=== PATIENT | male | born 1975 | race Caucasian/White ===

== ENCOUNTER 2016-12-17 09:38 | Observation (INO) ==
--- NOTE | 2016-12-17 09:54 | Emergency Department Note ---
Disposition Clinical Impression: Abnormal EKG, Diabetes mellitus, Obesity, History of hypertension, History of hyperlipidemia, Chest pain Disposition: Admitted As Inpatient Referrals: Kimo Qiu MD [Primary Care Provider] - General Adult HPI - General Stated complaint: chest pain to L arm Time Seen by Provider: 12/17/16 09:45 - History of Present Illness HPI Narrative: 41-year-old male reports emergency department complaining of left-sided chest pain going to the left arm. He was at work today. 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 There is no history of trauma. The pain is not associated with movement. There is no history of cough or coughing up blood. No leg swelling or pain. No trauma rash or fever. The patient describes a pressure-like sensation. He has no known history of coronary disease DVT PE or cancer. No primary lung disease like COPD or asthma. There is no history of back pain. He has no personal history of aneurysm. The pain started earlier this morning. He states he had a remote cardiac evaluation and was told he had a heart attack in the past. The patient has no coronary stents. He is not anticoagulated this time. There is no history of acute anxiety. The patient denies any abdominal pain vomiting or diarrhea. There is no history of acute back pain. - Related Data Home Medications Medication Instructions Recorded Confirmed Canagliflozin [Invokana] 100 mg PO DAILY 11/20/15 04/17/16 Citalopram 20 mg PO DAILY 11/20/15 04/17/16 Esomeprazole Magnesium [Nexium 20 mg PO DAILY 11/20/15 04/17/16 24Hr] Gabapentin [Neurontin] 600 mg PO DAILY 11/20/15 04/17/16 Glimepiride [Amaryl] 4 mg PO DAILY 11/20/15 04/17/16 HYDROcodone/Acet 10/325 mg [[place] 325 mg PO DAILY 11/20/15 04/17/16 10-325 mg] Lisinopril [Zestril] 40 mg PO DAILY 11/20/15 04/17/16 Metoprolol Succinate 200 mg PO DAILY 11/20/15 04/17/16 Pravastatin Sodium [Pravachol] 80 mg PO DAILY 11/20/15 04/17/16 hydrALAZINE [HydrALAZINE] 25 mg PO DAILY 11/20/15 04/17/16 metFORMIN [Glucophage] 500 mg PO DAILY 11/20/15 04/17/16 Previous Rx's Medication Instructions Recorded Albuterol Sulfate [Albuterol 2 puff IH Q6HR #1 hfa.aer.ad 11/20/15 Inhaler] Amoxicillin 875 mg PO BID #20 tablet 01/23/16 Benzonatate [Tessalon] 200 mg PO TID PRN #20 capsule 01/23/16 Dicyclomine [Bentyl] 10 mg PO TID PRN #10 capsule 01/23/16 Fluticasone Propionate Nasal 2 spray NS DAILY 7 Days 01/23/16 [Flonase] Loperamide [Imodium] 2 mg PO ONCE PRN #6 capsule 01/23/16 Ondansetron HCl [Zofran] 4 mg PO TID PRN #10 tablet 01/23/16 Perphenazine [Trilafon] 2 mg PO DAILY #14 tablet 02/10/16 Azithromycin [Zithromax] 250 mg PO DAILY #6 tablet 04/17/16 Cyclobenzaprine [Flexeril] 10 mg PO TID #30 tablet 08/14/16 Naproxen [Naprosyn] 500 mg PO BID #30 tablet 08/14/16 Allergies Allergy/AdvReac Type Severity Reaction Status Date / Time No Known Allergies Allergy Verified 08/14/16 14:11 All systems ED: reviewed and negative except as stated. Past Medical History - Past Medical History Medical history: Reports: diabetes, hypertension Psychiatric history: Reports: other - Social History Smoking Status: Never smoker Smokeless Tobacco Status: No Alcohol use: Reports: none Drug use: Reports: none Physical Exam - General Limitations: no limitations - Head Head exam: atraumatic, normocephalic, normal inspection - Eye Eye exam: Present: normal appearance, PERRL, EOMI. Absent: scleral icterus, conjunctival injection, miosis, mydriasis, periorbital swelling - ENT ENT exam: normal exam, normal oropharynx, mucous membranes moist - Neck Neck exam: Present: normal inspection, full ROM, trachea midline. Absent: meningismus - Chest Chest inspection: Present: symmetric chest wall rise. Absent: tenderness - Respiratory Respiratory exam: Present: normal lung sounds bilaterally. Absent: respiratory distress, wheezes, stridor, accessory muscle use, prolonged expiratory phase - Cardiovascular Cardiovascular exam: Present: regular rate, normal rhythm, normal heart sounds - Abdominal Exam Abdominal exam: Present: soft, Non-Tender, normal bowel sounds. Absent: tenderness, distention, guarding, rebound, rigidity, Hanks's sign, pulsatile mass - Extremities Exam Extremities exam: Present: normal inspection, full ROM, normal capillary refill. Absent: tenderness, pedal edema, joint swelling, calf tenderness - Expanded Lower Extremity Exam Lower leg exam: Absent: Homans' sign Neurovascular/Tendon exam: Present: normal capillary refill. Absent: motor deficit, sensory deficit, tendon deficit, extremity cold to touch, pallor - Back Exam Back exam: Present: full ROM. Absent: tenderness, CVA tenderness (R), CVA tenderness (L), vertebral tenderness - Neurological Exam Neurological exam: Present: alert, oriented X3, CN II-XII intact. Absent: motor sensory deficit - Psychiatric Psychiatric exam: Present: normal affect, normal mood - Skin Skin exam: Present: warm, dry, intact, normal color. Absent: rash, cyanosis, diaphoresis, erythema, pallor, mottled Course Vital Signs Temperature 98.1 F 12/17/16 09:51 Pulse Rate 76 12/17/16 09:51 Respiratory Rate 18 12/17/16 09:51 Blood Pressure 171/101 12/17/16 09:51 O2 Sat by Pulse Oximetry 96 12/17/16 09:51 Temperature 98.1 F 12/17/16 09:51 Pulse Rate 79 12/17/16 11:14 Respiratory Rate 14 12/17/16 10:35 Blood Pressure 194/112 12/17/16 11:14 O2 Sat by Pulse Oximetry 97 12/17/16 11:14 Oxygen Delivery Oxygen Delivery Nasal Cannula Medical Decision Making - [facility] Narrative Medical decision making narrative: The patient is planning of left chest pain with left arm pain, his EKG is abnormal, the patient has a history of diabetes hypertension hyperlipidemia and he is obese. His blood pressure has also been significantly elevated in the ED. The patient was given morphine sulfate as well as Phenergan aspirin and Nitropaste. Based on his risk factors for acute coronary syndrome, chest pain, essentially uncontrolled blood pressure, and an abnormal EKG, thought to be appropriate to admit the patient to the hospital. I reviewed the case with the hospitalist on-call who has accepted the patient to their care. - Lab Data Lab results reviewed: Yes I reviewed the patient's lab results. Result diagrams: 12/17/16 10:18 12/17/16 10:18 Lab Results 12/17/16 12/17/16 12/17/16 Range/Units 10:18 10:18 10:18 WBC 12.3 H (4.3-11.1) K/mcL RBC 5.50 (4.19-5.50) M/mcL Hgb 15.9 (12.9-16.9) g/dL Hct 48.3 (37.5-50.1) % MCV 87.8 (83.0-100.0) fL MCH 28.9 (28.0-33.3) pg MCHC 32.9 (31.6-35.5) g/dL RDW 13.2 (11.5-14.5) % Plt Count 296 (140-400) K/mcL MPV 10.4 (9.4-12.4) fL Immature Gran % 0.4 (0-4) % Seg Neutrophils % 65.9 % Lymphocytes % 20.8 % Monocytes % 8.6 % Eosinophils % 3.4 % Basophils % 0.9 % Neutrophils # 8.1 (1.6-8.9) K/mcL Lymphocytes # 2.6 (0.6-4.6) K/mcL Monocytes # 1.1 (0.0-1.3) K/mcL Eosinophils # 0.4 (0.0-0.6) K/mcL Basophils # 0.1 (0.0-0.2) K/mcL Immature Plt Fraction 4.4 (1.1-6.1) % PT 10.6 (9.4-12.1) Seconds INR 1.0 APTT 29.5 (26.0-36.0) Seconds Sodium (136-145) mEq/L Potassium (3.5-4.5) mEq/L Chloride (98-109) mEq/L Carbon Dioxide (19-29) mEq/L BUN (8-26) mg/dL Creatinine (0.72-1.25) mg/dL Est GFR ( Amer) (> 60) Est GFR (Non-Af Amer) (> 60) BUN/Creatinine Ratio (6-26) Glucose (70-99) mg/dL Calculated Osmolality (280-300) Calcium (8.6-10.8) mg/dL Total Bilirubin (0.2-1.2) mg/dL Direct Bilirubin (0.0-0.5) mg/dL Indirect Bilirubin (0.0-1.2) mg/dL AST (5-34) Units/L ALT (0-55) Units/L Alkaline Phosphatase (38-126) Units/L Troponin I (0-0.03) ng/mL C-Reactive Protein (Less than 5) mg/L B-Natriuretic Peptide 22 (0-100) pg/mL Serum Total Protein (6.0-8.3) g/dL Albumin (3.5-5.0) g/dL Globulin (2.4-3.5) g/dL Albumin/Globulin Ratio (1.1-2.2) Lipase (8-78) Units/L 12/17/16 12/17/16 Range/Units 10:18 10:18 WBC (4.3-11.1) K/mcL RBC (4.19-5.50) M/mcL Hgb (12.9-16.9) g/dL Hct (37.5-50.1) % MCV (83.0-100.0) fL MCH (28.0-33.3) pg MCHC (31.6-35.5) g/dL RDW (11.5-14.5) % Plt Count (140-400) K/mcL MPV (9.4-12.4) fL Immature Gran % (0-4) % Seg Neutrophils % % Lymphocytes % % Monocytes % % Eosinophils % % Basophils % % Neutrophils # (1.6-8.9) K/mcL Lymphocytes # (0.6-4.6) K/mcL Monocytes # (0.0-1.3) K/mcL Eosinophils # (0.0-0.6) K/mcL Basophils # (0.0-0.2) K/mcL Immature Plt Fraction (1.1-6.1) % PT (9.4-12.1) Seconds INR APTT (26.0-36.0) Seconds Sodium 140 (136-145) mEq/L Potassium 3.5 (3.5-4.5) mEq/L Chloride 102 (98-109) mEq/L Carbon Dioxide 28 (19-29) mEq/L BUN 17 (8-26) mg/dL Creatinine 0.75 (0.72-1.25) mg/dL Est GFR ( Amer) > 60 (> 60) Est GFR (Non-Af Amer) > 60 (> 60) BUN/Creatinine Ratio 23 (6-26) Glucose 142 H (70-99) mg/dL Calculated Osmolality 294 (280-300) Calcium 9.1 (8.6-10.8) mg/dL Total Bilirubin 0.3 (0.2-1.2) mg/dL Direct Bilirubin 0.2 (0.0-0.5) mg/dL Indirect Bilirubin 0.1 (0.0-1.2) mg/dL AST 12 (5-34) Units/L ALT 20 (0-55) Units/L Alkaline Phosphatase 112 (38-126) Units/L Troponin I 0.02 (0-0.03) ng/mL C-Reactive Protein 20 H (Less than 5) mg/L B-Natriuretic Peptide (0-100) pg/mL Serum Total Protein 7.3 (6.0-8.3) g/dL Albumin 3.6 (3.5-5.0) g/dL Globulin 3.7 H (2.4-3.5) g/dL Albumin/Globulin Ratio 1.0 L (1.1-2.2) Lipase 28 (8-78) Units/L - Radiology Data Radiology results reviewed: Yes I reviewed the patient's radiology results.
[2016-12-17] MEDS ORDERED: Aspirin 325 MG TABLET PO ONE (10:07)
[2016-12-17] MEDS ORDERED: *HR* Morphine 2 MG/ML SYRINGE IVP ONE ×2 (10:08→11:16)
[2016-12-17] MEDS ORDERED: *HR* Promethazine 25 MG/ML VIAL IVP ONE (10:09)
[2016-12-17 10:28] LABS: Basophils # 0.1 K/mcL (0.0-0.2); Basophils % 0.9 %; Eosinophils # 0.4 K/mcL (0.0-0.6); Eosinophils % 3.4 %; Hematocrit 48.3 % (37.5-50.1); Hemoglobin 15.9 g/dL (12.9-16.9); Immature Granulocytes % 0.4 % (0-4); Immature Platelets 4.4 % (1.1-6.1); Lymphocytes # 2.6 K/mcL (0.6-4.6); Lymphocytes % 20.8 %; Mean Corpuscular HGB Conc 32.9 g/dL (31.6-35.5); Mean Corpuscular Hemoglobin 28.9 pg (28.0-33.3); Mean Corpuscular Volume 87.8 fL (83.0-100.0); Mean Platelet Volume 10.4 fL (9.4-12.4); Monocytes # 1.1 K/mcL (0.0-1.3); Monocytes % 8.6 %; Neutrophils # 8.1 K/mcL (1.6-8.9); Platelet Count 296 K/mcL (140-400); Red Cell Distribution Width 13.2 % (11.5-14.5); Segmented Neutrophils % 65.9 %
[2016-12-17 10:31] LABS: Prothrombin Time 10.6 Seconds (9.4-12.1)
[2016-12-17 10:33] LABS: Activated Partial Thrombo Time 29.5 Seconds (26.0-36.0)
[2016-12-17 10:41] LABS: Alanine Aminotransferase 20 Units/L (0-55); Albumin 3.6 g/dL (3.5-5.0); Alkaline Phosphatase 112 Units/L (38-126); Aspartate Amino Transferase 12 Units/L (5-34); BUN/Creatinine Ratio 23 (6-26); Bilirubin,Direct 0.2 mg/dL (0.0-0.5); Bilirubin,Indirect 0.1 mg/dL (0.0-1.2); Bilirubin,Total 0.3 mg/dL (0.2-1.2); Blood Urea Nitrogen 17 mg/dL (8-26); C-Reactive Protein 20 mg/L (Less than 5); Calcium 9.1 mg/dL (8.6-10.8); Carbon Dioxide 28 mEq/L (19-29); Chloride 102 mEq/L (98-109); Globulin 3.7 g/dL (2.4-3.5); Glucose 142 mg/dL (70-99); Lipase 28 Units/L (8-78); Osmolality,Calculated 294 (280-300); Potassium 3.5 mEq/L (3.5-4.5); Sodium 140 mEq/L (136-145); Total Protein 7.3 g/dL (6.0-8.3); eGFR For African Americans > 60 (> 60); eGFR For Non-African Americans > 60 (> 60)
[2016-12-17] MEDS ORDERED: Nitroglycerin 1 INCH/GM PACKET TP ONE (11:16)
[2016-12-17] MEDS ORDERED: Naloxone 0.4 MG/ML INJ IVP PRN (14:10)
[2016-12-17] MEDS ORDERED: *HR* Dextrose 50 % in Water (Syg) 50 ML SYRINGE IVP PRN (14:14)
[2016-12-17] MEDS ORDERED: Dextrose Gel 15 GM PO PRN ×2 (14:14)
[2016-12-17] MEDS ORDERED: D5% in Water 1,000 ML IVC PRN (14:14)
[2016-12-17] MEDS: Acetaminophen 325 MG TABLET PO PRN (14:39)
--- NOTE | 2016-12-17 15:01 | Internal Med History&Physical ---
<Trang Cooper - Last Filed: 12/17/16 15:21> Date of Encounter: 12/17/16 Time of Encounter: 14:58 Assessment and Plan (1) Chest pain Current visit: Yes Status: Acute 1 she began to experience an onset of chest pressure 10 RADIATING to left arm which began today. Pain was relieved with nitroglycerin. Patient also experiencing hypertension during episode systolic 180s to 200. Diastolic over 100. Risk factors include diabetes hypertension hyperlipidemia morbid obesity. First cardiac troponin was negative we will continue to cycle cardiac 2 we will obtain cardiac echo 3 continue with nitroglycerin past year for chest pain 4 continue with metoprolol and statin and aspirin we will add Imdur 5 oxygen as needed to maintain SPO2 greater than 92% 6 continuous cardiac monitoring 7 we will consult cardiology once echo cardiac enzymes resulted Qualifiers: Chest pain type: unspecified Qualified Code(s): R07.9 - Chest pain, unspecified (2) Hypertensive urgency Current visit: Yes Status: Acute 1 patient's blood pressure elevated upon presentation 180 systolic up to 200 diastolic has been 100. Patient was given nitroglycerin which did bring down his blood pressure. We will continue with lisinopril we will increase hydralazine to 3 times a day continue with metoprolol-goal is to maintain systolic less than 160 (3) Diabetes mellitus Current visit: Yes Status: Acute 1 we will hold oral anti-diabetics and place on sliding scale Accu-Cheks before meals and at bedtime 2 diabetic diet Qualifiers: Diabetes mellitus type: type 2 Diabetes mellitus complication status: without complication Diabetes mellitus correction insulin use: without correction use Qualified Code(s): E11.9 - Type 2 diabetes mellitus without complications (4) Obstructive sleep apnea Current visit: Yes Status: Acute 1 continue with CPAP (5) DVT prophylaxis Current visit: Yes Status: Acute [facility] Internal Medicine - H&P: HPI Chief complaint: CP Admitted From: Emergency Dept History of present illness: Mr. Calhoun is a 41 year old male has history of hypertension hyperlipidemia diabetes obstructive sleep apnea morbid obesity. 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 The pressure radiated to his left arm he did feel nauseated and diaphoretic and experienced some palpitations. There were no aggravating factors he states the pain was relieved once he received nitroglycerin in the emergency department. The patient states he did have a past history of [place] in 2013 he did have a cardiac catheterization which revealed mild coronary disease. He states he is taking his medication as prescribed he was recently started on the new medication for his diabetes Bydureon, otherwise he has been his normal state of health. He presented to the ER with the above complaints. According to ER records first cardiac troponin was 0.0 to rest of his lab work was unremarkable. Chest x-ray with no acute process. EKG did not reveal left ventricular hypertrophy otherwise no ST-T wave abnormalities. Patient was given aspirin and nitroglycerin which did relieve his chest pain. His blood pressure on presentation was elevated and during ER stay blood pressure was up to 200/120 at 1.8 he was given nitroglycerin which did break down his blood pressure systolic 180 He has been admitted for further workup evaluation. Presently patient denies any chest pain or shortness of breath, blood pressure systolic 180s sinus rhythm on the monitor. I think this case with Dr. Cross who agrees with plan Past Med Surg Social Fam HX - Past Medical History Medical history: diabetes, hypertension Psychiatric history: other - Social History Smoking Status: Never smoker Smokeless Tobacco Status: No Alcohol use: none Drug use: none - Family History Father Living Status: Still Living Hx Family Cardiac Disorders: Yes ([place] ) Mother Living Status: Still Living Hx Family Endocrine Disorder: Yes (DM) Internal Medicine - H&P: Meds Albuterol Sulfate [Albuterol Inhaler] 2 puff IH Q6HR #1 hfa.aer.ad 11/20/15 [Rx] Canagliflozin [Invokana] 100 mg PO DAILY 11/20/15 [History] Citalopram Hydrobromide [Celexa] 40 mg PO DAILY 11/20/15 [History] Glimepiride [Amaryl] 4 mg PO DAILY 11/20/15 [History] HYDROcodone/Acet 10/325 mg [[place] 10-325 mg] 325 mg PO DAILY 11/20/15 [History] Lisinopril [Zestril] 40 mg PO DAILY 11/20/15 [History] Metoprolol Succinate 200 mg PO DAILY 11/20/15 [History] Pravastatin Sodium [Pravachol] 80 mg PO DAILY 11/20/15 [History] hydrALAZINE [HydrALAZINE] 25 mg PO DAILY 11/20/15 [History] Amlodipine Besylate 10 mg PO DAILY 12/17/16 [History] Exenatide Microspheres [Bydureon Pen] 2 mg SQ QWEEK 12/17/16 [History] Metformin HCl [Metformin HCl ER] 1,000 mg PO BID 12/17/16 [History] Quetiapine Fumarate [SEROquel] 25 mg PO HS 12/17/16 [History] Allergies No Known Allergies Allergy (Verified 12/17/16 12:30) All Systems PM: A 10-system review of systems was performed and is negative for pertinent findings except as documented above in the HPI. - Constitutional Constitutional: no chills, no fever(s), no night sweats - EENT Eyes: no change in vision, no discharge, no pain, no photophobia Ears: no ear discharge, no ear pain, no tinnitus - Cardiovascular Cardiovascular ROS IM: no chest pain, no diaphoresis, no dyspnea, no lightheadedness, no palpitations, no syncope - Respiratory Respiratory: no cough, no dyspnea, no wheezing, no excessive phlegm production - Gastrointestinal Gastrointestinal: no abdominal pain, no diarrhea, no hematemesis, no hematochezia, no melena, no nausea, no vomiting - Musculoskeletal Musculoskeletal ROS IM: no numbness, no tingling - Integumentary Integumentary IM: no rash, no unusual bruising - Neurological Neurological ROS: no confusion, no convulsions, no focal weakness, no numbness, no tingling, no tremor(s) - Hematologic/Lymphatic Hematologic/Lymphatic: no easy bruising - Constitutional Vitals: Temp Pulse Resp BP Pulse Ox 99.6 F 77 16 186/95 92 12/17/16 13:27 12/17/16 13:27 12/17/16 13:27 12/17/16 13:27 12/17/16 13:27 General appearance: Present: A&O X 3, morbidly obese, answers questions appropriately - Head Head exam: Present: atraumatic, normocephalic - Eye Eye exam: Present: PERRL, conjuntiva pink, sclera anicteric Pupils: Present: PERRL - Neck Neck exam general surgery: Present: supple, trachea midline. Absent: lymphadenopathy - Respiratory Respiratory exam: Present: CTAB. Absent: accessory muscle use, rales, rhonchi, wheezes - Cardiovascular Cardiovascular exam: Present: RRR, +S1, +S2. Absent: diastolic murmur, gallop, rubs, systolic murmur - GI/Abdominal GI/Abdominal exam: Present: normal bowel sounds, soft, no peritoneal signs. Absent: distended, tenderness - Extremities Exam Extremities exam: Present: warm, radial pulses palpable and symetrical. Absent : calf tenderness, cyanotic, pedal edema - Neurological Exam Neurological exam: Present: CN II-XII intact, oriented X3, no focal deficits. Absent: pronater drift, facial droop, speech deficit - Skin Skin exam: Present: dry, intact Internal Med - H&P Results - Labs CBC & Chem 7: 12/17/16 10:18 12/17/16 10:18 - EKG Data EKG shows normal: sinus rhythm - EKG Data Prior EKG available for review: no - Diagnostic Studies Other Images Additional comments: Chest X-Ray 12/17/16 10:06 IMPRESSION: No acute process. D/ / 12/17/2016 11:41:32 Douglas Argueta MD / norbert Interpreting Provider: Douglas Argueta MD <TanishaMarie E - Last Filed: 12/17/16 18:44> Date of Encounter: 12/17/16 Internal Medicine - H&P: HPI History of present illness: Mr. Calhoun is a 41 year old male All Systems PM: A 10-system review of systems was performed and is negative for pertinent findings except as documented above in the HPI. - Constitutional Vitals: Temp Pulse Resp BP Pulse Ox 97.7 F 72 20 163/76 90 12/17/16 15:28 12/17/16 15:28 12/17/16 16:48 12/17/16 15:28 12/17/16 16:48 Internal Med - H&P Results - Labs CBC & Chem 7: 12/17/16 10:18 12/17/16 10:18 Labs: Cardiac Enzymes 12/17/16 Range/Units 16:20 Troponin I 0.01 (0-0.03) ng/mL - Attending Attestation I examined this patient and reviewed laboratory, imaging and all diagnostic data. My medical decision-making was reviewed with Trang Cooper - ECOLOGICAL MODELER. I agree with the documented findings, disposition and treatment plan as described above. History and exam by me shows: atypical chest pain with associated hypertension BP 204/124. Received nitropaste and aspirin. Started on aspirin, statin. Started on imdur, hydralazine, amlodipine. control BP. follow up serial troponins. stress test in AM
[2016-12-17] MEDS ORDERED: hydrALAZINE 25 MG TABLET PO SCH (16:00)
--- NOTE | 2016-12-17 16:19 | Electrocardiograph Report ---
[facility] Test Date: 2016-12-17 Pat Name: Noe Calhoun Department: 102 Room: 3B49 Gender: M Supervisor Operations: Vl : 1975 Requested By: Richard Valenzuela Order Number: [id number] Reading MD: Jose Delarosa DO Measurements Intervals [place] Rate: 73 P: -3 [place]: 187 QRS: 1 QRSD: 94 T: 42 QT: 388 QTc: 414 Interpretive Statements SINUS RHYTHM LEFT VENTRICULAR HYPERTROPHY AND ST-T CHANGE [VOLTAGE CRITERIA PLUS ST/T ABNORMALITY] Electronically Signed On 12-17-2016 16:17:35 EDT by Jose Delarosa DO
[2016-12-17] MEDS ORDERED: *HR* Morphine 2 MG/ML SYRINGE IVP PRN (16:20)
[2016-12-17] MEDS: Ondansetron 4 MG/2 ML VIAL IVP PRN (16:36)
[2016-12-17] MEDS: Insulin LISPRO 300 UNITS/3 ML VIAL SQ SCH ×2 (17:43→23:26)
[2016-12-17] MEDS ORDERED: Metoclopramide 10 MG/2 ML VIAL IVP PRN (19:25)
[2016-12-17] MEDS: *HR* Promethazine 25 MG/ML VIAL IVP PRN (19:55)
[2016-12-17] MEDS: *HR* HYDROcodone/Acet 5/325 mg TABLET PO PRN (19:55)
[2016-12-17] MEDS ORDERED: Perflutren Lipid Microsphere 1.3 ML in 0.9 % Sodium Chloride 8.7 ML IVP ONE (22:02)
[2016-12-17] MEDS ORDERED: Perflutren Lipid Microsphere 2 ML VIAL ONE (22:05)
[2016-12-18] MEDS: hydrALAZINE 25 MG TABLET PO SCH ×3 (02:15→17:01)
[2016-12-18 06:19] LABS: Basophils # 0.1 K/mcL (0.0-0.2); Basophils % 0.6 %; Eosinophils # 0.2 K/mcL (0.0-0.6); Eosinophils % 1.6 %; Hematocrit 47.5 % (37.5-50.1); Hemoglobin 15.2 g/dL (12.9-16.9); Immature Granulocytes % 0.4 % (0-4); Lymphocytes # 2.5 K/mcL (0.6-4.6); Lymphocytes % 20.6 %; Mean Corpuscular Hemoglobin 28.5 pg (28.0-33.3); Mean Corpuscular Volume 89.1 fL (83.0-100.0); Mean Platelet Volume 10.3 fL (9.4-12.4); Monocytes # 0.9 K/mcL (0.0-1.3); Monocytes % 7.5 %; Neutrophils # 8.5 K/mcL (1.6-8.9); Platelet Count 280 K/mcL (140-400); Red Blood Count 5.33 M/mcL (4.19-5.50); Red Cell Distribution Width 13.6 % (11.5-14.5); Segmented Neutrophils % 69.3 %
[2016-12-18 06:37] LABS: BUN/Creatinine Ratio 23 (6-26); Blood Urea Nitrogen 17 mg/dL (8-26); Calcium 9.1 mg/dL (8.6-10.8); Carbon Dioxide 32 mEq/L (19-29); Chloride 103 mEq/L (98-109); Cholesterol 141 mg/dL (< 200); Glucose 112 mg/dL (70-99); HDL Cholesterol 28 mg/dL (40-59); LDL Cholesterol,Calculated 83 mg/dL (0-99); Osmolality,Calculated 296 (280-300); Potassium 4.1 mEq/L (3.5-4.5); Sodium 142 mEq/L (136-145); Triglycerides 152 mg/dL (< 150); eGFR For African Americans > 60 (> 60); eGFR For Non-African Americans > 60 (> 60)
[2016-12-18] MEDS: *HR* Enoxaparin 40 MG/0.4 ML SYRINGE SQ SCH (06:55)
[2016-12-18] MEDS ORDERED: hydrALAZINE 25 MG TABLET PO SCH (09:00)
[2016-12-18] MEDS ORDERED: Regadenoson 0.4 MG/5 ML SYRINGE IVP ONE (09:20)
[2016-12-18 11:53] LABS: Amphetamine Screen,Urine Negative ng/mL (Cutoff=1000); Barbiturate Screen,Urine Negative ng/mL (Cutoff=200); Benzodiazepines Screen,Urine Negative ng/mL (Cutoff=200); Cannabinoid Screen,Urine Negative ng/mL (Cutoff = 50); Cocaine Screen,Urine Negative ng/mL (Cutoff= 300); Opiate Screen,Urine Positive ng/mL (Cutoff=300); Phencyclidine Screen,Urine Negative ng/mL (Cutoff=25)
[2016-12-18] MEDS: Metoprolol XL (24 HR) Succ 50 MG TAB.ER.24H PO SCH (12:08)
[2016-12-18] MEDS: Aspirin 81 MG TAB.CHEW PO SCH (12:09)
[2016-12-18] MEDS: Isosorbide MONOnitrate (24 HR) 60 MG TAB.ER.24H PO SCH (12:09)
[2016-12-18] MEDS: amLODIPine 5 MG TABLET PO SCH (12:09)
[2016-12-18] MEDS: Lisinopril 20 MG TABLET PO SCH (12:09)
[2016-12-18] MEDS: Insulin LISPRO 300 UNITS/3 ML VIAL SQ SCH ×3 (12:09→20:27)
[2016-12-18] MEDS: *HR* HYDROcodone/Acet 5/325 mg TABLET PO PRN ×2 (15:50→20:26)
--- NOTE | 2016-12-18 16:32 | Internal Med Progress Note ---
Date of Encounter: 12/18/16 Time of Encounter: 09:00 - Assessment and plan (1) Chest pain Current Visit: Yes Status: Acute Assessment and plan: atypical chest pain. likely from uncontrolled BP. negative troponins. EKG is unremarkable. echocardiogram LVEF 65%, mdoerate LVH. Stress test ordered. He is asymptomatic now. no telemetry events. Qualifiers: Chest pain type: unspecified Qualified Code(s): R07.9 - Chest pain, unspecified (2) Hypertensive urgency Current Visit: Yes Status: Acute Assessment and plan: BP up to 204/124 the day of admission. BP is better controlled. continue hydralazine, amlodipine, lisinopril and imdur. close monitor. (3) Diabetes mellitus Current Visit: Yes Status: Chronic Assessment and plan: glucose is adequate. close monitoring. iss. diabetic diet. Qualifiers: Diabetes mellitus type: type 2 Diabetes mellitus complication status: without complication Diabetes mellitus terminal gauger insulin use: without intermediate use Qualified Code(s): E11.9 - Type 2 diabetes mellitus without complications (4) Obstructive sleep apnea Current Visit: Yes Status: Acute (5) Morbid obesity with BMI of 45.0-49.9, adult Current Visit: Yes Status: Acute Assessment and plan: bmi 46 - Subjective Interval history: no chest pain. no shortness of breath. no complains. - Constitutional Vitals: Temp Pulse Resp BP Pulse Ox 97.6 F 77 16 158/88 91 12/18/16 14:49 12/18/16 14:49 12/18/16 14:49 12/18/16 14:49 12/18/16 14:49 General appearance: Present: cooperative, A&O X 3, morbidly obese, no acute distress, answers questions appropriately - Eye Eye exam: Present: PERRL, sclera anicteric - Neck Neck exam general surgery: Present: supple, trachea midline. Absent: lymphadenopathy - Respiratory Respiratory exam: Present: CTAB - Cardiovascular Cardiovascular exam: Present: RRR - GI/Abdominal GI/Abdominal exam: Present: normal bowel sounds, soft. Absent: distended, tenderness - Extremities Exam Extremities exam: Absent: pedal edema - Back Exam Back exam: Absent: CVA tenderness (L), CVA tenderness (R) - Neurological Exam Neurological exam: Present: alert, oriented X3, no focal deficits, strengths equal and symetr throughout. Absent: pronater drift, facial droop, speech deficit Internal Medicine: Result - Labs CBC & Chem 7: 12/18/16 05:55 12/18/16 05:55 Labs: Short CBC 12/18/16 Range/Units 05:55 WBC 12.3 H (4.3-11.1) K/mcL Hgb 15.2 (12.9-16.9) g/dL Hct 47.5 (37.5-50.1) % Plt Count 280 (140-400) K/mcL Neutrophils # 8.5 (1.6-8.9) K/mcL BMP 12/18/16 05:55 Sodium 142 Potassium 4.1 Chloride 103 Carbon Dioxide 32 H BUN 17 Creatinine 0.74 Glucose 112 H Calcium 9.1 Cardiac Enzymes 12/17/16 12/17/16 Range/Units 16:20 22:36 Troponin I 0.01 0.01 (0-0.03) ng/mL - ABG Interpretation ABG results: PT/INR, D-dimer PT 10.6 Seconds (9.4-12.1) 12/17/16 10:18 Consult Discharge Plan - Plan Referrals: Kimo Qiu MD [Primary Care Provider] - 12/25/16 2:00 pm
[2016-12-18] MEDS: *HR* Promethazine 25 MG/ML VIAL IVP PRN (17:02)
[2016-12-19] MEDS: hydrALAZINE 25 MG TABLET PO SCH (00:09)
[2016-12-19 05:24] LABS: BUN/Creatinine Ratio 18 (6-26); Blood Urea Nitrogen 12 mg/dL (8-26); Calcium 9.1 mg/dL (8.6-10.8); Carbon Dioxide 29 mEq/L (19-29); Chloride 105 mEq/L (98-109); Glucose 100 mg/dL (70-99); Magnesium 1.9 mg/dL (1.6-2.6); Osmolality,Calculated 294 (280-300); Potassium 3.4 mEq/L (3.5-4.5); Sodium 142 mEq/L (136-145); eGFR For African Americans > 60 (> 60); eGFR For Non-African Americans > 60 (> 60)
[2016-12-19] MEDS: *HR* Enoxaparin 40 MG/0.4 ML SYRINGE SQ SCH (06:27)
[2016-12-19] MEDS ORDERED: hydrALAZINE 25 MG TABLET PO SCH (09:00)
[2016-12-19] MEDS: Metoprolol XL (24 HR) Succ 50 MG TAB.ER.24H PO SCH (09:05)
[2016-12-19] MEDS: Aspirin 81 MG TAB.CHEW PO SCH (09:05)
[2016-12-19] MEDS: amLODIPine 5 MG TABLET PO SCH (09:05)
[2016-12-19] MEDS: Lisinopril 20 MG TABLET PO SCH (09:05)
[2016-12-19] MEDS: Isosorbide MONOnitrate (24 HR) 60 MG TAB.ER.24H PO SCH (09:06)
[2016-12-19] MEDS: Insulin LISPRO 300 UNITS/3 ML VIAL SQ SCH ×2 (09:06→12:21)
--- NOTE | 2016-12-19 10:50 | Nuclear Medicine Stress Report ---
Regadenoson Nuclear 2 day Name: Noe Calhoun Date of Study: 12/18/2016 Date: 1975 Ht: 70.0 in Medical Record#: [id number] Age: 41 Wt: 324.0 lb Gender: Male Order #: [id number] Location: [facility] Room: [facility] Supervising Provider: Michael Sykes CNP Reading Physician: Maria Victoria Saunders DO Ordering Physician: Marie Garay MD Primary Care Physician: Kimo Qiu MD Stress Technologist: Shilpa Glass, [employer],[facility] Baby Attendant: Pantera Hanna Indications: Chest Pain Impression: Perfusion imaging was negative for ischemia or infarct. Pharmacologic ECG was non diagnostic for ischemia. Hypertensive throughout study. Gated EF = 60%. LV is mildly dilated. Patient complained of 2/10 chest pain during recovery. Recommend clinical correlation. History: Hypertension Diabetes Hypercholesteremia Stress Test Summary: Stress Test Type: Pharmacologic Regadenoson 0.4mg/5ml given IV Baseline Information: Initial Heart Rate: 89 Blood Pressure: 186/90 Stress Information: Test Terminated Due to (primary): As per protocol Maximum Blood Pressure: 182/86 Maximum Heart Rate: 108 Percent Maximum Heart Rate Achieved: 61 Double Product: [id number] Symptoms: Chest pain Nuclear Summary: SPECT myocardial perfusion imaging using Tc99m Sestamibi given intravenously was performed at rest and following cardiac stress testing. The resting images were obtained following initial dose of 33.1 mCi. Following stress an additional dose of 32.6 mCi was given at peak exercise or 30 seconds post regadenoson infusion. Medication Given: Time Medication Dose Units Route Findings: Stress Note * Resting ECG demonstrated normal sinus rhythm with nonspecific ST T wave abnormalities. * Pharmacologic stress ECG is non diagnostic for ischemia due to baseline non-specific ST and T changes. * No arrhythmias were noted during stress. * Patient described 2 out of 10 chest pain during recovery. Hemodynamic responses * Normal hemodynamic responses to pharmacologic stress. Patient hypertensive throughout. Study Quality * Technically challenging 2-day study secondary to body habitus. Left Ventricle * The left ventricle is dilated. TID * No evidence of transient ischemic dilatation. Lung Uptake * There is no evidence of increase lung uptake. NORMALS * Normal wall motion. PERFUSION * There is a small size, mild intensity resting perfusion defect in the apical lateral wall that improves with stress. Findings are consistent with artifact. * Other segments demonstrate homogenous rest and stress perfusion. Gated EF % * Gated EF = 60%. Updated by Maria Victoria Saunders on 12/19/2016 10:45:46 AM electronically signed on 12/19/2016 10:46:45 AM with status of Final
[2016-12-19] MEDS: *HR* HYDROcodone/Acet 5/325 mg TABLET PO PRN (12:56)
[2016-12-19] MEDS: Ondansetron 4 MG/2 ML VIAL IVP PRN (14:21)
[2016-12-19] MEDS: Acetaminophen 325 MG TABLET PO PRN (14:26)
[2016-12-19 14:41] VITALS: BP 162/81
--- NOTE | 2016-12-19 14:44 | Discharge Summary ---
Date of Encounter: 12/19/16 Time of Encounter: 14:40 - Discharge Diagnosis (1) Chest pain Priority: Primary Status: Acute Qualifiers: Chest pain type: unspecified Qualified Code(s): R07.9 - Chest pain, unspecified (2) Hypertensive urgency Priority: Primary Status: Acute (3) Diabetes mellitus Priority: Secondary Status: Chronic Qualifiers: Diabetes mellitus type: type 2 Diabetes mellitus complication status: without complication Diabetes mellitus senior care insulin use: without bed bug exterminator use Qualified Code(s): E11.9 - Type 2 diabetes mellitus without complications (4) Obstructive sleep apnea Priority: Secondary Status: Chronic (5) Morbid obesity with BMI of 45.0-49.9, adult Priority: Secondary Status: Chronic - Discharge Medications Prescriptions: Aspirin 81 mg PO DAILY #30 tab.chew Hydralazine HCl 100 mg PO TID #90 tablet Isosorbide MONOnitrate (24 HR) [Imdur] 60 mg PO DAILY #30 tab.er.24h Home Medications: Albuterol Sulfate [Albuterol Inhaler] 2 puff IH Q6HR #1 hfa.aer.ad 11/20/15 [Rx] Canagliflozin [Invokana] 100 mg PO DAILY 11/20/15 [History] Citalopram Hydrobromide [Celexa] 40 mg PO DAILY 11/20/15 [History] Glimepiride [Amaryl] 4 mg PO DAILY 11/20/15 [History] HYDROcodone/Acet 10/325 mg [[place] 10-325 mg] 325 mg PO DAILY 11/20/15 [History] Lisinopril [Zestril] 40 mg PO DAILY 11/20/15 [History] Metoprolol Succinate 200 mg PO DAILY 11/20/15 [History] Pravastatin Sodium [Pravachol] 80 mg PO DAILY 11/20/15 [History] Amlodipine Besylate 10 mg PO DAILY 12/17/16 [History] Exenatide Microspheres [Bydureon Pen] 2 mg SQ QWEEK 12/17/16 [History] Metformin HCl [Metformin HCl ER] 1,000 mg PO BID 12/17/16 [History] Quetiapine Fumarate [Seroquel] 25 mg PO HS 12/17/16 [History] Aspirin 81 mg PO DAILY #30 tab.chew 12/19/16 [Rx] Hydralazine HCl 100 mg PO TID #90 tablet 12/19/16 [Rx] Isosorbide MONOnitrate (24 HR) [Imdur] 60 mg PO DAILY #30 tab.er.24h 12/19/16 [ Rx] Allergies/Adverse Reactions: Allergies No Known Allergies Allergy (Verified 12/17/16 12:30) Procedures/tests Complete & Pending: Procedures Performed prior 72 hours Category Date Time Status NM monserrat perf SPECT multi [NM] Routine Exams 12/18/16 07:46 Taken EV echocardiogram w enhance Routine Y 12/17/16 14:57 Completed SP pharm nuclear stress Routine Y 12/18/16 07:46 Completed Date of admission: 12/17/16 12:25 Primary care physician: Kimo Qiu MD - Patient Status Disposition: Home, Self-Care Condition: Good Functional capacity at discharge: independent ambulation Overall status at discharge: patient is progressing back to baseline - Discharge Instructions Follow Up With: Kimo Qiu MD [Primary Care Provider] - 12/25/16 2:00 pm Forms: ED Satisfaction Letter Additional Instructions: Please take all your blood pressure medications as prescribed. check your blood pressure twice daily, write down the numbers and bring records to doctor's appointment. follow a low salt diet. follow up with your doctor for high blood pressure and weight loss program - Diet and Activity Activity: resume usual activities as tolerated Diet: low fat, low cholesterol, low salt diet Interval History: no chest pain. no shortness of breath. no complains. he is eating and ambulating well. Hospital course: Mr. Calhoun is a 41 year old male with past medical history of DM, HTN, severe obesity and SEE who presents with atypical chest pain. BP up to 204/124 the day of admission. His chest pain is likely due to uncontrolled BP. negative troponins. EKG is unremarkable. echocardiogram LVEF 65%, mdoerate LVH. Stress test negative. He continued his home dose of amlodipine 10 gm, lisinopril 40 mg daily and metoprolol 200 mg daily and was started on imdur 60 mg daily and hydralazine was increased to 100 mg tid. He remained hemodynamically stable and asymptomatic. no telemetry events. PLAN: patient instructed to decrease his salt intake and to take all BP meds as prescribed. He should check his Bp daily and f/u with pcp. - Time Spent with Patient Total time spent providing and/or coordinating discharge services: - Constitutional Vitals: Temp Pulse Resp BP Pulse Ox 97.9 F 76 18 189/103 96 12/19/16 11:25 12/19/16 11:25 12/19/16 11:25 12/19/16 11:25 12/19/16 11:25 General appearance: Present: cooperative, A&O X 3, morbidly obese, pleasant, no acute distress, answers questions appropriately - Neck Neck exam general surgery: Present: supple, trachea midline. Absent: lymphadenopathy - Respiratory Respiratory exam: Present: CTAB - Cardiovascular Cardiovascular exam: Present: RRR - GI/Abdominal GI/Abdominal exam: Present: normal bowel sounds, soft. Absent: distended, tenderness - Extremities Exam Extremities exam: Absent: pedal edema - Back Exam Back exam: Absent: CVA tenderness (L), CVA tenderness (R) - Neurological Exam Neurological exam: Present: alert, oriented X3, no focal deficits, strengths equal and symetr throughout. Absent: facial droop, speech deficit - Skin Skin exam: Absent: rash
== END 2016-12-19 15:45 | disposition home or self-care (01) ==
LOC: EMEROO 09:38 → 3BNU 09:38 → SUATTDRO 12:25 → 3BNU 13:21
PROVIDERS: ADMIT Internal Medicine; ATTEND Internal Medicine

== ENCOUNTER 2017-11-30 00:26 | Observation (INO) ==
[2017-11-30 00:55] LABS: Basophils # 0.2 K/mcL (0.0-0.2); Basophils % 1.2 %; Eosinophils # 0.5 K/mcL (0.0-0.6); Eosinophils % 3.8 %; Hematocrit 46.5 % (37.5-50.1); Hemoglobin 16.1 g/dL (12.9-16.9); Immature Granulocytes % 0.3 % (0-4); Lymphocytes # 3.4 K/mcL (0.6-4.6); Mean Corpuscular HGB Conc 34.6 g/dL (31.6-35.5); Mean Corpuscular Hemoglobin 29.9 pg (28.0-33.3); Mean Corpuscular Volume 86.3 fL (83.0-100.0); Mean Platelet Volume 10.2 fL (9.4-12.4); Monocytes # 0.9 K/mcL (0.0-1.3); Monocytes % 7.2 %; Neutrophils # 7.3 K/mcL (1.6-8.9); Platelet Count 317 K/mcL (140-400); Red Blood Count 5.39 M/mcL (4.19-5.50); Red Cell Distribution Width 13.5 % (11.5-14.5); Segmented Neutrophils % 59.5 %
[2017-11-30 01:02] LABS: INR 0.9
[2017-11-30 01:04] LABS: Activated Partial Thrombo Time 32.4 Seconds (26.0-36.0)
[2017-11-30 01:17] LABS: Troponin I < 0.03 ng/mL (< 0.04)
[2017-11-30 01:27] LABS: BUN/Creatinine Ratio 19 (6-26); Blood Urea Nitrogen 11 mg/dL (6-20); Calcium 9.3 mg/dL (8.6-10.3); Carbon Dioxide 28 mEq/L (23-29); Chloride 102 mEq/L (98-107); Glucose 165 mg/dL (70-105); Osmolality,Calculated 293 (280-300); Potassium 3.5 mEq/L (3.5-5.1); Sodium 140 mEq/L (136-145); eGFR For African Americans > 60 (> 60); eGFR For Non-African Americans > 60 (> 60)
[2017-11-30] MEDS ORDERED: Aspirin 81 MG TAB.CHEW PO STA (02:16)
--- NOTE | 2017-11-30 02:21 | Emergency Department Note ---
Disposition Clinical Impression: Shortness of breath Chest pain Qualifiers: Chest pain type: unspecified Qualified Code(s): R07.9 - Chest pain, unspecified Disposition: Admitted As Inpatient Condition: Good Time of Disposition: 02:25 General Adult HPI - General Chief complaint: ED Chest Pain Stated complaint: chest pain Time Seen by Provider: 11/30/17 02:03 Source: patient Limitations: no limitations Nursing Notes Reviewed: Yes Vital Signs Reviewed: Yes - History of Present Illness HPI Narrative: Patient is a 42-year-old male that presents the emergency department with chest pain in the middle left side of his chest. States that it radiates down his left arm. Patient states that this is been ongoing for approximately 2 hours. Patient states that he has had shortness of breath and nausea but no diaphoresis. Patient states that he has had a previous heart attack in the past and this feels similar to his previous [place]. Patient also reports that he has had a mild cough with no sputum production. Patient denies any other symptoms at this time. His main concern is his chest pain. Pain Scale: 9 - Related Data Home Medications Medication Instructions Recorded Confirmed Canagliflozin [Invokana] 100 mg PO DAILY 11/20/15 05/19/17 Citalopram Hydrobromide [Celexa] 40 mg PO DAILY 11/20/15 05/19/17 Glimepiride [Amaryl] 4 mg PO DAILY 11/20/15 05/19/17 HYDROcodone/Acet 10/325 mg [[place] 325 mg PO DAILY 11/20/15 05/19/17 10-325 mg] Lisinopril [Zestril] 40 mg PO DAILY 11/20/15 05/19/17 Metoprolol Succinate 200 mg PO DAILY 11/20/15 05/19/17 Pravastatin Sodium [Pravachol] 80 mg PO DAILY 11/20/15 05/19/17 Amlodipine Besylate 10 mg PO DAILY 12/17/16 05/19/17 Exenatide Microspheres [Bydureon 2 mg SQ QWEEK 12/17/16 05/19/17 Pen] Metformin HCl [Metformin HCl ER] 1,000 mg PO BID 12/17/16 05/19/17 Quetiapine Fumarate [Seroquel] 25 mg PO HS 12/17/16 05/19/17 Previous Rx's Medication Instructions Recorded Albuterol Sulfate [Albuterol 2 puff IH Q6HR #1 hfa.aer.ad 11/20/15 Inhaler] Aspirin 81 mg PO DAILY #30 tab.chew 12/19/16 Hydralazine HCl 100 mg PO TID #90 tablet 12/19/16 Isosorbide MONOnitrate (24 HR) 60 mg PO DAILY #30 tab.er.24h 12/19/16 [Imdur] Albuterol Sulfate [Albuterol 2 puff IH QID #1 inhaler 05/19/17 Inhaler] Cefdinir [Omnicef] 300 mg PO BID #20 capsule 05/19/17 Suraj/Poly/HC *EAR* SOLN 4 drop RIGHT EAR QID #1 solution 05/19/17 [Cortisporin *EAR* SOLN] PredniSONE [Melody] 5 mg PO DAILY 6 Days tablet. 05/19/17 Oseltamivir [Tamiflu] 75 mg PO BID #10 capsule 08/20/17 Promethazine/Codeine 5 - 10 ml PO Q8HR PRN 8 Days #120 08/20/17 [Phenergan/Codeine] ml Allergies Allergy/AdvReac Type Severity Reaction Status Date / Time No Known Allergies Allergy Verified 08/20/17 16:29 All systems ED: reviewed and negative except as stated. Constitutional: Denies: fever, chills Cardiovascular: Reports: chest pain Respiratory: Reports: cough, dyspnea. Denies: sputum production Gastrointestinal: Reports: nausea. Denies: abdominal pain, vomiting Genitourinary: Denies: urgency, dysuria, frequency, hematuria Musculoskeletal: Denies: back pain, neck pain Neurological: Denies: headache, weakness, numbness, paresthesias Past Medical History - Past Medical History Medical history: Reports: asthma, diabetes, hyperlipidemia, hypertension Psychiatric history: Reports: other - Social History Smoking Status: Never smoker Smokeless Tobacco Status: No Alcohol use: Reports: none Drug use: Reports: none Physical Exam - General Limitations: no limitations General appearance: alert, in no apparent distress - Head Head exam: atraumatic, normocephalic - Eye Eye exam: Present: normal appearance, EOMI - Neck Neck exam: Present: normal inspection, full ROM, trachea midline - Respiratory Respiratory exam: Present: normal lung sounds bilaterally. Absent: respiratory distress, wheezes - Cardiovascular Cardiovascular exam: Present: regular rate, normal rhythm, normal heart sounds, +S1, +S2 - Abdominal Exam Abdominal exam: Present: soft, Non-Tender, normal bowel sounds - Neurological Exam Neurological exam: Present: alert, oriented X3 - Psychiatric Psychiatric exam: Present: normal affect, normal mood - Skin Skin exam: Present: warm, dry, intact Course Vital Signs Temperature 97.7 F 11/30/17 00:29 Pulse Rate 75 11/30/17 00:29 Respiratory Rate 16 11/30/17 00:29 Blood Pressure 172/96 11/30/17 00:29 O2 Sat by Pulse Oximetry 94 11/30/17 00:29 Temperature 97.7 F 11/30/17 00:29 Pulse Rate 71 11/30/17 03:01 Respiratory Rate 14 11/30/17 03:01 Blood Pressure 131/87 11/30/17 03:01 O2 Sat by Pulse Oximetry 96 11/30/17 03:01 Oxygen Delivery Oxygen Delivery Room Air Medical Decision Making - MDM Narrative Medical decision making narrative: Due the patient presents emergency Department with chest pain we will obtain basic laboratory tests including a CBC, BMP, troponin chest x-ray and EKG. Patient's laboratory testing is unremarkable other than a mildly elevated white count. Troponin was negative, chest x-ray did not show any acute cardial ulnar process. EKG was a sinus rhythm. Due to the patient's symptoms and the acute nature of his chest pain and having a previous cardiac history of [place] and this feeling similar feel that is necessary for the patient be admitted to the hospital for further evaluation and management. Patient is in agreement with admission. I called and spoke with the admitting hospitals Dr. Nielsen and he has accepted the patient to his service. Patient will be admitted to the hospital for further evaluation and management. - Medical Records Medical records reviewed: Yes I reviewed the patient's medical records. - Lab Data Lab results reviewed: Yes I reviewed the patient's lab results. Result diagrams: 11/30/17 00:41 11/30/17 00:41 Lab Results 11/30/17 11/30/17 11/30/17 Range/Units 00:41 00:41 00:41 WBC 12.3 H (4.3-11.1) K/mcL RBC 5.39 (4.19-5.50) M/mcL Hgb 16.1 (12.9-16.9) g/dL Hct 46.5 (37.5-50.1) % MCV 86.3 (83.0-100.0) fL MCH 29.9 (28.0-33.3) pg MCHC 34.6 (31.6-35.5) g/dL RDW 13.5 (11.5-14.5) % Plt Count 317 (140-400) K/mcL MPV 10.2 (9.4-12.4) fL Immature Gran % 0.3 (0-4) % Seg Neutrophils % 59.5 % Lymphocytes % 28.0 % Monocytes % 7.2 % Eosinophils % 3.8 % Basophils % 1.2 % Neutrophils # 7.3 (1.6-8.9) K/mcL Lymphocytes # 3.4 (0.6-4.6) K/mcL Monocytes # 0.9 (0.0-1.3) K/mcL Eosinophils # 0.5 (0.0-0.6) K/mcL Basophils # 0.2 (0.0-0.2) K/mcL PT 10.0 (9.4-12.1) Seconds INR 0.9 APTT 32.4 (26.0-36.0) Seconds Sodium 140 (136-145) mEq/L Potassium 3.5 (3.5-5.1) mEq/L Chloride 102 (98-107) mEq/L Carbon Dioxide 28 (23-29) mEq/L BUN 11 (6-20) mg/dL Creatinine 0.59 L (0.70-1.30) mg/dL Est GFR ( Amer) > 60 (> 60) Est GFR (Non-Af Amer) > 60 (> 60) BUN/Creatinine Ratio 19 (6-26) Glucose 165 H (70-105) mg/dL Calculated Osmolality 293 (280-300) Calcium 9.3 (8.6-10.3) mg/dL Troponin I < 0.03 (< 0.04) ng/mL - Radiology Data Radiology results reviewed: Yes I reviewed the patient's radiology results. Chest X-Ray 11/30/17 00:31 IMPRESSION: No acute disease. D/ / Alesia Joseph Cha, MD / Alesia Joseph Cha, MD Interpreting Provider: Alesia Joseph Cha, MD - EKG Data EKG #1 EKG attestation: Yes I reviewed and interpreted this EKG. EKG results narrative: EKG shows a sinus rhythm at a rate of 73 bpm, ND interval of 193, QRS duration 97, QTc of 413 with a normal axis. There is no evidence of STEMI on EKG.
[2017-11-30] MEDS ORDERED: Naloxone 0.4 MG/ML INJ IVP PRN (02:33)
[2017-11-30] MEDS ORDERED: D5% in Water 1,000 ML IVC PRN (02:34)
[2017-11-30] MEDS ORDERED: *HR* Dextrose 50 % in Water (Syg) 50 ML SYRINGE IVP PRN (02:34)
[2017-11-30] MEDS ORDERED: Dextrose Gel 15 GM/37.5 ML TUBE PO PRN ×2 (02:34)
[2017-11-30] MEDS: Nitroglycerin 0.4 MG TAB.SUBL SL PRN ×3 (02:47→02:57)
--- NOTE | 2017-11-30 02:53 | Internal Med History&Physical ---
Date of Encounter: 11/30/17 Time of Encounter: 02:51 Internal Medicine - H&P: HPI Chief complaint: chest pain Admitted From: Emergency Dept Plans for Post Hospital Care: Home History of present illness: Mr. Calhoun is a 42 year old male with history of morbid obesity, HTN, HLD, SEE not compliant with CPAP, DM, asthma who presents with sudden onset of left sided chest pain that radiates down the left arm. Constant. Was trying to sleep on the cough at the time. No aggrevating factors. No shortness of breath. No diaphoresis. Has a dry cough for a day or so. Afebrile. In the ED work up was negative including trops not elevated. WBC mildly elevated. EKG with no acute ischemic findings. Chest x-ray with nothing acute. Patient had a negative stress test about a year ago. Says he had a LHC a couple of years back with a 35 % blockage somewhere. Patient denies any fever, chills, headache, blurry vision , diaphoresis, nausea, vomiting, shortness of breath, abdominal pain, diarrhea, constipation, urinary symptoms, or neurological symptoms Past Med Surg Social Fam HX - Past Medical History Medical history: asthma, diabetes, hyperlipidemia, hypertension Psychiatric history: other - Social History Smoking Status: Never smoker Smokeless Tobacco Status: No Alcohol use: none Drug use: none - Family History Father Living Status: Still Living Hx Family Cardiac Disorders: Yes (VT ) Mother Living Status: Still Living Hx Family Endocrine Disorder: Yes (DM) Internal Medicine - H&P: Meds Albuterol Sulfate [Albuterol Inhaler] 2 puff IH Q6HR #1 hfa.aer.ad 11/20/15 [Rx] Canagliflozin [Invokana] 100 mg PO DAILY 11/20/15 [History] Citalopram Hydrobromide [Celexa] 40 mg PO DAILY 11/20/15 [History] Glimepiride [Amaryl] 4 mg PO DAILY 11/20/15 [History] HYDROcodone/Acet 10/325 mg [[place] 10-325 mg] 325 mg PO DAILY 11/20/15 [History] Lisinopril [Zestril] 40 mg PO DAILY 11/20/15 [History] Metoprolol Succinate 200 mg PO DAILY 11/20/15 [History] Pravastatin Sodium [Pravachol] 80 mg PO DAILY 11/20/15 [History] Amlodipine Besylate 10 mg PO DAILY 12/17/16 [History] Exenatide Microspheres [Bydureon Pen] 2 mg SQ QWEEK 12/17/16 [History] Metformin HCl [Metformin HCl ER] 1,000 mg PO BID 12/17/16 [History] Quetiapine Fumarate [Seroquel] 25 mg PO HS 12/17/16 [History] Aspirin 81 mg PO DAILY #30 tab.chew 12/19/16 [Rx] Hydralazine HCl 100 mg PO TID #90 tablet 12/19/16 [Rx] Isosorbide MONOnitrate (24 HR) [Imdur] 60 mg PO DAILY #30 tab.er.24h 12/19/16 [ Rx] Albuterol Sulfate [Albuterol Inhaler] 2 puff IH QID #1 inhaler 05/19/17 [Rx] Cefdinir [Omnicef] 300 mg PO BID #20 capsule 05/19/17 [Rx] Suraj/Poly/HC *EAR* SOLN [Cortisporin *EAR* SOLN] 4 drop RIGHT EAR QID #1 solution 05/19/17 [Rx] PredniSONE [Melody] 5 mg PO DAILY 6 Days tablet. 05/19/17 [Rx] Oseltamivir [Tamiflu] 75 mg PO BID #10 capsule 08/20/17 [Rx] Promethazine/Codeine [Phenergan/Codeine] 5 - 10 ml PO Q8HR PRN 8 Days #120 ml [Rx] 3 Allergy/AdvReac Type Severity Reaction Status Date / Time No Known Allergies Allergy Verified 08/20/17 16:29 All Systems PM: A 10-system review of systems was performed and is negative for pertinent findings except as documented above in the HPI. Review of systems: All systems reviewed are negative except as mentioned above - Constitutional Vitals: Temp Pulse Resp BP Pulse Ox 97.7 F 72 16 142/99 96 11/30/17 00:29 11/30/17 02:22 11/30/17 02:22 11/30/17 02:22 11/30/17 02:22 Exam: GEN: NAD HEENT: AT, NC, No cyanosis, oral mucosa is moist, No JVD Lymphatics: No lymphadenoapthy Eyes: Extrocular muscles intact, anicteric CVS:RRR. S1, S2, No m/r/g RESP: CTAB ABD: Soft, NT, ND, +BS EXT: No edema, No rashes, 2+ DP NEURO: Nonfocal, CN II-XII intact, No focal motor or sensory deficits Psych: Cooperative, Not anxious or depressed Internal Med - H&P Results - Labs CBC & Chem 7: 11/30/17 00:41 11/30/17 00:41 Labs: Short CBC 11/30/17 Range/Units 00:41 WBC 12.3 H (4.3-11.1) K/mcL Hgb 16.1 (12.9-16.9) g/dL Hct 46.5 (37.5-50.1) % Plt Count 317 (140-400) K/mcL Neutrophils # 7.3 (1.6-8.9) K/mcL BMP 11/30/17 00:41 Sodium 140 Potassium 3.5 Chloride 102 Carbon Dioxide 28 BUN 11 Creatinine 0.59 L Glucose 165 H Calcium 9.3 Cardiac Enzymes 11/30/17 Range/Units 00:41 Troponin I < 0.03 (< 0.04) ng/mL - Impressions ITS Impressions Chest X-Ray 11/30/17 00:31 IMPRESSION: No acute disease. D/ / Alesia Joseph Cha, MD / Alesia Joseph Cha, MD Interpreting Provider: Alesia Joseph Cha, MD - Assessment and plan (1) Chest pain Current Visit: Yes Status: Acute Assessment and plan: Will admit to tele. Trend cardiac enzymes. Stress test in the am. check A1c, lipid panel. Patient continues to have chest pain/pressure and has not been given SL nitro yet. The ED staff was asked to order SL nitroglycerin PRN. Aspirin given in the ED. Qualifiers: Chest pain type: unspecified Qualified Code(s): R07.9 - Chest pain, unspecified (2) Leukocytosis Current Visit: Yes Status: Acute Assessment and plan: This is mild elevation. Possibly reactive. Afebrile. Has a mild dry cough. ?? URI. Will monitor. Treat conservatively Qualifiers: Leukocytosis type: unspecified Qualified Code(s): D72.829 - Elevated white blood cell count, unspecified (3) HTN (hypertension) Current Visit: Yes Status: Acute Assessment and plan: Resume home antihypertensives Qualifiers: Hypertension type: essential hypertension Qualified Code(s): I10 - Essential (primary) hypertension (4) HLD (hyperlipidemia) Current Visit: Yes Status: Acute Assessment and plan: c/w home meds Qualifiers: Hyperlipidemia type: unspecified Qualified Code(s): E78.5 - Hyperlipidemia , unspecified (5) Diabetes mellitus Current Visit: No Status: Chronic Assessment and plan: Insulin sliding scale. Accucheks. Qualifiers: Diabetes mellitus type: type 2 Diabetes mellitus senior living insulin use: without termite exterminator use Diabetes mellitus complication status: without complication Qualified Code(s): E11.9 - Type 2 diabetes mellitus without complications (6) Morbid obesity with BMI of 45.0-49.9, adult Current Visit: No Status: Chronic Assessment and plan: counseled (7) DVT prophylaxis Current Visit: No Status: Acute Assessment and plan: Heparin SQ - Time Spent With Patient Total time spent is greater than 50% in coordination of care (as documented) at patient's floor/unit and/or counseling patient:
--- NOTE | 2017-11-30 03:20 | Emergency Department Note ---
Disposition Clinical Impression: Chest pain, Shortness of breath Disposition: Admitted As Inpatient Condition: Good General Adult HPI - General Chief complaint: ED Chest Pain Stated complaint: chest pain Time Seen by Provider: 11/30/17 02:03 Source: patient Limitations: no limitations Nursing Notes Reviewed: Yes Vital Signs Reviewed: Yes - History of Present Illness Pain Scale: 1 - Related Data Home Medications Medication Instructions Recorded Confirmed Canagliflozin [Invokana] 100 mg PO DAILY 11/20/15 05/19/17 Citalopram Hydrobromide [Celexa] 40 mg PO DAILY 11/20/15 05/19/17 Glimepiride [Amaryl] 4 mg PO DAILY 11/20/15 05/19/17 HYDROcodone/Acet 10/325 mg [[place] 325 mg PO DAILY 11/20/15 05/19/17 10-325 mg] Lisinopril [Zestril] 40 mg PO DAILY 11/20/15 05/19/17 Metoprolol Succinate 200 mg PO DAILY 11/20/15 05/19/17 Pravastatin Sodium [Pravachol] 80 mg PO DAILY 11/20/15 05/19/17 Amlodipine Besylate 10 mg PO DAILY 12/17/16 05/19/17 Exenatide Microspheres [Bydureon 2 mg SQ QWEEK 12/17/16 05/19/17 Pen] Metformin HCl [Metformin HCl ER] 1,000 mg PO BID 12/17/16 05/19/17 Quetiapine Fumarate [Seroquel] 25 mg PO HS 12/17/16 05/19/17 Previous Rx's Medication Instructions Recorded Albuterol Sulfate [Albuterol 2 puff IH Q6HR #1 hfa.aer.ad 11/20/15 Inhaler] Aspirin 81 mg PO DAILY #30 tab.chew 12/19/16 Hydralazine HCl 100 mg PO TID #90 tablet 12/19/16 Isosorbide MONOnitrate (24 HR) 60 mg PO DAILY #30 tab.er.24h 12/19/16 [Imdur] Albuterol Sulfate [Albuterol 2 puff IH QID #1 inhaler 05/19/17 Inhaler] Cefdinir [Omnicef] 300 mg PO BID #20 capsule 05/19/17 Suraj/Poly/HC *EAR* SOLN 4 drop RIGHT EAR QID #1 solution 05/19/17 [Cortisporin *EAR* SOLN] PredniSONE [Melody] 5 mg PO DAILY 6 Days tablet. 05/19/17 Oseltamivir [Tamiflu] 75 mg PO BID #10 capsule 08/20/17 Promethazine/Codeine 5 - 10 ml PO Q8HR PRN 8 Days #120 08/20/17 [Phenergan/Codeine] ml Allergies Allergy/AdvReac Type Severity Reaction Status Date / Time No Known Allergies Allergy Verified 08/20/17 16:29 Constitutional: Denies: fever, chills Cardiovascular: Reports: chest pain Respiratory: Reports: cough, dyspnea. Denies: sputum production Gastrointestinal: Reports: nausea. Denies: abdominal pain, vomiting Genitourinary: Denies: urgency, dysuria, frequency, hematuria Musculoskeletal: Denies: back pain, neck pain Neurological: Denies: headache, weakness, numbness, paresthesias Past Medical History - Past Medical History Medical history: Reports: asthma, diabetes, hyperlipidemia, hypertension Psychiatric history: Reports: other - Social History Smoking Status: Never smoker Smokeless Tobacco Status: No Alcohol use: Reports: none Drug use: Reports: none Physical Exam - General Limitations: no limitations General appearance: alert, in no apparent distress Course Vital Signs Temperature 97.7 F 11/30/17 00:29 Pulse Rate 75 11/30/17 00:29 Respiratory Rate 16 11/30/17 00:29 Blood Pressure 172/96 11/30/17 00:29 O2 Sat by Pulse Oximetry 94 11/30/17 00:29 Temperature 97.7 F 11/30/17 00:29 Pulse Rate 71 11/30/17 03:01 Respiratory Rate 14 11/30/17 03:01 Blood Pressure 131/87 11/30/17 03:01 O2 Sat by Pulse Oximetry 96 11/30/17 03:01 Oxygen Delivery Oxygen Delivery Room Air Medical Decision Making - Lab Data Result diagrams: 11/30/17 00:41 11/30/17 00:41 Lab Results 11/30/17 11/30/17 11/30/17 Range/Units 00:41 00:41 00:41 WBC 12.3 H (4.3-11.1) K/mcL RBC 5.39 (4.19-5.50) M/mcL Hgb 16.1 (12.9-16.9) g/dL Hct 46.5 (37.5-50.1) % MCV 86.3 (83.0-100.0) fL MCH 29.9 (28.0-33.3) pg MCHC 34.6 (31.6-35.5) g/dL RDW 13.5 (11.5-14.5) % Plt Count 317 (140-400) K/mcL MPV 10.2 (9.4-12.4) fL Immature Gran % 0.3 (0-4) % Seg Neutrophils % 59.5 % Lymphocytes % 28.0 % Monocytes % 7.2 % Eosinophils % 3.8 % Basophils % 1.2 % Neutrophils # 7.3 (1.6-8.9) K/mcL Lymphocytes # 3.4 (0.6-4.6) K/mcL Monocytes # 0.9 (0.0-1.3) K/mcL Eosinophils # 0.5 (0.0-0.6) K/mcL Basophils # 0.2 (0.0-0.2) K/mcL PT 10.0 (9.4-12.1) Seconds INR 0.9 APTT 32.4 (26.0-36.0) Seconds Sodium 140 (136-145) mEq/L Potassium 3.5 (3.5-5.1) mEq/L Chloride 102 (98-107) mEq/L Carbon Dioxide 28 (23-29) mEq/L BUN 11 (6-20) mg/dL Creatinine 0.59 L (0.70-1.30) mg/dL Est GFR ( Amer) > 60 (> 60) Est GFR (Non-Af Amer) > 60 (> 60) BUN/Creatinine Ratio 19 (6-26) Glucose 165 H (70-105) mg/dL Calculated Osmolality 293 (280-300) Calcium 9.3 (8.6-10.3) mg/dL Troponin I < 0.03 (< 0.04) ng/mL Attestation Statement - Attestation Attestation: I, Mahendra Doss MD, personally evaluated this patient and discussed their management with the resident physician. I reviewed the resident's note and agree with the documented findings, medical decision making, and plan of care. 42-year-old male presents to the emergency department with a complaint of left sided chest pain which started about 11 PM this evening. Pain radiated to the left arm. He describes it as a dull pressure heaviness in his chest. He does have a prior history of an [place] and states this feels similar. Some nausea with the episode but no vomiting. No diaphoresis. Some shortness of breath. On examination patient is a well-developed obese male in no acute distress. He is alert and oriented 3. There is no cyanosis or diaphoresis. Chest is nontender to palpation. Breath sounds are clear and equal bilaterally. Heart regular rate and rhythm. Abdomen is soft and nontender with normal bowel sounds. Labs reviewed. Troponin normal. Chest x-ray negative. EKG shows a normal sinus rhythm with ventricular rate is 73. No acute ST segment elevation or depression. The hospitalist, Dr. Nielsen, was consulted and accepted admission of the patient.
[2017-11-30] MEDS: Acetaminophen 325 MG TABLET PO PRN ×2 (03:51→22:27)
[2017-11-30] MEDS: *HR* Heparin 5,000 UNIT/ML VIAL SQ SCH ×3 (05:28→22:27)
[2017-11-30] MEDS: Insulin LISPRO 300 UNITS/3 ML VIAL SQ SCH ×4 (05:30→22:30)
[2017-11-30 07:42] LABS: Troponin I < 0.03 ng/mL (< 0.04)
[2017-11-30 07:43] LABS: BUN/Creatinine Ratio 34 (6-26); Blood Urea Nitrogen 15 mg/dL (6-20); Calcium 8.8 mg/dL (8.6-10.3); Carbon Dioxide 28 mEq/L (23-29); Chloride 103 mEq/L (98-107); Chol/HDL Ratio 4.2 (0-4.9); Cholesterol 139 mg/dL (< 200); Glucose 109 mg/dL (70-105); HDL Cholesterol 33 mg/dL (40-59); LDL Cholesterol,Calculated 80 mg/dL (0-99); Osmolality,Calculated 295 (280-300); Potassium 3.2 mEq/L (3.5-5.1); Sodium 142 mEq/L (136-145); Triglycerides 132 mg/dL (< 150); eGFR For African Americans > 60 (> 60); eGFR For Non-African Americans > 60 (> 60)
[2017-11-30 07:52] LABS: Basophils # 0.2 K/mcL (0.0-0.2); Basophils % 1.2 %; Eosinophils # 0.6 K/mcL (0.0-0.6); Eosinophils % 4.7 %; Hematocrit 44.6 % (37.5-50.1); Immature Granulocytes % 0.3 % (0-4); Lymphocytes # 3.7 K/mcL (0.6-4.6); Lymphocytes % 29.4 %; Mean Corpuscular HGB Conc 33.6 g/dL (31.6-35.5); Mean Corpuscular Hemoglobin 29.4 pg (28.0-33.3); Mean Corpuscular Volume 87.3 fL (83.0-100.0); Mean Platelet Volume 10.6 fL (9.4-12.4); Monocytes # 0.9 K/mcL (0.0-1.3); Monocytes % 7.1 %; Neutrophils # 7.3 K/mcL (1.6-8.9); Platelet Count 305 K/mcL (140-400); Red Blood Count 5.11 M/mcL (4.19-5.50); Red Cell Distribution Width 13.5 % (11.5-14.5); Segmented Neutrophils % 57.3 %
[2017-11-30] MEDS ORDERED: Regadenoson 0.4 MG/5 ML SYRINGE IVP ONE (09:44)
[2017-12-01] MEDS: *HR* Heparin 5,000 UNIT/ML VIAL SQ SCH ×2 (06:41→12:55)
[2017-12-01] MEDS: Insulin LISPRO 300 UNITS/3 ML VIAL SQ SCH ×3 (06:41→17:14)
[2017-12-01 15:51] VITALS: BP 175/94
--- NOTE | 2017-12-01 17:45 | Discharge Summary ---
- NOTES TO OUTPATIENT PROVIDER Notes to Outpatient Provider: The patient was admitted with atypical chest pain. Nuclear medicine stress test was negative for ischemia. He will start working, tomorrow. Date of Encounter: 12/01/17 Time of Encounter: 17:42 - Discharge Diagnosis (1) Chest pain Status: Acute Qualifiers: Chest pain type: unspecified Qualified Code(s): R07.9 - Chest pain, unspecified (2) T2DM (type 2 diabetes mellitus) Status: Chronic Qualifiers: Diabetes mellitus group home insulin use: without group home use Diabetes mellitus complication status: without complication Qualified Code(s): E11.9 - Type 2 diabetes mellitus without complications (3) HTN (hypertension) Status: Chronic Qualifiers: Hypertension type: essential hypertension Qualified Code(s): I10 - Essential (primary) hypertension (4) Hyperlipidemia Status: Chronic (5) Morbid obesity with BMI of 40.0-44.9, adult Status: Chronic Hospital course: Mr. Calhoun is a 42 year old male Discharge discussed with: patient, family - Time Spent with Patient Total time spent providing and/or coordinating discharge services: Less than 30 minutes - Discharge Medications Home Medications: Canagliflozin [Invokana] 100 mg PO DAILY 11/20/15 [History] Citalopram Hydrobromide [Celexa] 40 mg PO DAILY 11/20/15 [History] Glimepiride [Amaryl] 4 mg PO DAILY 11/20/15 [History] HYDROcodone/Acet 10/325 mg [[place] 10-325 mg] 1 tab PO TID PRN 11/20/15 [History] Lisinopril [Zestril] 40 mg PO DAILY 11/20/15 [History] Pravastatin Sodium [Pravachol] 80 mg PO DAILY 11/20/15 [History] Amlodipine Besylate 10 mg PO DAILY 12/17/16 [History] Exenatide Microspheres [Bydureon Pen] 2 mg SQ QWEEK 12/17/16 [History] Metformin HCl [Metformin HCl ER] 1,000 mg PO BID 12/17/16 [History] Quetiapine Fumarate [Seroquel] 25 mg PO HS 12/17/16 [History] Aspirin 81 mg PO DAILY #30 tab.chew 12/19/16 [Rx] Isosorbide MONOnitrate (24 HR) [Imdur] 60 mg PO DAILY #30 tab.er.24h 12/19/16 [ Rx] Albuterol Sulfate [Albuterol Inhaler] 2 puff IH QID #1 inhaler 05/19/17 [Rx] Metoprolol Succinate [Toprol Xl] 100 mg PO BID 11/30/17 [History] Triamterene/HCTZ 37.5/25mg [Dyazide] 1 tab PO DAILY 11/30/17 [History] hydrALAZINE [HydrALAZINE] 25 mg PO TID 11/30/17 [History] Allergies/Adverse Reactions: 3 Allergy/AdvReac Type Severity Reaction Status Date / Time No Known Allergies Allergy Verified 11/30/17 14:57 Date of admission: 11/30/17 02:52 Primary care physician: Kimo Qiu MD Discharging clinician: Jaden Thomason Anticipated date of discharge: 12/01/17 - Constitutional Vitals: Temp Pulse Resp BP Pulse Ox 98.0 F 74 21 175/94 96 12/01/17 15:49 12/01/17 15:49 12/01/17 15:49 12/01/17 15:49 12/01/17 15:49 General appearance: Present: A&O X 3, pleasant, no acute distress, answers questions appropriately - Respiratory Respiratory exam: Present: CTAB. Absent: rales, rhonchi, wheezes Additional comments: He is morbidly obese. His BMI is 42. - Cardiovascular Cardiovascular exam: Present: RRR, +S1, +S2. Absent: diastolic murmur, gallop, rubs, systolic murmur - GI/Abdominal GI/Abdominal exam: Present: normal bowel sounds, soft Additional comments: The patient is morbidly obese. - Patient Status Disposition: Home, Self-Care Condition: Good Functional capacity at discharge: independent ambulation Overall status at discharge: patient is back to baseline - Discharge Instructions Follow Up With: Kimo Qiu MD [Primary Care Provider] - Additional Instructions: The patient got sick leave for yesterday and today. He will resume working tomorrow. - Diet and Activity Activity: resume usual activities as tolerated - VTE Deep Vein Thrombosis/Pulmonary Embolism Present on Admission: No
[2017-12-03 09:30] LABS: Estimated Average Glucose 169 mg/dl; Hemoglobin A1C 7.5 %
--- NOTE | 2017-12-03 11:48 | Electrocardiograph Report ---
[place] [id number] Test Date: 2017-11-30 Pat Name: Noe Calhoun Department: 104 Room: [facility] Gender: M Cleaning Specialist: : [id number] Requested By: Mahendra Doss Order Number: [id number] Reading MD: Marco Sanabria Measurements Intervals [place] Rate: 73 P: 32 DE: 193 QRS: -5 QRSD: 97 T: 30 QT: 388 QTc: 413 Interpretive Statements SINUS RHYTHM POSSIBLE LVH, CONSIDER NORMAL VARIANT NONSPECIFIC T-WAVE ABNORMALITY Electronically Signed On 12-03-2017 11:46:53 EDT by Marco Sanabria
== END 2017-12-01 18:27 | disposition home or self-care (01) ==
LOC: 3NENU 00:26 → EMEROO 00:26 → SUATTDRO 02:52 → 3NENU 03:19
PROVIDERS: ADMIT Internal Medicine; ATTEND Internal Medicine

== ENCOUNTER 2020-02-08 11:10 | Inpatient (IN) ==
[2020-02-08] MEDS ORDERED: Aspirin 325 MG TABLET PO ONE (11:30)
[2020-02-08 11:45] LABS: Basophils # 0.1 K/mcL (0.0-0.2); Basophils % 0.9 %; Eosinophils # 0.1 K/mcL (0.0-0.6); Eosinophils % 0.8 %; Hematocrit 50.2 % (37.5-50.1); Hemoglobin 15.9 g/dL (12.9-16.9); Immature Granulocytes % 0.5 % (0-4); Lymphocytes # 1.3 K/mcL (0.6-4.6); Lymphocytes % 10.1 %; Mean Corpuscular HGB Conc 31.7 g/dL (31.6-35.5); Mean Corpuscular Hemoglobin 28.4 pg (28.0-33.3); Mean Corpuscular Volume 89.8 fL (83.0-100.0); Mean Platelet Volume 10.8 fL (9.4-12.4); Monocytes # 0.8 K/mcL (0.0-1.3); Neutrophils # 10.8 K/mcL (1.6-8.9); Platelet Count 302 K/mcL (140-400); Red Blood Count 5.59 M/mcL (4.19-5.50); Red Cell Distribution Width 13.9 % (11.5-14.5); Segmented Neutrophils % 81.7 %; White Blood Count 13.3 K/mcL (4.3-11.1)
[2020-02-08 11:49] LABS: Activated Partial Thrombo Time 67.3 Seconds (26.0-36.0)
[2020-02-08 12:02] LABS: BUN/Creatinine Ratio 17 (6-26); Blood Urea Nitrogen 12 mg/dL (6-20); Carbon Dioxide 28 mEq/L (23-29); Chloride 101 mEq/L (98-107); Glucose 266 mg/dL (70-105); Osmolality,Calculated 295 (280-300); Potassium 3.8 mEq/L (3.5-5.1); Sodium 138 mEq/L (136-145); eGFR For African Americans > 60 (> 60); eGFR For Non-African Americans > 60 (> 60)
[2020-02-08 12:07] LABS: INR 6.4; Prothrombin Time 72.4 Seconds (9.4-12.1)
[2020-02-08 12:13] LABS: Troponin I 0.07 ng/mL (< 0.04)
[2020-02-08] MEDS: DilTIAZem 50 MG/50 ML IV.SOLN IVC SCH ×3 (12:39→20:15)
[2020-02-08 12:57] LABS: Adenovirus Not Detected (Not Detect); Coronavirus 229E Not Detected (Not Detect); Coronavirus HKU1 Not Detected (Not Detect); Coronavirus NL63 Not Detected (Not Detect); Coronavirus OC43 Not Detected (Not Detect); Human Metapneumovirus Not Detected (Not Detect)
[2020-02-08 12:58] LABS: Bordetella Pertussis Not Detected (Not Detect); Chlamydophila pneumoniae Not Detected (Not Detect); Human Rhinovirus/Enterovirus Not Detected (Not Detect); Influenza A Subtype 2009 H1 Not Detected (Not Detect); Influenza B Not Detected (Not Detect); Mycoplasma pneumoniae Not Detected (Not Detect); Parainfluenza Virus 1 Not Detected (Not Detect); Parainfluenza Virus 2 Not Detected (Not Detect); Parainfluenza Virus 3 Not Detected (Not Detect); Parainfluenza Virus 4 Not Detected (Not Detect); Respiratory Syncytial Virus Not Detected (Not Detect)
[2020-02-08] MEDS: Metoprolol XL (24 HR) Succ 50 MG TAB.ER.24H PO SCH ×2 (15:18→20:14)
[2020-02-08] MEDS ORDERED: Naloxone 0.4 MG/ML INJ IVP PRN (15:22)
[2020-02-08] MEDS ORDERED: Ondansetron ODT 4 MG TAB.RAPDIS SL PRN (15:22)
[2020-02-08] MEDS ORDERED: Furosemide 40 MG/4 ML VIAL IVP ONE (15:49)
[2020-02-08] MEDS ORDERED: D5% in Water 1,000 ML IVC PRN (16:37)
[2020-02-08] MEDS ORDERED: *HR* Dextrose 50 % in Water (Vial) 50 ML VIAL IVP PRN (16:37)
[2020-02-08] MEDS ORDERED: Dextrose Gel 15 GM/37.5 ML TUBE PO PRN ×2 (16:37)
[2020-02-08] MEDS ORDERED: Amiodarone Premix 150 MG/100 ML BAG IVPB ONE (16:55)
[2020-02-08] MEDS: Insulin LISPRO 300 UNITS/3 ML VIAL SQ SCH (17:11)
[2020-02-08] MEDS ORDERED: Amiodarone Premix 360 MG/200 ML BAG IVC ONE (17:30)
[2020-02-08] MEDS ORDERED: Potassium Chloride 20 MEQ, Lidocaine 1% 2 ML in 0.9 % Sodium Chloride 250 ML IVPB ONE (17:33)
[2020-02-08] MEDS: Gabapentin 300 MG CAPSULE PO SCH (20:14)
[2020-02-08] MEDS: hydrALAZINE 25 MG TABLET PO SCH (20:14)
[2020-02-08] MEDS: *HR* OxyCODONE/APAP 7.5/325 TABLET PO PRN (20:38)
[2020-02-08] MEDS ORDERED: Insulin LISPRO 300 UNITS/3 ML VIAL SQ SCH (21:00)
[2020-02-08] MEDS: Amiodarone Premix 360 MG/200 ML BAG IVC SCH (23:07)
[2020-02-09 00:44] LABS: Basophils % 0.4 %; Hematocrit 49.5 % (37.5-50.1); Immature Granulocytes % 0.6 % (0-4); Lymphocytes # 0.9 K/mcL (0.6-4.6); Lymphocytes % 8.3 %; Mean Corpuscular HGB Conc 32.3 g/dL (31.6-35.5); Mean Corpuscular Hemoglobin 29.1 pg (28.0-33.3); Mean Platelet Volume 10.9 fL (9.4-12.4); Monocytes # 0.4 K/mcL (0.0-1.3); Monocytes % 3.7 %; Neutrophils # 9.2 K/mcL (1.6-8.9); Platelet Count 321 K/mcL (140-400); Red Cell Distribution Width 13.9 % (11.5-14.5); White Blood Count 10.5 K/mcL (4.3-11.1)
[2020-02-09 00:45] LABS: Activated Partial Thrombo Time 69.8 Seconds (26.0-36.0)
[2020-02-09 00:49] LABS: INR 5.2; Prothrombin Time 59.4 Seconds (9.4-12.1)
[2020-02-09 00:57] LABS: BUN/Creatinine Ratio 22 (6-26); Blood Urea Nitrogen 17 mg/dL (6-20); Carbon Dioxide 24 mEq/L (23-29); Chloride 98 mEq/L (98-107); Glucose 389 mg/dL (70-105); Osmolality,Calculated 296 (280-300); Potassium 3.9 mEq/L (3.5-5.1); Sodium 134 mEq/L (136-145); eGFR For African Americans > 60 (> 60); eGFR For Non-African Americans > 60 (> 60)
[2020-02-09] MEDS ORDERED: *HR* Labetalol 20 MG/4 ML SYRINGE IVP ONE (02:57)
[2020-02-09] MEDS: hydrALAZINE 25 MG TABLET PO SCH ×3 (06:47→19:48)
[2020-02-09] MEDS: Metoprolol XL (24 HR) Succ 50 MG TAB.ER.24H PO SCH ×2 (06:47→19:48)
[2020-02-09] MEDS: Magnesium Oxide 400 MG TABLET PO SCH (07:38)
[2020-02-09] MEDS: Aspirin 81 MG TAB.CHEW PO SCH (07:38)
[2020-02-09] MEDS: Gabapentin 300 MG CAPSULE PO SCH ×3 (07:38→19:48)
[2020-02-09] MEDS: lisinopriL 20 MG TABLET PO SCH (07:38)
[2020-02-09] MEDS: Insulin LISPRO 300 UNITS/3 ML VIAL SQ SCH ×3 (07:41→16:49)
[2020-02-09] MEDS ORDERED: Perflutren Lipid Microsphere 1.3 ML in 0.9 % Sodium Chloride 8.7 ML IVP PRN (10:52)
[2020-02-09] MEDS: Furosemide 40 MG/4 ML VIAL IVP SCH ×2 (11:26→19:49)
[2020-02-09] MEDS ORDERED: *HR* Dextrose 50 % in Water (Vial) 50 ML VIAL IVP PRN (12:01)
[2020-02-09] MEDS ORDERED: Dextrose Gel 15 GM/37.5 ML TUBE PO PRN ×2 (12:01)
[2020-02-09] MEDS ORDERED: D5% in Water 1,000 ML IVC PRN (12:01)
[2020-02-09] MEDS: Insulin DETEMIR 100 UNIT/ML X5UNITS SQ SCH ×2 (13:00→19:52)
[2020-02-09] MEDS: Gabapentin 100 MG CAPSULE PO SCH (19:48)
[2020-02-09] MEDS: *HR* OxyCODONE/APAP 7.5/325 TABLET PO PRN (19:48)
[2020-02-09] MEDS: *HR* Amiodarone 200 MG TABLET PO SCH (19:49)
[2020-02-10 02:34] LABS: Basophils # 0.1 K/mcL (0.0-0.2); Basophils % 0.6 %; Eosinophils # 0.1 K/mcL (0.0-0.6); Eosinophils % 0.3 %; Hematocrit 47.1 % (37.5-50.1); Hemoglobin 14.8 g/dL (12.9-16.9); Immature Granulocytes % 0.5 % (0-4); Lymphocytes # 2.3 K/mcL (0.6-4.6); Lymphocytes % 14.6 %; Mean Corpuscular HGB Conc 31.4 g/dL (31.6-35.5); Mean Corpuscular Hemoglobin 29.3 pg (28.0-33.3); Mean Corpuscular Volume 93.3 fL (83.0-100.0); Mean Platelet Volume 11.3 fL (9.4-12.4); Monocytes # 1.2 K/mcL (0.0-1.3); Monocytes % 7.4 %; Neutrophils # 12.3 K/mcL (1.6-8.9); Platelet Count 368 K/mcL (140-400); Red Blood Count 5.05 M/mcL (4.19-5.50); Red Cell Distribution Width 14.5 % (11.5-14.5); Segmented Neutrophils % 76.6 %
[2020-02-10 02:50] LABS: INR 4.5; Prothrombin Time 51.3 Seconds (9.4-12.1)
[2020-02-10 02:53] LABS: BUN/Creatinine Ratio 33 (6-26); Blood Urea Nitrogen 42 mg/dL (6-20); Calcium 9.4 mg/dL (8.6-10.3); Carbon Dioxide 30 mEq/L (23-29); Chloride 97 mEq/L (98-107); Glucose 345 mg/dL (70-105); Magnesium 2.2 mg/dL (1.6-2.6); Osmolality,Calculated 304 (280-300); Potassium 3.8 mEq/L (3.5-5.1); Sodium 135 mEq/L (136-145); eGFR For African Americans > 60 (> 60); eGFR For Non-African Americans > 60 (> 60)
[2020-02-10] MEDS: Amiodarone Premix 360 MG/200 ML BAG IVC SCH (05:46)
[2020-02-10] MEDS: Insulin LISPRO 300 UNITS/3 ML VIAL SQ SCH ×5 (08:10→17:18)
[2020-02-10] MEDS: Insulin DETEMIR 100 UNIT/ML X5UNITS SQ SCH ×2 (08:10→20:15)
[2020-02-10] MEDS: hydrALAZINE 25 MG TABLET PO SCH ×3 (08:11→20:14)
[2020-02-10] MEDS: *HR* Amiodarone 200 MG TABLET PO SCH ×2 (08:11→20:15)
[2020-02-10] MEDS: lisinopriL 20 MG TABLET PO SCH (08:11)
[2020-02-10] MEDS: Magnesium Oxide 400 MG TABLET PO SCH (08:11)
[2020-02-10] MEDS: Gabapentin 100 MG CAPSULE PO SCH ×2 (08:11→20:14)
[2020-02-10] MEDS: Gabapentin 300 MG CAPSULE PO SCH ×3 (08:11→20:13)
[2020-02-10] MEDS: Aspirin 81 MG TAB.CHEW PO SCH (08:11)
[2020-02-10 11:22] LABS: Estimated Average Glucose 266 mg/dl
[2020-02-10] MEDS: Metoprolol XL (24 HR) Succ 50 MG TAB.ER.24H PO SCH ×3 (12:15→20:15)
[2020-02-10] MEDS: *HR* OxyCODONE/APAP 7.5/325 TABLET PO PRN (20:14)
[2020-02-11] MEDS: Amiodarone Premix 360 MG/200 ML BAG IVC SCH (01:13)
[2020-02-11 05:58] LABS: Basophils # 0.1 K/mcL (0.0-0.2); Eosinophils # 0.3 K/mcL (0.0-0.6); Eosinophils % 2.8 %; Hematocrit 46.8 % (37.5-50.1); Hemoglobin 14.4 g/dL (12.9-16.9); Immature Granulocytes % 0.3 % (0-4); Lymphocytes # 2.6 K/mcL (0.6-4.6); Lymphocytes % 23.4 %; Mean Corpuscular HGB Conc 30.8 g/dL (31.6-35.5); Mean Corpuscular Hemoglobin 27.9 pg (28.0-33.3); Mean Corpuscular Volume 90.7 fL (83.0-100.0); Monocytes # 0.9 K/mcL (0.0-1.3); Monocytes % 7.9 %; Neutrophils # 7.1 K/mcL (1.6-8.9); Platelet Count 346 K/mcL (140-400); Red Blood Count 5.16 M/mcL (4.19-5.50); Red Cell Distribution Width 14.4 % (11.5-14.5); Segmented Neutrophils % 64.6 %; White Blood Count 10.9 K/mcL (4.3-11.1)
[2020-02-11 06:16] LABS: BUN/Creatinine Ratio 41 (6-26); Blood Urea Nitrogen 38 mg/dL (6-20); Calcium 9.3 mg/dL (8.6-10.3); Carbon Dioxide 30 mEq/L (23-29); Chloride 99 mEq/L (98-107); Glucose 262 mg/dL (70-105); Magnesium 1.9 mg/dL (1.6-2.6); Osmolality,Calculated 300 (280-300); Potassium 3.6 mEq/L (3.5-5.1); Sodium 136 mEq/L (136-145); eGFR For African Americans > 60 (> 60); eGFR For Non-African Americans > 60 (> 60)
[2020-02-11 06:27] VITALS: BP 142/88
[2020-02-11] MEDS: Gabapentin 100 MG CAPSULE PO SCH (08:14)
[2020-02-11] MEDS: hydrALAZINE 25 MG TABLET PO SCH (08:14)
[2020-02-11] MEDS: Gabapentin 300 MG CAPSULE PO SCH (08:14)
[2020-02-11] MEDS: Magnesium Oxide 400 MG TABLET PO SCH (08:15)
[2020-02-11] MEDS: Metoprolol XL (24 HR) Succ 50 MG TAB.ER.24H PO SCH (08:15)
[2020-02-11] MEDS: lisinopriL 20 MG TABLET PO SCH (08:15)
[2020-02-11] MEDS: *HR* Amiodarone 200 MG TABLET PO SCH (08:15)
[2020-02-11] MEDS: Aspirin 81 MG TAB.CHEW PO SCH (08:16)
[2020-02-11] MEDS: Insulin LISPRO 300 UNITS/3 ML VIAL SQ SCH ×4 (08:19→12:12)
[2020-02-11 08:23] LABS: INR 2.4
[2020-02-11] MEDS: Insulin DETEMIR 100 UNIT/ML X5UNITS SQ SCH (08:23)
== END 2020-02-11 12:35 | disposition home or self-care (01) | DRG 308 ==
LOC: 2ANU 11:10 → EMEROOARM 11:10 → SUATTDRO 15:22 → 2NNU 15:45 → SUATTDRO 02-09 14:10
PROVIDERS: ADMIT Family Medicine; ATTEND Internal Medicine

== ENCOUNTER 2020-05-26 07:59 | Inpatient (IN) ==
[2020-05-26] MEDS ORDERED: Naloxone 0.4 MG/ML INJ IVP PRN (10:14)
[2020-05-26 11:15] LABS: VBG HCO3 36 mEq/L (21-27); VBG PCO2 55 mmHg (41-51); VBG PH 7.42 pH Units (7.32-7.42); VBG PO2 179 mmHg (25-50)
[2020-05-26] MEDS ORDERED: Dextrose Gel 15 GM/37.5 ML TUBE PO PRN ×2 (11:34)
[2020-05-26] MEDS ORDERED: *HR* Dextrose 50 % in Water (Vial) 50 ML VIAL IVP PRN (11:34)
[2020-05-26] MEDS ORDERED: D5% in Water 1,000 ML IVC PRN (11:34)
[2020-05-26 11:37] LABS: Albumin 3.4 g/dL (3.5-5.7); Albumin/Globulin Ratio 1.1 (1.1-2.2); Bilirubin,Direct 0.1 mg/dL (0.0-0.2); Bilirubin,Indirect 0.3 mg/dL (0.0-1.0); Bilirubin,Total 0.4 mg/dL (0.3-1.0); Magnesium 1.6 mg/dL (1.6-2.6); Phosphorous 3.7 mg/dL (2.7-4.5); Total Protein 6.4 g/dL (6.4-8.9)
[2020-05-26] MEDS ORDERED: Furosemide 40 MG/4 ML VIAL IVP ONE (11:48)
[2020-05-26 12:08] LABS: ABG Base Excess 9 mEq/L (-2 to 3); ABG HCO3 36 mEq/L (21-27); ABG Oxygen Saturation 94 % (95-98); ABG PCO2 56 mmHg (35-45); ABG PH 7.41 pH Units (7.32-7.45); ABG PO2 72 mmHg (85-104); ABG TCO2 37 mEq/L (20-26)
[2020-05-26] MEDS: Dexamethasone 4 MG/ML VIAL IVP SCH (12:30)
[2020-05-26 12:55] LABS: Estimated Average Glucose 283 mg/dl
[2020-05-26] MEDS ORDERED: Insulin LISPRO 300 UNITS/3 ML VIAL SQ SCH ×3 (16:30→21:00)
[2020-05-26] MEDS ORDERED: *HR* Labetalol 20 MG/4 ML SYRINGE IVP PRN (16:35)
[2020-05-26] MEDS ORDERED: Insulin DETEMIR 100 UNIT/ML X5UNITS SQ SCH ×2 (17:30→21:00)
[2020-05-26] MEDS ORDERED: *HR* Warfarin 1 MG TABLET PO ONE (18:00)
[2020-05-26] MEDS ORDERED: Warfarin perPT PO PRN (18:00)
[2020-05-26] MEDS: *HR* Amiodarone 200 MG TABLET PO SCH (18:26)
[2020-05-26] MEDS: Gabapentin 300 MG CAPSULE PO SCH (20:51)
[2020-05-26] MEDS: Gabapentin 100 MG CAPSULE PO SCH (20:51)
[2020-05-26] MEDS: Metoprolol XL (24 HR) Succ 50 MG TAB.ER.24H PO SCH (20:51)
[2020-05-26] MEDS: traZODone 50 MG TABLET PO SCH (20:51)
[2020-05-27] MEDS ORDERED: 0.9 % Sodium Chloride 250 ML ONE (06:12)
[2020-05-27] MEDS: Insulin LISPRO 300 UNITS/3 ML VIAL SQ SCH ×3 (07:45→16:35)
[2020-05-27] MEDS: Dexamethasone 4 MG/ML VIAL IVP SCH (07:51)
[2020-05-27] MEDS: Aspirin 81 MG TAB.CHEW PO SCH (07:52)
[2020-05-27] MEDS: Gabapentin 100 MG CAPSULE PO SCH ×2 (07:52→20:54)
[2020-05-27] MEDS: Metoprolol XL (24 HR) Succ 50 MG TAB.ER.24H PO SCH ×2 (07:52→20:54)
[2020-05-27] MEDS: DilTIAZem CD (24hr) 240 MG CAP.ER.24H PO SCH (07:53)
[2020-05-27] MEDS: *HR* Amiodarone 200 MG TABLET PO SCH (07:53)
[2020-05-27] MEDS: Furosemide 40 MG/4 ML VIAL IVP SCH ×2 (08:13→20:55)
[2020-05-27] MEDS ORDERED: lisinopriL 20 MG TABLET PO SCH (09:00)
[2020-05-27] MEDS ORDERED: Furosemide 40 MG/4 ML VIAL IVP SCH (09:00)
[2020-05-27] MEDS ORDERED: *HR* Amiodarone 200 MG TABLET PO SCH (09:00)
[2020-05-27 14:41] LABS: Basophils # 0.1 K/mcL (0.0-0.2); Basophils % 0.4 %; Eosinophils % 0.1 %; Hematocrit 53.6 % (37.5-50.1); Hemoglobin 16.6 g/dL (12.9-16.9); Immature Granulocytes % 0.8 % (0-4); Lymphocytes # 0.7 K/mcL (0.6-4.6); Lymphocytes % 5.7 %; Mean Corpuscular Hemoglobin 28.9 pg (28.0-33.3); Mean Corpuscular Volume 93.4 fL (83.0-100.0); Mean Platelet Volume 9.5 fL (9.4-12.4); Monocytes # 0.2 K/mcL (0.0-1.3); Monocytes % 1.9 %; Neutrophils # 10.9 K/mcL (1.6-8.9); Platelet Count 539 K/mcL (140-400); Red Blood Count 5.74 M/mcL (4.19-5.50); Red Cell Distribution Width 14.6 % (11.5-14.5); Segmented Neutrophils % 91.1 %
[2020-05-27 15:12] LABS: INR 3.3; Prothrombin Time 36.6 Seconds (9.4-12.1)
[2020-05-27] MEDS: Ipratropium 1 PUFF INHALER IH SCH ×3 (15:34→23:58)
[2020-05-27 15:40] LABS: BUN/Creatinine Ratio 25 (6-26); Blood Urea Nitrogen 16 mg/dL (6-20); Calcium 8.9 mg/dL (8.6-10.3); Carbon Dioxide 32 mEq/L (23-29); Chloride 99 mEq/L (98-107); Glucose 417 mg/dL (70-105); Osmolality,Calculated 309 (280-300); Phosphorous 4.5 mg/dL (2.7-4.5); Potassium 4.5 mEq/L (3.5-5.1); Sodium 140 mEq/L (136-145); eGFR For African Americans > 60 (> 60); eGFR For Non-African Americans > 60 (> 60)
[2020-05-27] MEDS: Gabapentin 300 MG CAPSULE PO SCH (20:54)
[2020-05-27] MEDS: traZODone 50 MG TABLET PO SCH (20:55)
[2020-05-27] MEDS ORDERED: Insulin LISPRO 300 UNITS/3 ML VIAL SQ SCH (21:00)
[2020-05-27] MEDS ORDERED: Insulin DETEMIR 100 UNIT/ML X5UNITS SQ SCH (21:00)
[2020-05-28] MEDS: Ipratropium 1 PUFF INHALER IH SCH ×3 (04:13→11:34)
[2020-05-28 05:50] LABS: Hematocrit 49.7 % (37.5-50.1); Hemoglobin 15.8 g/dL (12.9-16.9); Mean Corpuscular HGB Conc 31.8 g/dL (31.6-35.5); Mean Corpuscular Hemoglobin 28.9 pg (28.0-33.3); Mean Corpuscular Volume 90.9 fL (83.0-100.0); Mean Platelet Volume 9.8 fL (9.4-12.4); Platelet Count 527 K/mcL (140-400); Red Blood Count 5.47 M/mcL (4.19-5.50); White Blood Count 14.5 K/mcL (4.3-11.1)
[2020-05-28 05:53] LABS: INR 2.4; Prothrombin Time 26.7 Seconds (9.4-12.1)
[2020-05-28 06:05] LABS: BUN/Creatinine Ratio 30 (6-26); Blood Urea Nitrogen 17 mg/dL (6-20); Calcium 8.5 mg/dL (8.6-10.3); Carbon Dioxide 33 mEq/L (23-29); Chloride 96 mEq/L (98-107); Glucose 241 mg/dL (70-105); Osmolality,Calculated 289 (280-300); Potassium 3.9 mEq/L (3.5-5.1); Sodium 135 mEq/L (136-145); eGFR For African Americans > 60 (> 60); eGFR For Non-African Americans > 60 (> 60)
[2020-05-28 08:55] VITALS: BP 159/103
[2020-05-28] MEDS: Furosemide 40 MG/4 ML VIAL IVP SCH (09:34)
[2020-05-28] MEDS: Gabapentin 100 MG CAPSULE PO SCH (09:36)
[2020-05-28] MEDS: *HR* Amiodarone 200 MG TABLET PO SCH (09:37)
[2020-05-28] MEDS: DilTIAZem CD (24hr) 240 MG CAP.ER.24H PO SCH (09:37)
[2020-05-28] MEDS: Aspirin 81 MG TAB.CHEW PO SCH (09:37)
[2020-05-28] MEDS: Metoprolol XL (24 HR) Succ 50 MG TAB.ER.24H PO SCH (09:37)
[2020-05-28] MEDS: Dexamethasone 4 MG/ML VIAL IVP SCH (09:37)
[2020-05-28] MEDS: Insulin LISPRO 300 UNITS/3 ML VIAL SQ SCH (09:44)
== END 2020-05-28 12:00 | disposition home or self-care (01) | DRG 177 ==
LOC: 2NENU
PROVIDERS: ADMIT Student in an Organized Health Care Education/Training Program; ATTEND Student in an Organized Health Care Education/Training Program

== ENCOUNTER 2021-01-26 09:24 | Inpatient (IN) ==
[2021-01-26] MEDS ORDERED: DilTIAZem 125 MG in D5% in Water 100 ML IVC SCH (09:45)
[2021-01-26] MEDS ORDERED: Furosemide 40 MG/4 ML VIAL IVP ONE (10:01)
[2021-01-26] MEDS: DilTIAZem 50 MG/50 ML IV.SOLN IVC SCH ×2 (10:11→19:26)
[2021-01-26 10:12] LABS: Basophils # 0.1 K/mcL (0.0-0.2); Eosinophils # 0.3 K/mcL (0.0-0.6); Eosinophils % 2.7 %; Hemoglobin 17.9 g/dL (12.9-16.9); Immature Granulocytes % 0.3 % (0-4); Lymphocytes # 2.6 K/mcL (0.6-4.6); Lymphocytes % 27.2 %; Mean Corpuscular HGB Conc 32.5 g/dL (31.6-35.5); Mean Corpuscular Hemoglobin 29.2 pg (28.0-33.3); Mean Corpuscular Volume 89.6 fL (83.0-100.0); Mean Platelet Volume 10.3 fL (9.4-12.4); Monocytes # 0.9 K/mcL (0.0-1.3); Monocytes % 9.2 %; Neutrophils # 5.7 K/mcL (1.6-8.9); Platelet Count 264 K/mcL (140-400); Red Blood Count 6.14 M/mcL (4.19-5.50); Red Cell Distribution Width 14.3 % (11.5-14.5); Segmented Neutrophils % 59.6 %; White Blood Count 9.6 K/mcL (4.3-11.1)
[2021-01-26 10:22] LABS: BUN/Creatinine Ratio 23 (6-26); Blood Urea Nitrogen 17 mg/dL (6-20); Calcium 9.4 mg/dL (8.6-10.3); Carbon Dioxide 27 mEq/L (23-29); Chloride 103 mEq/L (98-107); Glucose 217 mg/dL (70-105); Osmolality,Calculated 294 (280-300); Potassium 4.1 mEq/L (3.5-5.1); Sodium 138 mEq/L (136-145); Troponin I < 0.03 ng/mL (< 0.04); eGFR For African Americans > 60 (> 60); eGFR For Non-African Americans > 60 (> 60)
[2021-01-26 10:27] LABS: INR 2.4; Prothrombin Time 27.6 Seconds (9.4-12.1)
[2021-01-26] MEDS ORDERED: Naloxone 0.4 MG/ML INJ IVP PRN (12:57)
[2021-01-26] MEDS ORDERED: Dextrose Gel 15 GM/37.5 ML TUBE PO PRN ×2 (16:53)
[2021-01-26] MEDS ORDERED: *HR* Dextrose 50 % in Water (Vial) 50 ML VIAL IVP PRN (16:53)
[2021-01-26] MEDS ORDERED: D5% in Water 1,000 ML IVC PRN (16:53)
[2021-01-26] MEDS ORDERED: Perflutren Lipid Microsphere 1.3 ML in 0.9 % Sodium Chloride 8.7 ML IVP PRN (17:06)
[2021-01-26 18:42] LABS: Estimated Average Glucose 280 mg/dl; Hemoglobin A1C 11.4 %
[2021-01-26] MEDS: Insulin LISPRO 300 UNITS/3 ML VIAL SUBQ SCH ×2 (19:17→22:54)
[2021-01-26] MEDS: Gabapentin 300 MG CAPSULE PO SCH (22:51)
[2021-01-26] MEDS: *HR* OxyCODONE/APAP 7.5/325 TABLET PO PRN (22:52)
[2021-01-26] MEDS: Metoprolol XL (24 HR) Succ 50 MG TAB.ER.24H PO SCH (22:52)
[2021-01-26] MEDS: traZODone 50 MG TABLET PO SCH (22:53)
[2021-01-27] MEDS: DilTIAZem 50 MG/50 ML IV.SOLN IVC SCH ×3 (03:44→21:30)
[2021-01-27 06:45] LABS: Basophils # 0.1 K/mcL (0.0-0.2); Basophils % 1.3 %; Eosinophils # 0.4 K/mcL (0.0-0.6); Eosinophils % 3.9 %; Hemoglobin 17.8 g/dL (12.9-16.9); Immature Granulocytes % 0.4 % (0-4); Lymphocytes # 2.3 K/mcL (0.6-4.6); Lymphocytes % 22.8 %; Mean Corpuscular HGB Conc 31.1 g/dL (31.6-35.5); Mean Corpuscular Hemoglobin 28.4 pg (28.0-33.3); Mean Corpuscular Volume 91.4 fL (83.0-100.0); Monocytes % 9.7 %; Neutrophils # 6.3 K/mcL (1.6-8.9); Platelet Count 241 K/mcL (140-400); Red Blood Count 6.27 M/mcL (4.19-5.50); Red Cell Distribution Width 14.6 % (11.5-14.5); Segmented Neutrophils % 61.9 %; White Blood Count 10.1 K/mcL (4.3-11.1)
[2021-01-27 06:46] LABS: Hematocrit 57.3 % (37.5-50.1)
[2021-01-27 07:14] LABS: BUN/Creatinine Ratio 26 (6-26); Blood Urea Nitrogen 17 mg/dL (6-20); Carbon Dioxide 26 mEq/L (23-29); Chloride 100 mEq/L (98-107); Glucose 171 mg/dL (70-105); Osmolality,Calculated 288 (280-300); Potassium 3.9 mEq/L (3.5-5.1); Sodium 136 mEq/L (136-145); eGFR For African Americans > 60 (> 60); eGFR For Non-African Americans > 60 (> 60)
[2021-01-27 08:26] LABS: Magnesium 1.9 mg/dL (1.6-2.6)
[2021-01-27] MEDS ORDERED: DilTIAZem CD (24hr) 240 MG CAP.ER.24H PO SCH (09:00)
[2021-01-27] MEDS: Cholecalciferol (D-3) 1,000 UNIT (25MCG) TABLET PO SCH (09:28)
[2021-01-27] MEDS: Metoprolol XL (24 HR) Succ 50 MG TAB.ER.24H PO SCH ×2 (09:29→21:12)
[2021-01-27] MEDS: Gabapentin 100 MG CAPSULE PO SCH ×2 (09:29→13:19)
[2021-01-27] MEDS: lisinopriL 20 MG TABLET PO SCH (09:30)
[2021-01-27] MEDS: Aspirin 81 MG TAB.CHEW PO SCH (09:30)
[2021-01-27] MEDS: Furosemide 40 MG/4 ML VIAL IVP SCH (09:31)
[2021-01-27] MEDS: Insulin LISPRO 300 UNITS/3 ML VIAL SUBQ SCH ×5 (09:41→21:27)
[2021-01-27 16:27] LABS: INR 1.7
[2021-01-27] MEDS ORDERED: *HR* Warfarin 10 MG TABLET PO ONE (18:00)
[2021-01-27] MEDS ORDERED: Warfarin perPT PO PRN (18:00)
[2021-01-27] MEDS: Gabapentin 300 MG CAPSULE PO SCH (21:13)
[2021-01-27] MEDS: traZODone 50 MG TABLET PO SCH (21:13)
[2021-01-27] MEDS: Insulin DETEMIR 100 UNIT/ML X5UNITS SUBQ SCH (21:19)
[2021-01-27] MEDS: *HR* OxyCODONE/APAP 7.5/325 TABLET PO PRN (21:23)
[2021-01-28] MEDS ORDERED: Regadenoson 0.4 MG/5 ML SYRINGE IVP ONE (06:23)
[2021-01-28 07:21] LABS: Basophils # 0.1 K/mcL (0.0-0.2); Basophils % 0.8 %; Eosinophils # 0.3 K/mcL (0.0-0.6); Eosinophils % 2.7 %; Hematocrit 54.2 % (37.5-50.1); Hemoglobin 17.7 g/dL (12.9-16.9); Immature Granulocytes % 0.6 % (0-4); Lymphocytes # 1.8 K/mcL (0.6-4.6); Lymphocytes % 13.9 %; Mean Corpuscular HGB Conc 32.7 g/dL (31.6-35.5); Mean Corpuscular Hemoglobin 29.7 pg (28.0-33.3); Mean Corpuscular Volume 91.1 fL (83.0-100.0); Mean Platelet Volume 10.2 fL (9.4-12.4); Monocytes # 1.1 K/mcL (0.0-1.3); Monocytes % 8.4 %; Neutrophils # 9.4 K/mcL (1.6-8.9); Platelet Count 270 K/mcL (140-400); Red Blood Count 5.95 M/mcL (4.19-5.50); Red Cell Distribution Width 14.4 % (11.5-14.5); Segmented Neutrophils % 73.6 %; White Blood Count 12.8 K/mcL (4.3-11.1)
[2021-01-28 07:28] LABS: INR 1.7; Prothrombin Time 19.3 Seconds (9.4-12.1)
[2021-01-28 07:40] LABS: BUN/Creatinine Ratio 27 (6-26); Blood Urea Nitrogen 21 mg/dL (6-20); Calcium 9.1 mg/dL (8.6-10.3); Carbon Dioxide 28 mEq/L (23-29); Chloride 101 mEq/L (98-107); Glucose 209 mg/dL (70-105); Magnesium 1.9 mg/dL (1.6-2.6); Osmolality,Calculated 293 (280-300); Phosphorous 4.4 mg/dL (2.7-4.5); Potassium 3.9 mEq/L (3.5-5.1); Sodium 137 mEq/L (136-145); eGFR For African Americans > 60 (> 60); eGFR For Non-African Americans > 60 (> 60)
[2021-01-28] MEDS ORDERED: DilTIAZem CD (24hr) 180 MG CAP.ER.24H PO SCH (09:00)
[2021-01-28] MEDS: Metoprolol XL (24 HR) Succ 50 MG TAB.ER.24H PO SCH ×2 (09:32→19:45)
[2021-01-28] MEDS ORDERED: *HR* Digoxin 0.5 MG/2 ML AMPUL IVP SCH (10:28)
[2021-01-28] MEDS: Aspirin 81 MG TAB.CHEW PO SCH (11:26)
[2021-01-28] MEDS: Cholecalciferol (D-3) 1,000 UNIT (25MCG) TABLET PO SCH (11:26)
[2021-01-28] MEDS: Gabapentin 100 MG CAPSULE PO SCH ×2 (11:26→16:43)
[2021-01-28] MEDS: lisinopriL 20 MG TABLET PO SCH (11:26)
[2021-01-28] MEDS: Furosemide 40 MG/4 ML VIAL IVP SCH (11:27)
[2021-01-28] MEDS: Insulin LISPRO 300 UNITS/3 ML VIAL SUBQ SCH ×7 (11:35→22:25)
[2021-01-28] MEDS: *HR* Digoxin 0.5 MG/2 ML AMPUL IVP SCH ×2 (13:24→18:27)
[2021-01-28] MEDS ORDERED: Isovue-370 500 ML BOTTLE IVP ONE (17:30)
[2021-01-28] MEDS ORDERED: *HR* Warfarin 10 MG TABLET PO ONE (18:00)
[2021-01-28] MEDS: traZODone 50 MG TABLET PO SCH (19:45)
[2021-01-28] MEDS: Gabapentin 300 MG CAPSULE PO SCH (22:32)
[2021-01-28] MEDS: Insulin DETEMIR 100 UNIT/ML X5UNITS SUBQ SCH ×2 (22:36→22:47)
[2021-01-28] MEDS: *HR* OxyCODONE/APAP 7.5/325 TABLET PO PRN (22:36)
[2021-01-29] MEDS: *HR* Digoxin 0.5 MG/2 ML AMPUL IVP SCH ×2 (01:31→09:10)
[2021-01-29 02:40] LABS: Basophils # 0.1 K/mcL (0.0-0.2); Eosinophils # 0.4 K/mcL (0.0-0.6); Eosinophils % 3.3 %; Hemoglobin 16.7 g/dL (12.9-16.9); Immature Granulocytes % 0.5 % (0-4); Lymphocytes % 27.5 %; Mean Corpuscular HGB Conc 31.5 g/dL (31.6-35.5); Mean Platelet Volume 10.4 fL (9.4-12.4); Monocytes # 1.2 K/mcL (0.0-1.3); Monocytes % 10.9 %; Neutrophils # 6.1 K/mcL (1.6-8.9); Platelet Count 268 K/mcL (140-400); Red Blood Count 5.76 M/mcL (4.19-5.50); Red Cell Distribution Width 14.5 % (11.5-14.5); Segmented Neutrophils % 56.8 %; White Blood Count 10.8 K/mcL (4.3-11.1)
[2021-01-29 02:55] LABS: Prothrombin Time 22.5 Seconds (9.4-12.1)
[2021-01-29 03:00] LABS: BUN/Creatinine Ratio 31 (6-26); Blood Urea Nitrogen 27 mg/dL (6-20); Calcium 9.1 mg/dL (8.6-10.3); Carbon Dioxide 27 mEq/L (23-29); Chloride 99 mEq/L (98-107); Glucose 219 mg/dL (70-105); Magnesium 1.9 mg/dL (1.6-2.6); Osmolality,Calculated 290 (280-300); Potassium 4.1 mEq/L (3.5-5.1); Sodium 134 mEq/L (136-145); eGFR For African Americans > 60 (> 60); eGFR For Non-African Americans > 60 (> 60)
[2021-01-29] MEDS ORDERED: Regadenoson 0.4 MG/5 ML SYRINGE IVP ONE (08:51)
[2021-01-29] MEDS: Insulin LISPRO 300 UNITS/3 ML VIAL SUBQ SCH ×7 (08:57→20:47)
[2021-01-29] MEDS: Aspirin 81 MG TAB.CHEW PO SCH (09:12)
[2021-01-29] MEDS: Gabapentin 100 MG CAPSULE PO SCH ×2 (09:12→15:50)
[2021-01-29] MEDS: Cholecalciferol (D-3) 1,000 UNIT (25MCG) TABLET PO SCH (09:13)
[2021-01-29] MEDS: Metoprolol XL (24 HR) Succ 50 MG TAB.ER.24H PO SCH ×2 (09:13→20:51)
[2021-01-29] MEDS: Insulin DETEMIR 100 UNIT/ML X5UNITS SUBQ SCH ×2 (09:22→20:51)
[2021-01-29] MEDS ORDERED: Isovue-370 500 ML BOTTLE IVP ONE (11:01)
[2021-01-29] MEDS: DilTIAZem CD (24hr) 240 MG CAP.ER.24H PO SCH (11:37)
[2021-01-29] MEDS: Furosemide 40 MG/4 ML VIAL IVP SCH (11:38)
[2021-01-29] MEDS: lisinopriL 20 MG TABLET PO SCH (15:50)
[2021-01-29] MEDS: *HR* OxyCODONE/APAP 7.5/325 TABLET PO PRN (15:53)
[2021-01-29] MEDS ORDERED: *HR* Warfarin 7.5 MG TABLET PO ONE (18:00)
[2021-01-29] MEDS: Gabapentin 300 MG CAPSULE PO SCH (20:52)
[2021-01-29] MEDS: traZODone 50 MG TABLET PO SCH (20:52)
[2021-01-30 02:36] LABS: Basophils # 0.1 K/mcL (0.0-0.2); Basophils % 1.1 %; Eosinophils # 0.3 K/mcL (0.0-0.6); Eosinophils % 3.3 %; Hemoglobin 17.2 g/dL (12.9-16.9); Immature Granulocytes % 0.3 % (0-4); Lymphocytes # 2.5 K/mcL (0.6-4.6); Mean Corpuscular HGB Conc 31.3 g/dL (31.6-35.5); Mean Corpuscular Hemoglobin 28.8 pg (28.0-33.3); Mean Platelet Volume 10.6 fL (9.4-12.4); Monocytes # 1.1 K/mcL (0.0-1.3); Monocytes % 10.5 %; Platelet Count 287 K/mcL (140-400); Red Blood Count 5.98 M/mcL (4.19-5.50); Red Cell Distribution Width 14.4 % (11.5-14.5); Segmented Neutrophils % 59.8 %; White Blood Count 10.1 K/mcL (4.3-11.1)
[2021-01-30 02:52] LABS: BUN/Creatinine Ratio 29 (6-26); Blood Urea Nitrogen 27 mg/dL (6-20); Calcium 9.7 mg/dL (8.6-10.3); Carbon Dioxide 29 mEq/L (23-29); Chloride 101 mEq/L (98-107); Glucose 207 mg/dL (70-105); Magnesium 2.1 mg/dL (1.6-2.6); Osmolality,Calculated 299 (280-300); Phosphorous 4.4 mg/dL (2.7-4.5); Potassium 4.7 mEq/L (3.5-5.1); Sodium 139 mEq/L (136-145); eGFR For African Americans > 60 (> 60); eGFR For Non-African Americans > 60 (> 60)
[2021-01-30 02:55] LABS: INR 2.8; Prothrombin Time 31.3 Seconds (9.4-12.1)
[2021-01-30 04:33] VITALS: BP 112/75; TEMP 98
[2021-01-30 06:43] VITALS: PULSE 82; O2SAT 98
[2021-01-30] MEDS: lisinopriL 20 MG TABLET PO SCH (08:40)
[2021-01-30] MEDS: Cholecalciferol (D-3) 1,000 UNIT (25MCG) TABLET PO SCH (08:40)
[2021-01-30] MEDS: Aspirin 81 MG TAB.CHEW PO SCH (08:40)
[2021-01-30] MEDS: Metoprolol XL (24 HR) Succ 50 MG TAB.ER.24H PO SCH (08:40)
[2021-01-30] MEDS: Gabapentin 100 MG CAPSULE PO SCH ×2 (08:40→11:59)
[2021-01-30] MEDS: DilTIAZem CD (24hr) 240 MG CAP.ER.24H PO SCH (08:40)
[2021-01-30] MEDS: Insulin DETEMIR 100 UNIT/ML X5UNITS SUBQ SCH (08:48)
[2021-01-30] MEDS: Insulin LISPRO 300 UNITS/3 ML VIAL SUBQ SCH ×4 (08:48→11:55)
[2021-01-30] MEDS ORDERED: Furosemide 40 MG TABLET PO SCH (09:00)
[2021-01-30] MEDS ORDERED: *HR* Warfarin 4 MG TABLET PO ONE (18:00)
== END 2021-01-30 14:06 | disposition home or self-care (01) | DRG 308 ==
LOC: EMEROOARM 09:24 → CDU 09:24 → SUATTDRO 12:38 → CDU 13:51 → 2NENU 01-28 15:07
PROVIDERS: ADMIT Internal Medicine; ATTEND Internal Medicine

== ENCOUNTER 2021-12-25 21:22 | Inpatient (IN) ==
[2021-12-25] MEDS ORDERED: DilTIAZem 50 MG/50 ML IV.SOLN IVC SCH (22:00)
[2021-12-25 22:05] LABS: Basophils # 0.1 K/mcL (0.0-0.2); Basophils % 1.1 %; Eosinophils # 0.1 K/mcL (0.0-0.6); Hemoglobin 17.8 g/dL (12.9-16.9); Immature Granulocytes % 0.4 % (0-4); Lymphocytes # 1.7 K/mcL (0.6-4.6); Lymphocytes % 16.1 %; Mean Corpuscular HGB Conc 31.6 g/dL (31.6-35.5); Mean Corpuscular Hemoglobin 28.8 pg (28.0-33.3); Mean Corpuscular Volume 91.2 fL (83.0-100.0); Mean Platelet Volume 11.2 fL (9.4-12.4); Monocytes # 0.7 K/mcL (0.0-1.3); Neutrophils # 7.9 K/mcL (1.6-8.9); Platelet Count 276 K/mcL (140-400); Red Blood Count 6.17 M/mcL (4.19-5.50); Red Cell Distribution Width 14.9 % (11.5-14.5); Segmented Neutrophils % 74.4 %; White Blood Count 10.6 K/mcL (4.3-11.1)
[2021-12-25 22:06] LABS: Hematocrit 56.3 % (37.5-50.1)
[2021-12-25 22:32] LABS: BUN/Creatinine Ratio 22 (6-26); Blood Urea Nitrogen 18 mg/dL (6-20); Calcium 9.1 mg/dL (8.6-10.3); Carbon Dioxide 28 mEq/L (23-29); Chloride 97 mEq/L (98-107); Glucose 521 mg/dL (70-105); Magnesium 1.6 mg/dL (1.6-2.6); Osmolality,Calculated 303 (280-300); Potassium 4.1 mEq/L (3.5-5.1); Sodium 134 mEq/L (136-145); Troponin I 0.06 ng/mL (< 0.04); eGFR For African Americans > 60 (> 60); eGFR For Non-African Americans > 60 (> 60)
[2021-12-25] MEDS ORDERED: Insulin Human Regular 5 UNIT in 0.9 % Sodium Chloride 10 ML IV ONE (22:34)
[2021-12-25] MEDS ORDERED: Ipratropium/Albuterol Neb 3 ML IH ONE (22:39)
[2021-12-25] MEDS ORDERED: Furosemide 20 MG/2 ML VIAL IVP ONE (22:39)
[2021-12-25 22:45] LABS: Thyroid Stimulating Hormone 2.569 mcIU/mL (0.340-5.600)
[2021-12-25 22:56] LABS: INR 2.4; Prothrombin Time 26.9 Seconds (9.4-12.1)
[2021-12-25 22:58] LABS: Activated Partial Thrombo Time 35.8 Seconds (26.0-36.0)
[2021-12-25] MEDS ORDERED: Potassium Chloride Elixir 20 MEQ/15 ML UDC PO ONE (23:03)
[2021-12-25 23:42] LABS: Bilirubin,Urine Negative (Negative); Blood,Urine Negative (Negative); Clarity,Urine Clear (Clear); Color,Urine Colorless (Yellow); Glucose,Urine (UA) >=1000 mg/dL (Normal); Ketones,Urine Negative (Negative); Leukocyte Esterase,Urine Negative (Negative); Nitrite,Urine Negative (Negative); Protein,Urine 70 mg/dL (Neg-Trace); RBC,Urine 0-3 per hpf (0-3); Specific Gravity,Urine 1.028 (1.010-1.025); Urobilinogen,Urine Normal (Normal)
[2021-12-26] MEDS ORDERED: Ondansetron 4 MG/2 ML VIAL IVP PRN (00:40)
[2021-12-26] MEDS ORDERED: Naloxone 0.4 MG/ML INJ IVP PRN (00:40)
[2021-12-26] MEDS ORDERED: Dextrose Gel 15 GM/37.5 ML TUBE PO PRN ×2 (00:44)
[2021-12-26] MEDS ORDERED: D5% in Water 1,000 ML IVC PRN (00:44)
[2021-12-26] MEDS ORDERED: *HR* Dextrose 50 % in Water (Syg) 50 ML SYRINGE IVP PRN (00:44)
[2021-12-26] MEDS ORDERED: Perflutren Lipid Microsphere 1.3 ML in 0.9 % Sodium Chloride 8.7 ML IVP PRN (00:48)
[2021-12-26] MEDS ORDERED: Aspirin 81 MG TAB.CHEW PO ONE (00:54)
[2021-12-26] MEDS ORDERED: Insulin LISPRO 300 UNITS/3 ML VIAL SUBQ SCH ×2 (01:00→21:00)
[2021-12-26] MEDS: Insulin LISPRO 300 UNITS/3 ML VIAL SUBQ SCH ×4 (04:12→16:27)
[2021-12-26] MEDS: Insulin DETEMIR 100 UNIT/ML X5UNITS SUBQ SCH ×2 (04:12→20:29)
[2021-12-26 06:18] LABS: Hematocrit 52.7 % (37.5-50.1); Hemoglobin 16.9 g/dL (12.9-16.9); Mean Corpuscular HGB Conc 32.1 g/dL (31.6-35.5); Mean Corpuscular Hemoglobin 28.9 pg (28.0-33.3); Mean Corpuscular Volume 90.2 fL (83.0-100.0); Mean Platelet Volume 11.4 fL (9.4-12.4); Platelet Count 258 K/mcL (140-400); Red Blood Count 5.84 M/mcL (4.19-5.50); Red Cell Distribution Width 14.4 % (11.5-14.5)
[2021-12-26 06:29] LABS: INR 2.6; Prothrombin Time 29.2 Seconds (9.4-12.1)
[2021-12-26 06:44] LABS: BUN/Creatinine Ratio 23 (6-26); Blood Urea Nitrogen 16 mg/dL (6-20); Calcium 8.9 mg/dL (8.6-10.3); Carbon Dioxide 30 mEq/L (23-29); Chloride 98 mEq/L (98-107); Glucose 344 mg/dL (70-105); Osmolality,Calculated 297 (280-300); Potassium 3.5 mEq/L (3.5-5.1); Sodium 136 mEq/L (136-145); eGFR For African Americans > 60 (> 60); eGFR For Non-African Americans > 60 (> 60)
[2021-12-26] MEDS: DilTIAZem 50 MG/50 ML IV.SOLN IVC SCH ×3 (07:28→12:50)
[2021-12-26 09:12] LABS: Estimated Average Glucose 375 mg/dl; Hemoglobin A1C 14.7 %
[2021-12-26] MEDS ORDERED: *HR* Amiodarone 200 MG TABLET PO SCH (09:45)
[2021-12-26] MEDS: Metoprolol XL (24 HR) Succ 50 MG TAB.ER.24H PO SCH ×2 (09:48→19:42)
[2021-12-26] MEDS: Acetaminophen 325 MG TABLET PO PRN ×2 (11:28→19:45)
[2021-12-26] MEDS: Furosemide 40 MG/4 ML VIAL IVP SCH ×2 (11:28→16:45)
[2021-12-26] MEDS: *HR* Metoprolol 5 MG/5 ML VIAL IVP PRN ×2 (15:15→22:15)
[2021-12-26] MEDS ORDERED: *HR* Labetalol 20 MG/4 ML SYRINGE IVP ONE (15:40)
[2021-12-26] MEDS ORDERED: Warfarin perPT PO PRN (18:00)
[2021-12-26] MEDS ORDERED: *HR* Warfarin 7.5 MG TABLET PO ONE (18:00)
[2021-12-26] MEDS ORDERED: Amiodarone Premix 150 MG/100 ML BAG IVPB ONE (21:00)
[2021-12-26] MEDS: Amiodarone Premix 360 MG/200 ML BAG IVC SCH (21:24)
[2021-12-27 01:45] LABS: Hemoglobin 17.6 g/dL (12.9-16.9); Mean Corpuscular HGB Conc 31.9 g/dL (31.6-35.5); Mean Corpuscular Hemoglobin 29.2 pg (28.0-33.3); Mean Corpuscular Volume 91.4 fL (83.0-100.0); Mean Platelet Volume 11.2 fL (9.4-12.4); Platelet Count 275 K/mcL (140-400); Red Blood Count 6.03 M/mcL (4.19-5.50); Red Cell Distribution Width 14.6 % (11.5-14.5); White Blood Count 8.4 K/mcL (4.3-11.1)
[2021-12-27 01:46] LABS: Hematocrit 55.1 % (37.5-50.1)
[2021-12-27 02:05] LABS: BUN/Creatinine Ratio 29 (6-26); Blood Urea Nitrogen 21 mg/dL (6-20); Carbon Dioxide 33 mEq/L (23-29); Chloride 97 mEq/L (98-107); Glucose 321 mg/dL (70-105); Magnesium 1.6 mg/dL (1.6-2.6); Osmolality,Calculated 299 (280-300); Potassium 3.7 mEq/L (3.5-5.1); Sodium 137 mEq/L (136-145); eGFR For African Americans > 60 (> 60); eGFR For Non-African Americans > 60 (> 60)
[2021-12-27] MEDS: Amiodarone Premix 360 MG/200 ML BAG IVC SCH ×3 (03:09→18:41)
[2021-12-27] MEDS: *HR* Metoprolol 5 MG/5 ML VIAL IVP PRN (03:09)
[2021-12-27] MEDS: Acetaminophen 325 MG TABLET PO PRN (03:11)
[2021-12-27 04:03] LABS: INR 3.1; Prothrombin Time 34.2 Seconds (9.4-12.1)
[2021-12-27] MEDS: Insulin LISPRO 300 UNITS/3 ML VIAL SUBQ SCH ×4 (08:04→20:46)
[2021-12-27] MEDS: Furosemide 40 MG/4 ML VIAL IVP SCH ×2 (08:04→17:57)
[2021-12-27] MEDS: Metoprolol XL (24 HR) Succ 50 MG TAB.ER.24H PO SCH ×3 (08:05→20:46)
[2021-12-27] MEDS ORDERED: *HR* Warfarin 2.5 MG TABLET PO ONE (18:00)
[2021-12-27] MEDS: Insulin DETEMIR 100 UNIT/ML X5UNITS SUBQ SCH (20:46)
[2021-12-28 02:08] LABS: Mean Corpuscular HGB Conc 31.4 g/dL (31.6-35.5); Mean Corpuscular Hemoglobin 29.1 pg (28.0-33.3); Mean Corpuscular Volume 92.6 fL (83.0-100.0); Mean Platelet Volume 10.6 fL (9.4-12.4); Platelet Count 268 K/mcL (140-400); Red Blood Count 6.19 M/mcL (4.19-5.50); Red Cell Distribution Width 14.6 % (11.5-14.5); White Blood Count 10.5 K/mcL (4.3-11.1)
[2021-12-28 02:15] LABS: Hematocrit 57.3 % (37.5-50.1)
[2021-12-28 02:31] LABS: BUN/Creatinine Ratio 30 (6-26); Blood Urea Nitrogen 22 mg/dL (6-20); Calcium 9.2 mg/dL (8.6-10.3); Carbon Dioxide 33 mEq/L (23-29); Chloride 97 mEq/L (98-107); Glucose 205 mg/dL (70-105); Magnesium 1.7 mg/dL (1.6-2.6); Osmolality,Calculated 291 (280-300); Potassium 3.9 mEq/L (3.5-5.1); Sodium 136 mEq/L (136-145); eGFR For African Americans > 60 (> 60); eGFR For Non-African Americans > 60 (> 60)
[2021-12-28] MEDS: Acetaminophen 325 MG TABLET PO PRN (03:20)
[2021-12-28 05:10] LABS: INR 3.1; Prothrombin Time 34.3 Seconds (9.4-12.1)
[2021-12-28] MEDS ORDERED: Ketorolac 30 MG/ML VIAL IVP ONE (05:48)
[2021-12-28] MEDS: Insulin LISPRO 300 UNITS/3 ML VIAL SUBQ SCH ×4 (06:58→22:52)
[2021-12-28] MEDS: Insulin DETEMIR 100 UNIT/ML X5UNITS SUBQ SCH ×2 (07:13→22:51)
[2021-12-28] MEDS: Furosemide 40 MG/4 ML VIAL IVP SCH (07:13)
[2021-12-28] MEDS: Amiodarone Premix 360 MG/200 ML BAG IVC SCH (07:14)
[2021-12-28] MEDS: Metoprolol XL (24 HR) Succ 50 MG TAB.ER.24H PO SCH ×2 (07:25→22:57)
[2021-12-28] MEDS ORDERED: Lidocaine Viscous Oral Soln 15 ML SOLUTION MM PRN (11:32)
[2021-12-28] MEDS ORDERED: 0.9 % Sodium Chloride 500 ML IVC SCH (11:45)
[2021-12-28] MEDS ORDERED: *HR* Promethazine 25 MG/ML VIAL IM ONE (12:01)
[2021-12-28] MEDS ORDERED: *HR* LORazepam 2 MG/ML VIAL IVP ONE (12:03)
[2021-12-28] MEDS ORDERED: 0.9 % Sodium Chloride 250 ML IVC ONE (12:04)
[2021-12-28] MEDS: *HR* Midazolam HCl 5 MG/5 ML VIAL IVP PRN ×3 (13:40→14:04)
[2021-12-28] MEDS: *HR* FentaNYL (PF) 100 MCG/2 ML VIAL IVP PRN ×3 (13:40→14:00)
[2021-12-28] MEDS: Furosemide 40 MG TABLET PO SCH (16:49)
[2021-12-28] MEDS ORDERED: *HR* Warfarin 2.5 MG TABLET PO ONE (18:00)
[2021-12-28] MEDS: *HR* Amiodarone 200 MG TABLET PO SCH (22:51)
[2021-12-29 00:10] VITALS: O2SAT 100
[2021-12-29 02:15] LABS: Basophils # 0.1 K/mcL (0.0-0.2); Basophils % 0.9 %; Eosinophils # 0.1 K/mcL (0.0-0.6); Eosinophils % 1.2 %; Hemoglobin 17.3 g/dL (12.9-16.9); Immature Granulocytes % 0.3 % (0-4); Lymphocytes # 1.6 K/mcL (0.6-4.6); Lymphocytes % 15.2 %; Mean Corpuscular HGB Conc 29.9 g/dL (31.6-35.5); Mean Corpuscular Hemoglobin 29.1 pg (28.0-33.3); Mean Corpuscular Volume 97.3 fL (83.0-100.0); Mean Platelet Volume 11.5 fL (9.4-12.4); Monocytes # 1.3 K/mcL (0.0-1.3); Monocytes % 12.1 %; Neutrophils # 7.4 K/mcL (1.6-8.9); Platelet Count 301 K/mcL (140-400); Red Blood Count 5.94 M/mcL (4.19-5.50); Segmented Neutrophils % 70.3 %; White Blood Count 10.6 K/mcL (4.3-11.1)
[2021-12-29 02:16] LABS: Hematocrit 57.8 % (37.5-50.1)
[2021-12-29 02:33] LABS: BUN/Creatinine Ratio 29 (6-26); Blood Urea Nitrogen 24 mg/dL (6-20); Calcium 9.6 mg/dL (8.6-10.3); Carbon Dioxide 36 mEq/L (23-29); Chloride 96 mEq/L (98-107); Glucose 322 mg/dL (70-105); Osmolality,Calculated 300 (280-300); Potassium 4.2 mEq/L (3.5-5.1); Sodium 137 mEq/L (136-145); eGFR For African Americans > 60 (> 60); eGFR For Non-African Americans > 60 (> 60)
[2021-12-29 08:41] VITALS: BP 139/98; PULSE 72; TEMP 98.3
[2021-12-29 09:40] LABS: INR 2.1; Prothrombin Time 23.7 Seconds (9.4-12.1)
[2021-12-29] MEDS: Insulin LISPRO 300 UNITS/3 ML VIAL SUBQ SCH ×2 (10:10→12:08)
[2021-12-29] MEDS: *HR* Amiodarone 200 MG TABLET PO SCH (10:11)
[2021-12-29] MEDS: Metoprolol XL (24 HR) Succ 50 MG TAB.ER.24H PO SCH (10:11)
[2021-12-29] MEDS: Insulin DETEMIR 100 UNIT/ML X5UNITS SUBQ SCH (10:13)
[2021-12-29] MEDS: Furosemide 40 MG TABLET PO SCH (10:13)
[2021-12-29] MEDS ORDERED: *HR* Warfarin 5 MG TABLET PO ONE (18:00)
== END 2021-12-29 17:00 | disposition home health service (06) | DRG 201 ==
LOC: EMEROOARM 21:22 → 2NNU 21:22 → SUATTDRO 12-26 00:41 → 2NNU 12-26 01:30 → 2NENU 12-26 13:09
PROVIDERS: ADMIT Internal Medicine; ATTEND Internal Medicine

== ENCOUNTER 2022-01-29 18:58 | Inpatient (IN) ==
[2022-01-30] MEDS ORDERED: Cefepime HCl 2,000 MG in 0.9 % Sodium Chloride 10 ML IVP ONE (03:00)
[2022-01-30 03:04] LABS: Basophils # 0.1 K/mcL (0.0-0.2); Basophils % 0.4 %; Eosinophils % 0.1 %; Hemoglobin 18.2 g/dL (12.9-16.9); Immature Granulocytes % 0.4 % (0-4); Lymphocytes # 1.3 K/mcL (0.6-4.6); Lymphocytes % 7.6 %; Mean Corpuscular HGB Conc 30.5 g/dL (31.6-35.5); Mean Corpuscular Hemoglobin 29.1 pg (28.0-33.3); Mean Corpuscular Volume 95.2 fL (83.0-100.0); Mean Platelet Volume 11.4 fL (9.4-12.4); Monocytes # 1.4 K/mcL (0.0-1.3); Monocytes % 8.2 %; Neutrophils # 13.9 K/mcL (1.6-8.9); Platelet Count 338 K/mcL (140-400); Red Blood Count 6.26 M/mcL (4.19-5.50); Red Cell Distribution Width 16.8 % (11.5-14.5); Segmented Neutrophils % 83.3 %; White Blood Count 16.6 K/mcL (4.3-11.1)
[2022-01-30 03:05] LABS: Hematocrit 59.6 % (37.5-50.1)
[2022-01-30 03:10] LABS: VBG HCO3 31 mEq/L (21-27); VBG PCO2 72 mmHg (41-51); VBG PH 7.23 pH Units (7.32-7.42); VBG PO2 54 mmHg (25-50)
[2022-01-30] MEDS ORDERED: 0.9 % Sodium Chloride 500 ML IVC ONE ×2 (03:20→04:54)
[2022-01-30] MEDS ORDERED: Vancomycin 2,000 MG/520 ML IV.SOLN IVPB ONE (04:00)
[2022-01-30 04:26] LABS: Adenovirus Not Detected (Not Detect); Coronavirus 229E Not Detected (Not Detect); Coronavirus HKU1 Not Detected (Not Detect); Coronavirus NL63 Not Detected (Not Detect); Coronavirus OC43 Not Detected (Not Detect); Human Metapneumovirus Not Detected (Not Detect); Human Rhinovirus/Enterovirus Not Detected (Not Detect); Influenza A Subtype 2009 H1 Not Detected (Not Detect); SARS-CoV-2 Not Detected (Not Detect)
[2022-01-30 04:27] LABS: Bordetella Pertussis Not Detected (Not Detect); Chlamydophila pneumoniae Not Detected (Not Detect); Influenza B Not Detected (Not Detect); Mycoplasma pneumoniae Not Detected (Not Detect); Parainfluenza Virus 1 Not Detected (Not Detect); Parainfluenza Virus 2 Not Detected (Not Detect); Parainfluenza Virus 3 Not Detected (Not Detect); Parainfluenza Virus 4 Not Detected (Not Detect); Respiratory Syncytial Virus Not Detected (Not Detect)
[2022-01-30 04:31] LABS: INR 5.8
[2022-01-30 04:37] LABS: BUN/Creatinine Ratio 25 (6-26); Blood Urea Nitrogen 30 mg/dL (6-20); C-Reactive Protein 142 mg/L (Less than 10); Calcium 8.2 mg/dL (8.6-10.3); Carbon Dioxide 33 mEq/L (23-29); Chloride 91 mEq/L (98-107); Glucose 504 mg/dL (70-105); Osmolality,Calculated 299 (280-300); Potassium 4.9 mEq/L (3.5-5.1); Sodium 130 mEq/L (136-145); Troponin I 0.08 ng/mL (< 0.04); eGFR For African Americans > 60 (> 60); eGFR For Non-African Americans > 60 (> 60)
[2022-01-30] MEDS ORDERED: Ondansetron 4 MG/2 ML VIAL IVP PRN (05:24)
[2022-01-30] MEDS ORDERED: Naloxone 0.4 MG/ML INJ IVP PRN (05:24)
[2022-01-30] MEDS ORDERED: Acetaminophen 325 MG TABLET PO PRN (05:24)
[2022-01-30] MEDS ORDERED: D5% in Water 1,000 ML IVC PRN (05:31)
[2022-01-30] MEDS ORDERED: Dextrose Gel 15 GM/37.5 ML TUBE PO PRN ×2 (05:31)
[2022-01-30] MEDS ORDERED: *HR* Dextrose 50 % in Water (Syg) 50 ML SYRINGE IVP PRN (05:31)
[2022-01-30] MEDS: Cefepime HCl 2,000 MG in 0.9 % Sodium Chloride Mini Bag 100 ML IVPB SCH ×2 (08:02→16:41)
[2022-01-30] MEDS: Metoprolol XL (24 HR) Succ 50 MG TAB.ER.24H PO SCH ×2 (08:20→21:52)
[2022-01-30] MEDS: Furosemide 40 MG/4 ML VIAL IVP SCH ×2 (08:20→16:42)
[2022-01-30] MEDS: Insulin LISPRO 300 UNITS/3 ML VIAL SUBQ SCH ×7 (08:20→22:26)
[2022-01-30] MEDS: Insulin DETEMIR 100 UNIT/ML X5UNITS SUBQ SCH ×2 (08:20→22:09)
[2022-01-30 08:36] LABS: ABG Base Excess 2 mEq/L (-2 to 3); ABG Chloride 97 mEq/L (98-107); ABG Glucose 460 mg/dL (60-95); ABG HCO3 32 mEq/L (21-27); ABG Ionized Calcium 1.13 mmol/L (1.15-1.35); ABG Oxygen Saturation 98 % (95-98); ABG PCO2 63 mmHg (35-45); ABG PH 7.31 pH Units (7.32-7.45); ABG PO2 123 mmHg (85-104); ABG TCO2 34 mEq/L (20-26)
[2022-01-30 10:03] LABS: Estimated Average Glucose 421 mg/dl; Hemoglobin A1C 16.3 %
[2022-01-30 10:15] LABS: Bilirubin,Urine Negative (Negative); Blood,Urine Negative (Negative); Clarity,Urine Clear (Clear); Color,Urine Light-Yellow (Yellow); Glucose,Urine (UA) >=1000 mg/dL (Normal); Ketones,Urine Negative (Negative); Leukocyte Esterase,Urine Negative (Negative); Mucus,Urine Few per lpf (None-Few); Nitrite,Urine Negative (Negative); Protein,Urine 100 mg/dL (Neg-Trace); RBC,Urine 0-3 per hpf (0-3); Specific Gravity,Urine 1.027 (1.010-1.025); Squamous Epithelial Cell,Urine Few per hpf (None-Few); Urobilinogen,Urine Normal (Normal); WBC,Urine 0-3 per hpf (0-3)
[2022-01-30] MEDS: Vancomycin 1,500 MG/265 ML IV.SOLN IVPB SCH (16:43)
[2022-01-31] MEDS: Cefepime HCl 2,000 MG in 0.9 % Sodium Chloride Mini Bag 100 ML IVPB SCH ×3 (00:43→16:47)
[2022-01-31] MEDS ORDERED: Insulin LISPRO 300 UNITS/3 ML VIAL SUBQ ONE (01:00)
[2022-01-31 02:09] LABS: Basophils # 0.1 K/mcL (0.0-0.2); Basophils % 0.5 %; Eosinophils # 0.2 K/mcL (0.0-0.6); Eosinophils % 0.9 %; Hemoglobin 17.3 g/dL (12.9-16.9); Immature Granulocytes % 0.5 % (0-4); Lymphocytes % 6.2 %; Mean Corpuscular HGB Conc 30.2 g/dL (31.6-35.5); Mean Corpuscular Hemoglobin 29.7 pg (28.0-33.3); Mean Corpuscular Volume 98.1 fL (83.0-100.0); Mean Platelet Volume 11.7 fL (9.4-12.4); Monocytes # 1.6 K/mcL (0.0-1.3); Monocytes % 9.5 %; Neutrophils # 13.7 K/mcL (1.6-8.9); Platelet Count 303 K/mcL (140-400); Red Blood Count 5.83 M/mcL (4.19-5.50); Red Cell Distribution Width 16.4 % (11.5-14.5); Segmented Neutrophils % 82.4 %; White Blood Count 16.6 K/mcL (4.3-11.1)
[2022-01-31 02:14] LABS: Hematocrit 57.2 % (37.5-50.1)
[2022-01-31 02:29] LABS: BUN/Creatinine Ratio 25 (6-26); Blood Urea Nitrogen 30 mg/dL (6-20); Calcium 8.5 mg/dL (8.6-10.3); Carbon Dioxide 30 mEq/L (23-29); Chloride 95 mEq/L (98-107); Glucose 326 mg/dL (70-105); Osmolality,Calculated 297 (280-300); Potassium 4.3 mEq/L (3.5-5.1); Sodium 134 mEq/L (136-145); eGFR For African Americans > 60 (> 60); eGFR For Non-African Americans > 60 (> 60)
[2022-01-31] MEDS: Vancomycin 1,500 MG/265 ML IV.SOLN IVPB SCH (03:49)
[2022-01-31] MEDS ORDERED: *HR* Metoprolol 5 MG/5 ML VIAL IVP ONE ×2 (03:53→17:07)
[2022-01-31] MEDS ORDERED: Insulin DETEMIR 100 UNIT/ML X5UNITS SUBQ SCH ×2 (05:15→09:00)
[2022-01-31 06:09] LABS: INR 1.3; Prothrombin Time 14.9 Seconds (9.4-12.1)
[2022-01-31] MEDS: Furosemide 40 MG/4 ML VIAL IVP SCH (08:20)
[2022-01-31] MEDS: *HR* Amiodarone 200 MG TABLET PO SCH (08:21)
[2022-01-31] MEDS: Metoprolol XL (24 HR) Succ 50 MG TAB.ER.24H PO SCH ×2 (08:21→19:16)
[2022-01-31] MEDS: Insulin LISPRO 300 UNITS/3 ML VIAL SUBQ SCH ×7 (08:21→19:14)
[2022-01-31] MEDS ORDERED: Furosemide 40 MG TABLET PO SCH (09:00)
[2022-01-31] MEDS ORDERED: *HR* Warfarin 5 MG TABLET PO ONE (18:00)
[2022-01-31] MEDS ORDERED: Warfarin perPT PO PRN (18:00)
[2022-01-31] MEDS: Vancomycin 1,750 MG/517.5 ML IV.SOLN IVPB SCH (19:15)
[2022-01-31] MEDS: Insulin DETEMIR 100 UNIT/ML X5UNITS SUBQ SCH (19:43)
[2022-02-01] MEDS: Cefepime HCl 2,000 MG in 0.9 % Sodium Chloride Mini Bag 100 ML IVPB SCH ×3 (00:56→16:54)
[2022-02-01 02:37] LABS: Basophils # 0.1 K/mcL (0.0-0.2); Basophils % 0.6 %; Eosinophils # 0.1 K/mcL (0.0-0.6); Eosinophils % 0.9 %; Hemoglobin 17.3 g/dL (12.9-16.9); Immature Granulocytes % 0.7 % (0-4); Lymphocytes % 8.9 %; Mean Corpuscular HGB Conc 29.8 g/dL (31.6-35.5); Mean Corpuscular Hemoglobin 29.2 pg (28.0-33.3); Mean Corpuscular Volume 97.8 fL (83.0-100.0); Mean Platelet Volume 11.4 fL (9.4-12.4); Monocytes # 1.2 K/mcL (0.0-1.3); Monocytes % 10.3 %; Neutrophils # 9.1 K/mcL (1.6-8.9); Platelet Count 310 K/mcL (140-400); Red Blood Count 5.93 M/mcL (4.19-5.50); Red Cell Distribution Width 16.1 % (11.5-14.5); Segmented Neutrophils % 78.6 %; White Blood Count 11.5 K/mcL (4.3-11.1)
[2022-02-01 02:55] LABS: BUN/Creatinine Ratio 24 (6-26); Blood Urea Nitrogen 24 mg/dL (6-20); Calcium 8.3 mg/dL (8.6-10.3); Carbon Dioxide 32 mEq/L (23-29); Chloride 98 mEq/L (98-107); Glucose 230 mg/dL (70-105); Osmolality,Calculated 291 (280-300); Potassium 4.5 mEq/L (3.5-5.1); Sodium 135 mEq/L (136-145); eGFR For African Americans > 60 (> 60); eGFR For Non-African Americans > 60 (> 60)
[2022-02-01] MEDS: Vancomycin 1,750 MG/517.5 ML IV.SOLN IVPB SCH ×2 (05:32→17:44)
[2022-02-01 06:06] LABS: INR 1.3; Prothrombin Time 14.7 Seconds (9.4-12.1)
[2022-02-01] MEDS: Insulin LISPRO 300 UNITS/3 ML VIAL SUBQ SCH ×5 (08:07→20:04)
[2022-02-01] MEDS: Metoprolol XL (24 HR) Succ 50 MG TAB.ER.24H PO SCH ×2 (08:09→20:03)
[2022-02-01] MEDS: *HR* Amiodarone 200 MG TABLET PO SCH (08:09)
[2022-02-01] MEDS: Insulin DETEMIR 100 UNIT/ML X5UNITS SUBQ SCH ×2 (08:12→20:04)
[2022-02-01] MEDS ORDERED: Furosemide 40 MG/4 ML VIAL IVP SCH ×2 (09:00→17:00)
[2022-02-01] MEDS ORDERED: Famotidine 20 MG/2 ML VIAL IVP ONE (10:15)
[2022-02-01] MEDS ORDERED: Acetaminophen IV 1,000 MG/100 ML BAG IVPB ONE (10:15)
[2022-02-01] MEDS ORDERED: Lidocaine -MPF 2% 5 ML VIAL ONE (11:13)
[2022-02-01] MEDS ORDERED: Insulin LISPRO 300 UNITS/3 ML VIAL SUBQ SCH (12:05)
[2022-02-01] MEDS ORDERED: Bupivacaine/Clonidine Syringe 20 ML, Syringe LUER-LOK 1 EACH TP ONE (13:30)
[2022-02-01] MEDS ORDERED: Dextrose Gel 15 GM/37.5 ML TUBE PO PRN ×2 (13:47)
[2022-02-01] MEDS ORDERED: Naloxone 0.4 MG/ML INJ IVP PRN (13:47)
[2022-02-01] MEDS ORDERED: Acetaminophen 325 MG TABLET PO PRN (13:47)
[2022-02-01] MEDS ORDERED: D5% in Water 1,000 ML IVC PRN (13:47)
[2022-02-01] MEDS ORDERED: *HR* Dextrose 50 % in Water (Syg) 50 ML SYRINGE IVP PRN (13:47)
[2022-02-01] MEDS ORDERED: Warfarin perPT PO PRN (13:47)
[2022-02-01] MEDS ORDERED: Ondansetron 4 MG/2 ML VIAL IVP PRN (13:47)
[2022-02-01] MEDS: Furosemide 40 MG/4 ML VIAL IVP SCH (16:54)
[2022-02-01] MEDS: *HR* HYDROcodone/Acet 5/325 mg TABLET PO PRN (17:51)
[2022-02-01] MEDS ORDERED: *HR* Warfarin 7.5 MG TABLET PO ONE ×2 (18:00)
[2022-02-01] MEDS ORDERED: Insulin DETEMIR 100 UNIT/ML X5UNITS SUBQ SCH (21:00)
[2022-02-02] MEDS: Cefepime HCl 2,000 MG in 0.9 % Sodium Chloride Mini Bag 100 ML IVPB SCH ×2 (00:35→09:50)
[2022-02-02] MEDS ORDERED: metroNIDAZOLE 500 MG TABLET PO SCH (09:00)
[2022-02-02] MEDS: Insulin LISPRO 300 UNITS/3 ML VIAL SUBQ SCH ×7 (09:46→20:41)
[2022-02-02] MEDS: Insulin DETEMIR 100 UNIT/ML X5UNITS SUBQ SCH ×2 (09:46→20:41)
[2022-02-02] MEDS: Furosemide 40 MG/4 ML VIAL IVP SCH ×2 (09:50→16:46)
[2022-02-02] MEDS: *HR* Amiodarone 200 MG TABLET PO SCH (09:55)
[2022-02-02] MEDS: Metoprolol XL (24 HR) Succ 50 MG TAB.ER.24H PO SCH ×2 (09:56→20:49)
[2022-02-02 10:08] LABS: Basophils # 0.1 K/mcL (0.0-0.2); Basophils % 0.8 %; Eosinophils # 0.2 K/mcL (0.0-0.6); Eosinophils % 2.1 %; Immature Granulocytes % 0.6 % (0-4); Lymphocytes # 1.2 K/mcL (0.6-4.6); Lymphocytes % 12.9 %; Mean Corpuscular Hemoglobin 29.6 pg (28.0-33.3); Mean Corpuscular Volume 102.1 fL (83.0-100.0); Mean Platelet Volume 10.6 fL (9.4-12.4); Monocytes % 10.1 %; Platelet Count 344 K/mcL (140-400); Red Blood Count 5.75 M/mcL (4.19-5.50); Segmented Neutrophils % 73.5 %; White Blood Count 9.5 K/mcL (4.3-11.1)
[2022-02-02 10:08] LABS: ABG Base Excess 5 mEq/L (-2 to 3); ABG HCO3 36 mEq/L (21-27); ABG Oxygen Saturation 97 % (95-98); ABG PCO2 74 mmHg (35-45); ABG PH 7.29 pH Units (7.32-7.45); ABG PO2 107 mmHg (85-104); ABG TCO2 38 mEq/L (20-26)
[2022-02-02 10:17] LABS: INR 1.5; Prothrombin Time 16.4 Seconds (9.4-12.1)
[2022-02-02 10:25] LABS: BUN/Creatinine Ratio 24 (6-26); Blood Urea Nitrogen 29 mg/dL (6-20); Calcium 8.4 mg/dL (8.6-10.3); Carbon Dioxide 39 mEq/L (23-29); Chloride 97 mEq/L (98-107); Glucose 325 mg/dL (70-105); Hematocrit 58.7 % (37.5-50.1); Osmolality,Calculated 298 (280-300); Sodium 135 mEq/L (136-145); eGFR For African Americans > 60 (> 60); eGFR For Non-African Americans > 60 (> 60)
[2022-02-02 15:55] LABS: ABG Base Excess 6 mEq/L (-2 to 3); ABG HCO3 35 mEq/L (21-27); ABG Oxygen Saturation 99 % (95-98); ABG PCO2 63 mmHg (35-45); ABG PH 7.35 pH Units (7.32-7.45); ABG PO2 150 mmHg (85-104); ABG TCO2 37 mEq/L (20-26)
[2022-02-02] MEDS: Piperacillin/Tazobactam 3.375 GM in 0.9 % Sodium Chloride Mini Bag 100 ML IVPB SCH (16:39)
[2022-02-02] MEDS ORDERED: *HR* Warfarin 5 MG TABLET PO ONE ×2 (18:00→20:15)
[2022-02-03 04:15] LABS: VBG Ionized Calcium 0.96 mmol/L (1.15-1.35)
[2022-02-03 04:24] LABS: Basophils # 0.1 K/mcL (0.0-0.2); Basophils % 0.8 %; Eosinophils # 0.3 K/mcL (0.0-0.6); Eosinophils % 2.5 %; Hemoglobin 16.5 g/dL (12.9-16.9); Immature Granulocytes % 0.8 % (0-4); Lymphocytes # 1.1 K/mcL (0.6-4.6); Lymphocytes % 10.5 %; Mean Corpuscular HGB Conc 29.4 g/dL (31.6-35.5); Mean Corpuscular Hemoglobin 29.1 pg (28.0-33.3); Mean Corpuscular Volume 98.9 fL (83.0-100.0); Mean Platelet Volume 11.3 fL (9.4-12.4); Monocytes # 1.1 K/mcL (0.0-1.3); Monocytes % 10.1 %; Neutrophils # 7.8 K/mcL (1.6-8.9); Platelet Count 265 K/mcL (140-400); Red Blood Count 5.67 M/mcL (4.19-5.50); Red Cell Distribution Width 15.5 % (11.5-14.5); Segmented Neutrophils % 75.3 %; White Blood Count 10.4 K/mcL (4.3-11.1)
[2022-02-03 04:31] LABS: Hematocrit 56.1 % (37.5-50.1)
[2022-02-03 04:33] LABS: BUN/Creatinine Ratio 27 (6-26); Blood Urea Nitrogen 25 mg/dL (6-20); Carbon Dioxide 33 mEq/L (23-29); Chloride 99 mEq/L (98-107); Glucose 218 mg/dL (70-105); Osmolality,Calculated 291 (280-300); Potassium 4.3 mEq/L (3.5-5.1); Sodium 135 mEq/L (136-145); eGFR For African Americans > 60 (> 60); eGFR For Non-African Americans > 60 (> 60)
[2022-02-03 06:53] LABS: Prothrombin Time 20.2 Seconds (9.4-12.1)
[2022-02-03 06:54] LABS: INR 1.8
[2022-02-03] MEDS ORDERED: Calcium Gluconate 1gm/50mL 1 GM/50 ML BAG IVPB ONE (07:29)
[2022-02-03] MEDS: Piperacillin/Tazobactam 3.375 GM in 0.9 % Sodium Chloride Mini Bag 100 ML IVPB SCH ×3 (07:37→16:33)
[2022-02-03] MEDS: Furosemide 40 MG/4 ML VIAL IVP SCH ×2 (07:37→16:33)
[2022-02-03] MEDS: Insulin LISPRO 300 UNITS/3 ML VIAL SUBQ SCH ×7 (07:38→20:21)
[2022-02-03] MEDS: Metoprolol XL (24 HR) Succ 50 MG TAB.ER.24H PO SCH ×2 (08:03→20:22)
[2022-02-03] MEDS: *HR* Amiodarone 200 MG TABLET PO SCH (08:03)
[2022-02-03] MEDS: Insulin DETEMIR 100 UNIT/ML X5UNITS SUBQ SCH (08:03)
[2022-02-03] MEDS: *HR* HYDROcodone/Acet 5/325 mg TABLET PO PRN (12:31)
[2022-02-03] MEDS ORDERED: *HR* Warfarin 5 MG TABLET PO ONE (18:00)
[2022-02-03] MEDS ORDERED: Insulin DETEMIR 100 UNIT/ML X5UNITS SUBQ SCH (21:00)
[2022-02-04] MEDS: Piperacillin/Tazobactam 3.375 GM in 0.9 % Sodium Chloride Mini Bag 100 ML IVPB SCH ×4 (00:25→23:43)
[2022-02-04 02:32] LABS: Basophils # 0.1 K/mcL (0.0-0.2); Basophils % 0.6 %; Eosinophils # 0.3 K/mcL (0.0-0.6); Eosinophils % 2.6 %; Hematocrit 54.1 % (37.5-50.1); Hemoglobin 16.2 g/dL (12.9-16.9); Immature Granulocytes % 0.5 % (0-4); Lymphocytes % 9.5 %; Mean Corpuscular HGB Conc 29.9 g/dL (31.6-35.5); Mean Corpuscular Hemoglobin 29.3 pg (28.0-33.3); Mean Platelet Volume 10.3 fL (9.4-12.4); Monocytes % 9.5 %; Neutrophils # 8.5 K/mcL (1.6-8.9); Platelet Count 310 K/mcL (140-400); Red Blood Count 5.52 M/mcL (4.19-5.50); Red Cell Distribution Width 15.4 % (11.5-14.5); Segmented Neutrophils % 77.3 %
[2022-02-04 02:38] LABS: VBG Ionized Calcium 1.03 mmol/L (1.15-1.35)
[2022-02-04 02:41] LABS: Prothrombin Time 21.8 Seconds (9.4-12.1)
[2022-02-04 06:42] LABS: BUN/Creatinine Ratio 26 (6-26); Blood Urea Nitrogen 22 mg/dL (6-20); Calcium 8.2 mg/dL (8.6-10.3); Carbon Dioxide 40 mEq/L (23-29); Chloride 94 mEq/L (98-107); Glucose 139 mg/dL (70-105); Osmolality,Calculated 288 (280-300); Potassium 3.9 mEq/L (3.5-5.1); Sodium 136 mEq/L (136-145); eGFR For African Americans > 60 (> 60); eGFR For Non-African Americans > 60 (> 60)
[2022-02-04] MEDS ORDERED: Calcium Gluconate 1gm/50mL 1 GM/50 ML BAG IVPB ONE (07:31)
[2022-02-04 08:28] LABS: ABG Base Excess 8 mEq/L (-2 to 3); ABG HCO3 35 mEq/L (21-27); ABG Oxygen Saturation 89 % (95-98); ABG PCO2 53 mmHg (35-45); ABG PH 7.43 pH Units (7.32-7.45); ABG PO2 56 mmHg (85-104); ABG TCO2 37 mEq/L (20-26)
[2022-02-04] MEDS: Insulin LISPRO 300 UNITS/3 ML VIAL SUBQ SCH ×10 (08:42→22:30)
[2022-02-04] MEDS: *HR* HYDROcodone/Acet 5/325 mg TABLET PO PRN ×2 (08:44→17:11)
[2022-02-04] MEDS: Insulin DETEMIR 100 UNIT/ML X5UNITS SUBQ SCH ×2 (08:44→21:21)
[2022-02-04] MEDS: *HR* Amiodarone 200 MG TABLET PO SCH (08:44)
[2022-02-04] MEDS: Metoprolol XL (24 HR) Succ 50 MG TAB.ER.24H PO SCH ×2 (08:44→20:34)
[2022-02-04] MEDS: Furosemide 40 MG/4 ML VIAL IVP SCH (08:44)
[2022-02-04] MEDS ORDERED: acetaZOLAMIDE 250 MG in Water for inj. (sterile) 2.5 ML IVP SCH (11:30)
[2022-02-04] MEDS: acetaZOLAMIDE 250 MG in Water for inj. (sterile) 2.5 ML IVP SCH (12:08)
[2022-02-04] MEDS ORDERED: *HR* Warfarin 5 MG TABLET PO ONE ×2 (18:00)
[2022-02-04] MEDS: Vancomycin 1,750 MG/517.5 ML IV.SOLN IVPB SCH (22:29)
[2022-02-05] MEDS: Piperacillin/Tazobactam 3.375 GM in 0.9 % Sodium Chloride Mini Bag 100 ML IVPB SCH ×3 (08:22→20:35)
[2022-02-05] MEDS: acetaZOLAMIDE 250 MG in Water for inj. (sterile) 2.5 ML IVP SCH (08:22)
[2022-02-05] MEDS: Metoprolol XL (24 HR) Succ 50 MG TAB.ER.24H PO SCH ×2 (08:23→20:36)
[2022-02-05] MEDS: Insulin LISPRO 300 UNITS/3 ML VIAL SUBQ SCH ×7 (08:23→21:44)
[2022-02-05] MEDS: Insulin DETEMIR 100 UNIT/ML X5UNITS SUBQ SCH ×2 (08:23→20:35)
[2022-02-05] MEDS: *HR* Amiodarone 200 MG TABLET PO SCH (08:24)
[2022-02-05 12:10] LABS: VBG Ionized Calcium 1.03 mmol/L (1.15-1.35)
[2022-02-05] MEDS: Vancomycin 1,500 MG/265 ML IV.SOLN IVPB SCH (12:14)
[2022-02-05 12:18] LABS: INR 1.8; Prothrombin Time 19.9 Seconds (9.4-12.1)
[2022-02-05 14:57] LABS: BUN/Creatinine Ratio 24 (6-26); Blood Urea Nitrogen 20 mg/dL (6-20); Calcium 8.6 mg/dL (8.6-10.3); Carbon Dioxide 36 mEq/L (23-29); Chloride 98 mEq/L (98-107); Glucose 146 mg/dL (70-105); Osmolality,Calculated 291 (280-300); Potassium 4.2 mEq/L (3.5-5.1); Sodium 138 mEq/L (136-145); eGFR For African Americans > 60 (> 60); eGFR For Non-African Americans > 60 (> 60)
[2022-02-05] MEDS ORDERED: *HR* Warfarin 5 MG TABLET PO ONE (18:00)
[2022-02-05] MEDS: *HR* HYDROcodone/Acet 5/325 mg TABLET PO PRN (20:35)
[2022-02-06] MEDS: Vancomycin 1,500 MG/265 ML IV.SOLN IVPB SCH ×2 (03:08→14:51)
[2022-02-06] MEDS: *HR* HYDROcodone/Acet 5/325 mg TABLET PO PRN ×2 (04:49→21:13)
[2022-02-06] MEDS: Piperacillin/Tazobactam 3.375 GM in 0.9 % Sodium Chloride Mini Bag 100 ML IVPB SCH ×3 (05:19→21:12)
[2022-02-06 06:50] LABS: Basophils # 0.1 K/mcL (0.0-0.2); Basophils % 0.7 %; Eosinophils # 0.3 K/mcL (0.0-0.6); Eosinophils % 2.8 %; Hematocrit 49.1 % (37.5-50.1); Hemoglobin 14.8 g/dL (12.9-16.9); Immature Granulocytes % 0.4 % (0-4); Lymphocytes # 0.8 K/mcL (0.6-4.6); Lymphocytes % 8.9 %; Mean Corpuscular HGB Conc 30.1 g/dL (31.6-35.5); Mean Corpuscular Hemoglobin 29.2 pg (28.0-33.3); Mean Corpuscular Volume 96.8 fL (83.0-100.0); Mean Platelet Volume 10.4 fL (9.4-12.4); Monocytes # 0.8 K/mcL (0.0-1.3); Monocytes % 8.2 %; Neutrophils # 7.2 K/mcL (1.6-8.9); Platelet Count 255 K/mcL (140-400); Red Blood Count 5.07 M/mcL (4.19-5.50); Red Cell Distribution Width 15.8 % (11.5-14.5); White Blood Count 9.2 K/mcL (4.3-11.1)
[2022-02-06 06:58] LABS: Prothrombin Time 21.9 Seconds (9.4-12.1)
[2022-02-06] MEDS: Insulin LISPRO 300 UNITS/3 ML VIAL SUBQ SCH ×7 (07:20→21:12)
[2022-02-06 08:00] LABS: BUN/Creatinine Ratio 25 (6-26); Blood Urea Nitrogen 21 mg/dL (6-20); Calcium 8.2 mg/dL (8.6-10.3); Carbon Dioxide 38 mEq/L (23-29); Chloride 99 mEq/L (98-107); Glucose 124 mg/dL (70-105); Magnesium 1.9 mg/dL (1.6-2.6); Osmolality,Calculated 292 (280-300); Sodium 139 mEq/L (136-145); eGFR For African Americans > 60 (> 60); eGFR For Non-African Americans > 60 (> 60)
[2022-02-06] MEDS: Spironolactone 25 MG TABLET PO SCH (09:17)
[2022-02-06] MEDS: Metoprolol XL (24 HR) Succ 50 MG TAB.ER.24H PO SCH ×2 (09:17→21:13)
[2022-02-06] MEDS: *HR* Amiodarone 200 MG TABLET PO SCH (09:18)
[2022-02-06] MEDS: Torsemide 20 MG TABLET PO SCH (09:18)
[2022-02-06] MEDS: *HR* Digoxin 0.5 MG/2 ML AMPUL IVP SCH ×3 (09:18→21:08)
[2022-02-06] MEDS: Insulin DETEMIR 100 UNIT/ML X5UNITS SUBQ SCH ×3 (09:19→21:12)
[2022-02-06] MEDS ORDERED: *HR* Warfarin 5 MG TABLET PO ONE (18:00)
[2022-02-07] MEDS: Vancomycin 1,500 MG/265 ML IV.SOLN IVPB SCH (03:48)
[2022-02-07 04:54] LABS: Basophils # 0.1 K/mcL (0.0-0.2); Basophils % 0.6 %; Eosinophils # 0.3 K/mcL (0.0-0.6); Eosinophils % 3.5 %; Hematocrit 53.3 % (37.5-50.1); Hemoglobin 15.6 g/dL (12.9-16.9); Immature Granulocytes % 0.4 % (0-4); Lymphocytes # 0.8 K/mcL (0.6-4.6); Lymphocytes % 9.6 %; Mean Corpuscular HGB Conc 29.3 g/dL (31.6-35.5); Mean Corpuscular Hemoglobin 28.8 pg (28.0-33.3); Mean Corpuscular Volume 98.5 fL (83.0-100.0); Mean Platelet Volume 10.5 fL (9.4-12.4); Monocytes # 0.8 K/mcL (0.0-1.3); Monocytes % 9.3 %; Neutrophils # 6.2 K/mcL (1.6-8.9); Platelet Count 278 K/mcL (140-400); Red Blood Count 5.41 M/mcL (4.19-5.50); Red Cell Distribution Width 15.6 % (11.5-14.5); Segmented Neutrophils % 76.6 %; White Blood Count 8.1 K/mcL (4.3-11.1)
[2022-02-07 04:56] LABS: INR 1.9; Prothrombin Time 21.3 Seconds (9.4-12.1)
[2022-02-07] MEDS ORDERED: Piperacillin/Tazobactam 3.375 GM in 0.9 % Sodium Chloride Mini Bag 100 ML IVPB SCH ×2 (05:00→08:00)
[2022-02-07 05:12] LABS: BUN/Creatinine Ratio 24 (6-26); Blood Urea Nitrogen 22 mg/dL (6-20); Calcium 8.4 mg/dL (8.6-10.3); Carbon Dioxide 38 mEq/L (23-29); Chloride 98 mEq/L (98-107); Glucose 309 mg/dL (70-105); Osmolality,Calculated 307 (280-300); Potassium 4.4 mEq/L (3.5-5.1); Sodium 141 mEq/L (136-145); eGFR For African Americans > 60 (> 60); eGFR For Non-African Americans > 60 (> 60)
[2022-02-07] MEDS: Insulin LISPRO 300 UNITS/3 ML VIAL SUBQ SCH ×7 (05:17→21:40)
[2022-02-07] MEDS: *HR* HYDROcodone/Acet 5/325 mg TABLET PO PRN ×2 (06:44→21:44)
[2022-02-07] MEDS: Torsemide 20 MG TABLET PO SCH (07:52)
[2022-02-07] MEDS: Metoprolol XL (24 HR) Succ 50 MG TAB.ER.24H PO SCH ×2 (07:52→21:39)
[2022-02-07] MEDS: *HR* Amiodarone 200 MG TABLET PO SCH (07:53)
[2022-02-07] MEDS: Spironolactone 25 MG TABLET PO SCH (07:53)
[2022-02-07] MEDS: Insulin DETEMIR 100 UNIT/ML X5UNITS SUBQ SCH ×2 (07:53→21:40)
[2022-02-07] MEDS ORDERED: Lidocaine -MPF 2% 5 ML VIAL ONE (11:38)
[2022-02-07] MEDS ORDERED: dexmedeTOMIDine in 0.9 % NaCL 80 MCG/20 ML MLS ONE (11:52)
[2022-02-07] MEDS ORDERED: Ketamine HCL *QUVA* 50mg (1mL) SYRINGE ONE (11:52)
[2022-02-07] MEDS ORDERED: Bupivacaine/Clonidine Syringe 20 ML, Syringe LUER-LOK 1 EACH TP ONE (12:00)
[2022-02-07] MEDS ORDERED: D5% in Water 1,000 ML IVC PRN (13:37)
[2022-02-07] MEDS ORDERED: Dextrose Gel 15 GM/37.5 ML TUBE PO PRN ×2 (13:37)
[2022-02-07] MEDS ORDERED: Ondansetron 4 MG/2 ML VIAL IVP PRN (13:37)
[2022-02-07] MEDS ORDERED: Naloxone 0.4 MG/ML INJ IVP PRN (13:37)
[2022-02-07] MEDS ORDERED: *HR* Dextrose 50 % in Water (Syg) 50 ML SYRINGE IVP PRN (13:37)
[2022-02-07] MEDS ORDERED: Warfarin perPT PO PRN (13:37)
[2022-02-07] MEDS ORDERED: Acetaminophen 325 MG TABLET PO PRN (13:37)
[2022-02-07] MEDS ORDERED: Vancomycin 1,500 MG/265 ML IV.SOLN IVPB SCH (15:00)
[2022-02-07] MEDS: Piperacillin/Tazobactam 3.375 GM in 0.9 % Sodium Chloride Mini Bag 100 ML IVPB SCH (16:55)
[2022-02-07] MEDS ORDERED: Insulin LISPRO 300 UNITS/3 ML VIAL SUBQ SCH (17:00)
[2022-02-07] MEDS: DAPTOmycin 800 MG in 0.9 % Sodium Chloride 100 ML IVPB SCH (17:53)
[2022-02-07] MEDS ORDERED: *HR* Warfarin 7.5 MG TABLET PO ONE ×2 (18:00)
[2022-02-08] MEDS: Piperacillin/Tazobactam 3.375 GM in 0.9 % Sodium Chloride Mini Bag 100 ML IVPB SCH ×4 (00:37→22:45)
[2022-02-08 04:55] LABS: Hematocrit 52.4 % (37.5-50.1); Hemoglobin 15.3 g/dL (12.9-16.9); Mean Corpuscular HGB Conc 29.2 g/dL (31.6-35.5); Mean Corpuscular Hemoglobin 29.3 pg (28.0-33.3); Mean Corpuscular Volume 100.2 fL (83.0-100.0); Mean Platelet Volume 10.5 fL (9.4-12.4); Platelet Count 252 K/mcL (140-400); Red Blood Count 5.23 M/mcL (4.19-5.50); Red Cell Distribution Width 15.5 % (11.5-14.5); White Blood Count 8.1 K/mcL (4.3-11.1)
[2022-02-08 05:04] LABS: INR 2.1; Prothrombin Time 23.4 Seconds (9.4-12.1)
[2022-02-08 05:14] LABS: BUN/Creatinine Ratio 18 (6-26); Blood Urea Nitrogen 17 mg/dL (6-20); Calcium 8.5 mg/dL (8.6-10.3); Carbon Dioxide 37 mEq/L (23-29); Chloride 97 mEq/L (98-107); Glucose 398 mg/dL (70-105); Osmolality,Calculated 302 (280-300); Potassium 4.5 mEq/L (3.5-5.1); Sodium 137 mEq/L (136-145); eGFR For African Americans > 60 (> 60); eGFR For Non-African Americans > 60 (> 60)
[2022-02-08] MEDS: Insulin LISPRO 300 UNITS/3 ML VIAL SUBQ SCH ×7 (08:18→22:46)
[2022-02-08] MEDS: Insulin DETEMIR 100 UNIT/ML X5UNITS SUBQ SCH ×2 (08:19→22:45)
[2022-02-08] MEDS: *HR* Amiodarone 200 MG TABLET PO SCH (08:19)
[2022-02-08] MEDS: Torsemide 20 MG TABLET PO SCH (08:19)
[2022-02-08] MEDS: Spironolactone 25 MG TABLET PO SCH (08:19)
[2022-02-08] MEDS: Metoprolol XL (24 HR) Succ 50 MG TAB.ER.24H PO SCH (08:19)
[2022-02-08] MEDS: *HR* HYDROcodone/Acet 5/325 mg TABLET PO PRN ×2 (12:01→22:45)
[2022-02-08] MEDS: DAPTOmycin 800 MG in 0.9 % Sodium Chloride 100 ML IVPB SCH (17:50)
[2022-02-08] MEDS ORDERED: *HR* Warfarin 7.5 MG TABLET PO ONE (18:00)
[2022-02-08] MEDS ORDERED: *HR* Warfarin 5 MG TABLET PO ONE (18:00)
[2022-02-09 05:18] LABS: Hematocrit 49.4 % (37.5-50.1); Hemoglobin 14.5 g/dL (12.9-16.9); Mean Corpuscular HGB Conc 29.4 g/dL (31.6-35.5); Mean Corpuscular Hemoglobin 29.3 pg (28.0-33.3); Mean Corpuscular Volume 99.8 fL (83.0-100.0); Mean Platelet Volume 10.5 fL (9.4-12.4); Platelet Count 257 K/mcL (140-400); Red Blood Count 4.95 M/mcL (4.19-5.50); Red Cell Distribution Width 15.3 % (11.5-14.5); White Blood Count 7.9 K/mcL (4.3-11.1)
[2022-02-09 05:25] LABS: INR 2.5; Prothrombin Time 27.2 Seconds (9.4-12.1)
[2022-02-09 05:34] LABS: BUN/Creatinine Ratio 19 (6-26); Blood Urea Nitrogen 17 mg/dL (6-20); Calcium 8.3 mg/dL (8.6-10.3); Carbon Dioxide 43 mEq/L (23-29); Chloride 98 mEq/L (98-107); Glucose 231 mg/dL (70-105); Osmolality,Calculated 301 (280-300); Sodium 141 mEq/L (136-145); eGFR For African Americans > 60 (> 60); eGFR For Non-African Americans > 60 (> 60)
[2022-02-09] MEDS: carvediloL 25 MG TABLET PO SCH ×2 (08:39→17:22)
[2022-02-09] MEDS: *HR* Amiodarone 200 MG TABLET PO SCH (08:39)
[2022-02-09] MEDS: Spironolactone 25 MG TABLET PO SCH (08:39)
[2022-02-09] MEDS: Torsemide 20 MG TABLET PO SCH (08:39)
[2022-02-09] MEDS: Insulin LISPRO 300 UNITS/3 ML VIAL SUBQ SCH ×6 (08:40→17:23)
[2022-02-09] MEDS: Piperacillin/Tazobactam 3.375 GM in 0.9 % Sodium Chloride Mini Bag 100 ML IVPB SCH ×2 (08:40→16:06)
[2022-02-09] MEDS: Insulin DETEMIR 100 UNIT/ML X5UNITS SUBQ SCH ×2 (08:41→21:28)
[2022-02-09 11:55] VITALS: BP 125/92; PULSE 90; TEMP 98.4
[2022-02-09] MEDS: *HR* HYDROcodone/Acet 5/325 mg TABLET PO PRN ×2 (12:47→21:28)
[2022-02-09] MEDS: DAPTOmycin 800 MG in 0.9 % Sodium Chloride 100 ML IVPB SCH (15:05)
[2022-02-09 15:27] VITALS: O2SAT 93
[2022-02-09] MEDS ORDERED: *HR* Warfarin 2.5 MG TABLET PO ONE (18:00)
[2022-02-09] MEDS ORDERED: *HR* Warfarin 5 MG TABLET PO ONE (18:00)
== END 2022-02-09 22:33 | disposition home or self-care (01) | DRG 710 ==
LOC: EMEROOARM 18:58 → SUATTDRO 01-30 05:41 → 2NNU 01-30 05:41 → 2ANU 02-04 18:54
PROVIDERS: ADMIT Family Medicine; ATTEND Internal Medicine

== ENCOUNTER 2022-02-23 19:06 | Inpatient (IN) ==
[2022-02-24] MEDS ORDERED: Naloxone 0.4 MG/ML INJ IVP PRN (02:05)
[2022-02-24] MEDS: Furosemide 40 MG/4 ML VIAL IVP SCH ×2 (03:25→16:32)
[2022-02-24] MEDS ORDERED: *HR* Metoprolol 5 MG/5 ML VIAL IVP ONE ×2 (03:46→05:44)
[2022-02-24 04:18] LABS: Basophils % 0.2 %; Hematocrit 48.4 % (37.5-50.1); Hemoglobin 14.9 g/dL (12.9-16.9); Immature Granulocytes % 0.6 % (0-4); Lymphocytes # 0.3 K/mcL (0.6-4.6); Lymphocytes % 3.7 %; Mean Corpuscular HGB Conc 30.8 g/dL (31.6-35.5); Mean Corpuscular Hemoglobin 29.6 pg (28.0-33.3); Mean Platelet Volume 10.6 fL (9.4-12.4); Monocytes # 0.2 K/mcL (0.0-1.3); Monocytes % 1.9 %; Neutrophils # 8.3 K/mcL (1.6-8.9); Platelet Count 265 K/mcL (140-400); Red Blood Count 5.04 M/mcL (4.19-5.50); Red Cell Distribution Width 15.9 % (11.5-14.5); Segmented Neutrophils % 93.6 %; White Blood Count 8.8 K/mcL (4.3-11.1)
[2022-02-24 04:21] LABS: Influenza A PCR Negative (Negative); Influenza B PCR Negative (Negative); Resp. Syncytial Virus PCR Negative (Negative)
[2022-02-24 04:24] LABS: VBG HCO3 39 mEq/L (21-27); VBG PCO2 64 mmHg (41-51); VBG PH 7.39 pH Units (7.32-7.42); VBG PO2 179 mmHg (25-50)
[2022-02-24 04:32] LABS: SARS-CoV-2 by PCR (In House) Negative (Negative)
[2022-02-24 04:33] LABS: Albumin 3.2 g/dL (3.5-5.7); Albumin/Globulin Ratio 0.8 (1.1-2.2); Bilirubin,Total 0.6 mg/dL (0.3-1.0); Globulin 3.8 g/dL (2.4-3.5); Magnesium 1.6 mg/dL (1.6-2.6); Potassium 4.1 mEq/L (3.5-5.1)
[2022-02-24 04:38] LABS: INR 1.3
[2022-02-24 04:40] LABS: Activated Partial Thrombo Time 30.5 Seconds (26.0-36.0)
[2022-02-24] MEDS: Doxycycline 100 MG in 0.9 % Sodium Chloride Mini Bag 100 ML IVPB SCH ×2 (05:38→16:37)
[2022-02-24] MEDS ORDERED: Dextrose Gel 15 GM/37.5 ML TUBE PO PRN ×2 (05:46)
[2022-02-24] MEDS ORDERED: D5% in Water 1,000 ML IVC PRN (05:46)
[2022-02-24] MEDS ORDERED: *HR* Dextrose 50 % in Water (Syg) 50 ML SYRINGE IVP PRN (05:46)
[2022-02-24] MEDS: *HR* Amiodarone 200 MG TABLET PO SCH (06:18)
[2022-02-24] MEDS: Metoprolol XL (24 HR) Succ 50 MG TAB.ER.24H PO SCH (06:18)
[2022-02-24] MEDS: levoFLOXacin 750 MG/150 ML 750 MG/150 ML BAG IVPB SCH (08:05)
[2022-02-24] MEDS: Spironolactone 25 MG TABLET PO SCH (08:05)
[2022-02-24] MEDS: Insulin LISPRO 300 UNITS/3 ML VIAL SUBQ SCH ×4 (08:11→21:28)
[2022-02-24] MEDS ORDERED: *HR* Amiodarone 200 MG TABLET PO SCH (09:00)
[2022-02-24] MEDS ORDERED: Metoprolol XL (24 HR) Succ 50 MG TAB.ER.24H PO SCH (09:00)
[2022-02-24] MEDS: *HR* HYDROcodone/Acet 5/325 mg TABLET PO PRN ×2 (12:22→21:29)
[2022-02-24] MEDS ORDERED: *HR* Warfarin 5 MG TABLET PO ONE (18:00)
[2022-02-24] MEDS ORDERED: Warfarin perPT PO PRN (18:00)
[2022-02-24] MEDS ORDERED: Insulin LISPRO 300 UNITS/3 ML VIAL SUBQ STA (18:10)
[2022-02-25] MEDS: Doxycycline 100 MG in 0.9 % Sodium Chloride Mini Bag 100 ML IVPB SCH ×2 (06:20→17:28)
[2022-02-25] MEDS: *HR* Amiodarone 200 MG TABLET PO SCH (08:51)
[2022-02-25] MEDS: Metoprolol XL (24 HR) Succ 50 MG TAB.ER.24H PO SCH (08:51)
[2022-02-25] MEDS: levoFLOXacin 750 MG/150 ML 750 MG/150 ML BAG IVPB SCH (08:51)
[2022-02-25] MEDS: Spironolactone 25 MG TABLET PO SCH (08:52)
[2022-02-25] MEDS: Furosemide 40 MG/4 ML VIAL IVP SCH ×2 (08:52→17:29)
[2022-02-25] MEDS: Insulin LISPRO 300 UNITS/3 ML VIAL SUBQ SCH ×4 (08:52→22:10)
[2022-02-25] MEDS: *HR* HYDROcodone/Acet 5/325 mg TABLET PO PRN ×2 (09:03→17:40)
[2022-02-25] MEDS ORDERED: Fluconazole 40 MG/ML MLS PO PRN (11:54)
[2022-02-25] MEDS ORDERED: Fluconazole 100 MG TABLET PO PRN (12:15)
[2022-02-25 14:08] LABS: Hematocrit 47.5 % (37.5-50.1); Hemoglobin 14.3 g/dL (12.9-16.9); Mean Corpuscular HGB Conc 30.1 g/dL (31.6-35.5); Mean Corpuscular Hemoglobin 29.7 pg (28.0-33.3); Mean Corpuscular Volume 98.5 fL (83.0-100.0); Mean Platelet Volume 10.2 fL (9.4-12.4); Platelet Count 265 K/mcL (140-400); Red Blood Count 4.82 M/mcL (4.19-5.50); Red Cell Distribution Width 16.8 % (11.5-14.5); White Blood Count 10.5 K/mcL (4.3-11.1)
[2022-02-25 14:21] LABS: INR 1.4; Prothrombin Time 15.7 Seconds (9.4-12.1)
[2022-02-25 14:30] LABS: Calcium 8.5 mg/dL (8.6-10.3); Potassium 3.9 mEq/L (3.5-5.1)
[2022-02-25] MEDS ORDERED: *HR* Warfarin 10 MG TABLET PO ONE (18:00)
[2022-02-26] MEDS: Doxycycline 100 MG in 0.9 % Sodium Chloride Mini Bag 100 ML IVPB SCH (05:18)
[2022-02-26] MEDS: Metoprolol XL (24 HR) Succ 50 MG TAB.ER.24H PO SCH (08:13)
[2022-02-26] MEDS: Spironolactone 25 MG TABLET PO SCH (08:13)
[2022-02-26] MEDS: Furosemide 40 MG/4 ML VIAL IVP SCH ×2 (08:14→17:18)
[2022-02-26] MEDS: *HR* Amiodarone 200 MG TABLET PO SCH (08:18)
[2022-02-26] MEDS: levoFLOXacin 750 MG/150 ML 750 MG/150 ML BAG IVPB SCH (08:19)
[2022-02-26] MEDS: Insulin LISPRO 300 UNITS/3 ML VIAL SUBQ SCH ×4 (08:38→21:39)
[2022-02-26 12:08] LABS: Hematocrit 48.8 % (37.5-50.1); Hemoglobin 14.5 g/dL (12.9-16.9); Mean Corpuscular HGB Conc 29.7 g/dL (31.6-35.5); Mean Corpuscular Hemoglobin 29.5 pg (28.0-33.3); Mean Corpuscular Volume 99.2 fL (83.0-100.0); Mean Platelet Volume 10.1 fL (9.4-12.4); Platelet Count 249 K/mcL (140-400); Red Blood Count 4.92 M/mcL (4.19-5.50); Red Cell Distribution Width 16.6 % (11.5-14.5); White Blood Count 11.4 K/mcL (4.3-11.1)
[2022-02-26 12:22] LABS: INR 1.6; Prothrombin Time 17.5 Seconds (9.4-12.1)
[2022-02-26 12:46] LABS: BUN/Creatinine Ratio 29 (6-26); Blood Urea Nitrogen 33 mg/dL (6-20); Calcium 8.1 mg/dL (8.6-10.3); Carbon Dioxide > 45 mEq/L (23-29); Chloride 94 mEq/L (98-107); Glucose 332 mg/dL (70-105); Osmolality,Calculated 306 (280-300); Potassium 4.1 mEq/L (3.5-5.1); Sodium 138 mEq/L (136-145)
[2022-02-26] MEDS: DAPTOmycin 900 MG in 0.9 % Sodium Chloride 100 ML IVPB SCH (17:14)
[2022-02-26] MEDS: metroNIDAZOLE 500 MG TABLET PO SCH ×2 (17:18→21:38)
[2022-02-26] MEDS: *HR* HYDROcodone/Acet 5/325 mg TABLET PO PRN ×2 (17:18→23:59)
[2022-02-26] MEDS ORDERED: Insulin DETEMIR 100 UNIT/ML X5UNITS SUBQ ONE (17:33)
[2022-02-26] MEDS ORDERED: *HR* Warfarin 5 MG TABLET PO ONE (18:00)
[2022-02-26] MEDS: Insulin DETEMIR 100 UNIT/ML X5UNITS SUBQ SCH (21:40)
[2022-02-27] MEDS: Nystatin POWDER 30 GM BOTTLE TP SCH ×4 (04:00→21:37)
[2022-02-27] MEDS: Insulin LISPRO 300 UNITS/3 ML VIAL SUBQ SCH ×5 (08:14→21:36)
[2022-02-27] MEDS: Insulin DETEMIR 100 UNIT/ML X5UNITS SUBQ SCH ×2 (08:14→21:40)
[2022-02-27] MEDS: Spironolactone 25 MG TABLET PO SCH (08:14)
[2022-02-27] MEDS: carvediloL 25 MG TABLET PO SCH ×2 (08:14→17:11)
[2022-02-27] MEDS: *HR* Amiodarone 200 MG TABLET PO SCH (08:15)
[2022-02-27] MEDS: levoFLOXacin 750 MG/150 ML 750 MG/150 ML BAG IVPB SCH (08:15)
[2022-02-27] MEDS: Furosemide 40 MG/4 ML VIAL IVP SCH ×2 (08:15→17:11)
[2022-02-27] MEDS: metroNIDAZOLE 500 MG TABLET PO SCH ×3 (08:15→21:34)
[2022-02-27 11:41] LABS: Hematocrit 46.8 % (37.5-50.1); Hemoglobin 13.7 g/dL (12.9-16.9); Mean Corpuscular HGB Conc 29.3 g/dL (31.6-35.5); Mean Corpuscular Hemoglobin 29.3 pg (28.0-33.3); Mean Platelet Volume 10.2 fL (9.4-12.4); Platelet Count 219 K/mcL (140-400); Red Blood Count 4.68 M/mcL (4.19-5.50); Red Cell Distribution Width 16.7 % (11.5-14.5); White Blood Count 10.4 K/mcL (4.3-11.1)
[2022-02-27 11:47] LABS: Prothrombin Time 21.8 Seconds (9.4-12.1)
[2022-02-27 12:12] LABS: BUN/Creatinine Ratio 33 (6-26); Blood Urea Nitrogen 31 mg/dL (6-20); Calcium 8.4 mg/dL (8.6-10.3); Carbon Dioxide 41 mEq/L (23-29); Chloride 95 mEq/L (98-107); Glucose 300 mg/dL (70-105); Osmolality,Calculated 306 (280-300); Potassium 4.2 mEq/L (3.5-5.1); Sodium 139 mEq/L (136-145)
[2022-02-27] MEDS: *HR* HYDROcodone/Acet 5/325 mg TABLET PO PRN ×2 (14:32→21:34)
[2022-02-27] MEDS: DAPTOmycin 900 MG in 0.9 % Sodium Chloride 100 ML IVPB SCH (15:45)
[2022-02-27] MEDS ORDERED: *HR* Warfarin 5 MG TABLET PO ONE (18:00)
[2022-02-28 03:41] LABS: Hematocrit 46.3 % (37.5-50.1); Hemoglobin 13.7 g/dL (12.9-16.9); Mean Corpuscular HGB Conc 29.6 g/dL (31.6-35.5); Mean Corpuscular Hemoglobin 29.3 pg (28.0-33.3); Mean Corpuscular Volume 98.9 fL (83.0-100.0); Mean Platelet Volume 10.7 fL (9.4-12.4); Platelet Count 239 K/mcL (140-400); Red Blood Count 4.68 M/mcL (4.19-5.50); Red Cell Distribution Width 16.6 % (11.5-14.5)
[2022-02-28 03:59] LABS: INR 1.7; Prothrombin Time 19.4 Seconds (9.4-12.1)
[2022-02-28 04:07] LABS: BUN/Creatinine Ratio 36 (6-26); Blood Urea Nitrogen 32 mg/dL (6-20); Calcium 8.4 mg/dL (8.6-10.3); Carbon Dioxide > 45 mEq/L (23-29); Chloride 95 mEq/L (98-107); Glucose 248 mg/dL (70-105); Osmolality,Calculated 309 (280-300); Potassium 4.1 mEq/L (3.5-5.1); Sodium 142 mEq/L (136-145)
[2022-02-28 06:38] LABS: ABG Base Excess 14 mEq/L (-2 to 3); ABG HCO3 44 mEq/L (21-27); ABG Oxygen Saturation 77 % (95-98); ABG PCO2 76 mmHg (35-45); ABG PH 7.37 pH Units (7.32-7.45); ABG PO2 46 mmHg (85-104); ABG TCO2 46 mEq/L (20-26)
[2022-02-28] MEDS: Insulin DETEMIR 100 UNIT/ML X5UNITS SUBQ SCH ×2 (09:05→21:10)
[2022-02-28] MEDS: *HR* Amiodarone 200 MG TABLET PO SCH (09:05)
[2022-02-28] MEDS: Spironolactone 25 MG TABLET PO SCH (09:05)
[2022-02-28] MEDS: Linezolid 600 MG TABLET PO SCH ×2 (09:05→21:10)
[2022-02-28] MEDS: Furosemide 40 MG/4 ML VIAL IVP SCH ×2 (09:05→15:29)
[2022-02-28] MEDS: metroNIDAZOLE 500 MG TABLET PO SCH ×3 (09:05→21:10)
[2022-02-28] MEDS: carvediloL 25 MG TABLET PO SCH (09:05)
[2022-02-28] MEDS: Insulin LISPRO 300 UNITS/3 ML VIAL SUBQ SCH ×7 (09:07→21:09)
[2022-02-28] MEDS: levoFLOXacin 750 MG/150 ML 750 MG/150 ML BAG IVPB SCH (09:08)
[2022-02-28] MEDS: Nystatin POWDER 30 GM BOTTLE TP SCH ×3 (10:02→21:10)
[2022-02-28] MEDS: *HR* HYDROcodone/Acet 5/325 mg TABLET PO PRN (15:27)
[2022-02-28] MEDS ORDERED: *HR* Warfarin 7.5 MG TABLET PO ONE (18:00)
[2022-02-28] MEDS ORDERED: traZODone 50 MG TABLET PO SCH (22:00)
[2022-03-01] MEDS: *HR* HYDROcodone/Acet 5/325 mg TABLET PO PRN ×2 (04:01→16:47)
[2022-03-01 04:38] LABS: Hematocrit 45.9 % (37.5-50.1); Hemoglobin 13.6 g/dL (12.9-16.9); Mean Corpuscular HGB Conc 29.6 g/dL (31.6-35.5); Mean Corpuscular Hemoglobin 29.6 pg (28.0-33.3); Mean Corpuscular Volume 99.8 fL (83.0-100.0); Mean Platelet Volume 10.5 fL (9.4-12.4); Platelet Count 239 K/mcL (140-400); Red Cell Distribution Width 16.6 % (11.5-14.5); White Blood Count 8.4 K/mcL (4.3-11.1)
[2022-03-01 06:07] LABS: BUN/Creatinine Ratio 33 (6-26); Blood Urea Nitrogen 30 mg/dL (6-20); C-Reactive Protein 29 mg/L (Less than 10); Calcium 8.4 mg/dL (8.6-10.3); Chloride 91 mEq/L (98-107); Glucose 333 mg/dL (70-105); Osmolality,Calculated 309 (280-300); Potassium 4.3 mEq/L (3.5-5.1); Sodium 140 mEq/L (136-145)
[2022-03-01] MEDS: *HR* Metoprolol 5 MG/5 ML VIAL IVP PRN (07:24)
[2022-03-01] MEDS: metroNIDAZOLE 500 MG TABLET PO SCH ×3 (07:29→20:57)
[2022-03-01] MEDS: Spironolactone 25 MG TABLET PO SCH (07:29)
[2022-03-01] MEDS: *HR* Amiodarone 200 MG TABLET PO SCH (07:29)
[2022-03-01] MEDS: Furosemide 40 MG/4 ML VIAL IVP SCH (07:30)
[2022-03-01] MEDS: Nystatin POWDER 30 GM BOTTLE TP SCH ×3 (07:30→21:12)
[2022-03-01] MEDS: Linezolid 600 MG TABLET PO SCH ×2 (07:30→20:57)
[2022-03-01] MEDS: levoFLOXacin 750 MG/150 ML 750 MG/150 ML BAG IVPB SCH (07:34)
[2022-03-01] MEDS: carvediloL 25 MG TABLET PO SCH ×2 (07:41→17:13)
[2022-03-01 08:16] LABS: Carbon Dioxide > 45 mEq/L (23-29)
[2022-03-01] MEDS: Insulin LISPRO 300 UNITS/3 ML VIAL SUBQ SCH ×7 (09:22→20:58)
[2022-03-01] MEDS: Insulin DETEMIR 100 UNIT/ML X5UNITS SUBQ SCH ×2 (09:22→20:57)
[2022-03-01 10:34] LABS: INR 2.5; Prothrombin Time 27.4 Seconds (9.4-12.1)
[2022-03-01] MEDS ORDERED: *HR* Warfarin 2.5 MG TABLET PO ONE (18:00)
[2022-03-01] MEDS: Melatonin 3 MG TABLET PO SCH (20:57)
[2022-03-02] MEDS: *HR* HYDROcodone/Acet 5/325 mg TABLET PO PRN ×2 (01:49→16:39)
[2022-03-02 04:59] LABS: Hematocrit 46.1 % (37.5-50.1); Hemoglobin 13.9 g/dL (12.9-16.9); Immature Platelets 13.4 % (1.1-6.1); Mean Corpuscular HGB Conc 30.2 g/dL (31.6-35.5); Mean Corpuscular Hemoglobin 29.5 pg (28.0-33.3); Mean Corpuscular Volume 97.9 fL (83.0-100.0); Red Blood Count 4.71 M/mcL (4.19-5.50); Red Cell Distribution Width 16.3 % (11.5-14.5); White Blood Count 9.9 K/mcL (4.3-11.1)
[2022-03-02 05:07] LABS: INR 2.1; Prothrombin Time 22.9 Seconds (9.4-12.1)
[2022-03-02 05:28] LABS: BUN/Creatinine Ratio 37 (6-26); Blood Urea Nitrogen 30 mg/dL (6-20); Calcium 8.4 mg/dL (8.6-10.3); Carbon Dioxide > 45 mEq/L (23-29); Chloride 92 mEq/L (98-107); Glucose 173 mg/dL (70-105); Osmolality,Calculated 298 (280-300); Potassium 4.4 mEq/L (3.5-5.1); Sodium 139 mEq/L (136-145)
[2022-03-02] MEDS: *HR* Metoprolol 5 MG/5 ML VIAL IVP PRN (07:14)
[2022-03-02] MEDS: levoFLOXacin 750 MG TABLET PO SCH (08:12)
[2022-03-02] MEDS: Spironolactone 25 MG TABLET PO SCH (08:12)
[2022-03-02] MEDS: metroNIDAZOLE 500 MG TABLET PO SCH ×3 (08:12→21:45)
[2022-03-02] MEDS: *HR* Amiodarone 200 MG TABLET PO SCH (08:12)
[2022-03-02] MEDS: carvediloL 25 MG TABLET PO SCH ×2 (08:12→16:33)
[2022-03-02] MEDS: Linezolid 600 MG TABLET PO SCH ×2 (08:12→21:44)
[2022-03-02] MEDS: Furosemide 40 MG/4 ML VIAL IVP SCH (08:15)
[2022-03-02] MEDS: Insulin LISPRO 300 UNITS/3 ML VIAL SUBQ SCH ×7 (08:26→21:46)
[2022-03-02] MEDS: Insulin DETEMIR 100 UNIT/ML X5UNITS SUBQ SCH ×2 (09:53→21:47)
[2022-03-02] MEDS: Nystatin POWDER 30 GM BOTTLE TP SCH ×3 (09:55→21:54)
[2022-03-02] MEDS ORDERED: Warfarin perPT PO PRN (18:00)
[2022-03-02] MEDS ORDERED: *HR* Warfarin 5 MG TABLET PO ONE (18:00)
[2022-03-02] MEDS: Melatonin 3 MG TABLET PO SCH (21:45)
[2022-03-03 03:56] LABS: INR 2.1; Prothrombin Time 22.8 Seconds (9.4-12.1)
[2022-03-03] MEDS: *HR* HYDROcodone/Acet 5/325 mg TABLET PO PRN ×3 (06:05→20:35)
[2022-03-03] MEDS: *HR* Metoprolol 5 MG/5 ML VIAL IVP PRN (06:18)
[2022-03-03] MEDS: metroNIDAZOLE 500 MG TABLET PO SCH ×3 (07:50→20:35)
[2022-03-03] MEDS: Linezolid 600 MG TABLET PO SCH ×2 (07:50→20:35)
[2022-03-03] MEDS: Spironolactone 25 MG TABLET PO SCH (07:50)
[2022-03-03] MEDS: Insulin LISPRO 300 UNITS/3 ML VIAL SUBQ SCH ×7 (07:51→20:35)
[2022-03-03] MEDS: levoFLOXacin 750 MG TABLET PO SCH (07:51)
[2022-03-03] MEDS: *HR* Amiodarone 200 MG TABLET PO SCH (07:51)
[2022-03-03] MEDS: carvediloL 25 MG TABLET PO SCH ×2 (07:51→16:54)
[2022-03-03] MEDS: Furosemide 40 MG/4 ML VIAL IVP SCH (07:51)
[2022-03-03] MEDS: Nystatin POWDER 30 GM BOTTLE TP SCH ×3 (07:52→22:02)
[2022-03-03] MEDS: Insulin DETEMIR 100 UNIT/ML X5UNITS SUBQ SCH ×2 (08:18→20:35)
[2022-03-03 09:10] LABS: Basophils # 0.1 K/mcL (0.0-0.2); Basophils % 0.6 %; Eosinophils # 0.2 K/mcL (0.0-0.6); Eosinophils % 2.2 %; Hematocrit 43.2 % (37.5-50.1); Hemoglobin 13.2 g/dL (12.9-16.9); Immature Granulocytes % 0.2 % (0-4); Lymphocytes % 11.9 %; Mean Corpuscular HGB Conc 30.6 g/dL (31.6-35.5); Mean Corpuscular Hemoglobin 29.9 pg (28.0-33.3); Mean Platelet Volume 10.2 fL (9.4-12.4); Monocytes # 1.1 K/mcL (0.0-1.3); Monocytes % 13.2 %; Neutrophils # 5.8 K/mcL (1.6-8.9); Platelet Count 222 K/mcL (140-400); Red Blood Count 4.41 M/mcL (4.19-5.50); Red Cell Distribution Width 16.4 % (11.5-14.5); Segmented Neutrophils % 71.9 %; White Blood Count 8.1 K/mcL (4.3-11.1)
[2022-03-03 09:36] LABS: BUN/Creatinine Ratio 39 (6-26); Blood Urea Nitrogen 31 mg/dL (6-20); Calcium 8.4 mg/dL (8.6-10.3); Carbon Dioxide > 45 mEq/L (23-29); Chloride 91 mEq/L (98-107); Glucose 172 mg/dL (70-105); Osmolality,Calculated 301 (280-300); Potassium 4.4 mEq/L (3.5-5.1); Sodium 140 mEq/L (136-145)
[2022-03-03] MEDS ORDERED: *HR* Heparin 5,000 UNIT/ML VIAL IVP PRN ×2 (13:24)
[2022-03-03] MEDS ORDERED: *HR* Heparin 5,000 UNIT/ML VIAL IVP ONE (13:24)
[2022-03-03] MEDS: Heparin 25,000UNIT/250ML 1/2NS 25,000 UNIT/250 ML IV.SOLN IVC SCH (14:38)
[2022-03-03 15:24] LABS: Hematocrit 44.2 % (37.5-50.1); Hemoglobin 13.2 g/dL (12.9-16.9); Mean Corpuscular HGB Conc 29.9 g/dL (31.6-35.5); Mean Corpuscular Hemoglobin 29.5 pg (28.0-33.3); Mean Corpuscular Volume 98.7 fL (83.0-100.0); Mean Platelet Volume 10.5 fL (9.4-12.4); Platelet Count 237 K/mcL (140-400); Red Blood Count 4.48 M/mcL (4.19-5.50); Red Cell Distribution Width 16.5 % (11.5-14.5); White Blood Count 8.4 K/mcL (4.3-11.1)
[2022-03-03 15:31] LABS: Heparin anti-factor XA UFH < 0.04 IU/mL (0.30-0.70); Prothrombin Time 22.3 Seconds (9.4-12.1)
[2022-03-03] MEDS: Baclofen 10 MG TABLET PO PRN (16:54)
[2022-03-03] MEDS ORDERED: *HR* Warfarin 5 MG TABLET PO ONE (18:00)
[2022-03-03] MEDS: Melatonin 3 MG TABLET PO SCH (20:35)
[2022-03-04] MEDS: Heparin 25,000UNIT/250ML 1/2NS 25,000 UNIT/250 ML IV.SOLN IVC SCH ×2 (01:35→12:03)
[2022-03-04 02:04] LABS: Basophils # 0.1 K/mcL (0.0-0.2); Basophils % 0.8 %; Eosinophils # 0.2 K/mcL (0.0-0.6); Eosinophils % 2.4 %; Hematocrit 41.8 % (37.5-50.1); Hemoglobin 12.7 g/dL (12.9-16.9); Immature Granulocytes % 0.4 % (0-4); Lymphocytes % 14.4 %; Mean Corpuscular HGB Conc 30.4 g/dL (31.6-35.5); Mean Corpuscular Hemoglobin 29.6 pg (28.0-33.3); Mean Corpuscular Volume 97.4 fL (83.0-100.0); Mean Platelet Volume 11.7 fL (9.4-12.4); Monocytes % 13.8 %; Neutrophils # 4.9 K/mcL (1.6-8.9); Platelet Count 155 K/mcL (140-400); Red Blood Count 4.29 M/mcL (4.19-5.50); Red Cell Distribution Width 16.7 % (11.5-14.5); Segmented Neutrophils % 68.2 %; White Blood Count 7.2 K/mcL (4.3-11.1)
[2022-03-04 02:11] LABS: INR 2.1; Prothrombin Time 22.8 Seconds (9.4-12.1)
[2022-03-04 02:38] LABS: BUN/Creatinine Ratio 45 (6-26); Blood Urea Nitrogen 36 mg/dL (6-20); Calcium 8.3 mg/dL (8.6-10.3); Carbon Dioxide 45 mEq/L (23-29); Chloride 94 mEq/L (98-107); Glucose 180 mg/dL (70-105); Osmolality,Calculated 305 (280-300); Potassium 4.6 mEq/L (3.5-5.1); Sodium 141 mEq/L (136-145)
[2022-03-04] MEDS: *HR* HYDROcodone/Acet 5/325 mg TABLET PO PRN ×3 (03:26→16:39)
[2022-03-04] MEDS: *HR* Metoprolol 5 MG/5 ML VIAL IVP PRN (03:26)
[2022-03-04] MEDS: Insulin DETEMIR 100 UNIT/ML X5UNITS SUBQ SCH ×2 (08:35→20:31)
[2022-03-04] MEDS: Furosemide 40 MG/4 ML VIAL IVP SCH (08:35)
[2022-03-04] MEDS: Insulin LISPRO 300 UNITS/3 ML VIAL SUBQ SCH ×7 (08:36→20:16)
[2022-03-04] MEDS: *HR* Amiodarone 200 MG TABLET PO SCH (08:36)
[2022-03-04] MEDS: Spironolactone 25 MG TABLET PO SCH (08:36)
[2022-03-04] MEDS: metroNIDAZOLE 500 MG TABLET PO SCH ×3 (08:36→20:30)
[2022-03-04] MEDS: Linezolid 600 MG TABLET PO SCH ×2 (08:36→20:30)
[2022-03-04] MEDS: levoFLOXacin 750 MG TABLET PO SCH (08:36)
[2022-03-04] MEDS: Nystatin POWDER 30 GM BOTTLE TP SCH ×3 (08:37→20:31)
[2022-03-04] MEDS: carvediloL 25 MG TABLET PO SCH ×2 (08:37→17:56)
[2022-03-04] MEDS ORDERED: Furosemide 20 MG/2 ML VIAL IVP ONE (11:31)
[2022-03-04] MEDS ORDERED: *HR* Heparin 5,000 UNIT/ML VIAL IVP PRN (13:24)
[2022-03-04] MEDS ORDERED: *HR* Warfarin 5 MG TABLET PO ONE (18:00)
[2022-03-04] MEDS ORDERED: Warfarin perPT PO PRN (18:00)
[2022-03-04] MEDS: Melatonin 3 MG TABLET PO SCH (20:30)
[2022-03-04] MEDS: Baclofen 10 MG TABLET PO PRN (20:33)
[2022-03-05] MEDS: *HR* HYDROcodone/Acet 5/325 mg TABLET PO PRN ×4 (00:09→21:30)
[2022-03-05 03:00] LABS: Basophils # 0.1 K/mcL (0.0-0.2); Basophils % 0.8 %; Eosinophils # 0.2 K/mcL (0.0-0.6); Eosinophils % 2.2 %; Hematocrit 43.7 % (37.5-50.1); Immature Granulocytes % 0.3 % (0-4); Lymphocytes # 0.9 K/mcL (0.6-4.6); Lymphocytes % 12.1 %; Mean Corpuscular HGB Conc 29.7 g/dL (31.6-35.5); Mean Corpuscular Hemoglobin 29.3 pg (28.0-33.3); Mean Corpuscular Volume 98.6 fL (83.0-100.0); Mean Platelet Volume 10.5 fL (9.4-12.4); Monocytes # 0.9 K/mcL (0.0-1.3); Monocytes % 11.8 %; Neutrophils # 5.4 K/mcL (1.6-8.9); Platelet Count 209 K/mcL (140-400); Red Blood Count 4.43 M/mcL (4.19-5.50); Red Cell Distribution Width 16.4 % (11.5-14.5); Segmented Neutrophils % 72.8 %; White Blood Count 7.4 K/mcL (4.3-11.1)
[2022-03-05] MEDS: Acetaminophen 325 MG TABLET PO PRN ×2 (03:07→20:51)
[2022-03-05 03:09] LABS: INR 1.7; Prothrombin Time 19.4 Seconds (9.4-12.1)
[2022-03-05 03:27] LABS: BUN/Creatinine Ratio 40 (6-26); Blood Urea Nitrogen 34 mg/dL (6-20); Calcium 8.5 mg/dL (8.6-10.3); Carbon Dioxide > 45 mEq/L (23-29); Chloride 92 mEq/L (98-107); Glucose 192 mg/dL (70-105); Osmolality,Calculated 303 (280-300); Potassium 4.6 mEq/L (3.5-5.1); Sodium 140 mEq/L (136-145)
[2022-03-05] MEDS: Furosemide 40 MG/4 ML VIAL IVP SCH (09:22)
[2022-03-05] MEDS: Insulin LISPRO 300 UNITS/3 ML VIAL SUBQ SCH ×7 (09:22→21:31)
[2022-03-05] MEDS: Insulin DETEMIR 100 UNIT/ML X5UNITS SUBQ SCH ×2 (09:23→21:30)
[2022-03-05] MEDS: metroNIDAZOLE 500 MG TABLET PO SCH ×3 (09:23→21:30)
[2022-03-05] MEDS: Spironolactone 25 MG TABLET PO SCH (09:23)
[2022-03-05] MEDS: carvediloL 25 MG TABLET PO SCH ×2 (09:23→15:56)
[2022-03-05] MEDS: levoFLOXacin 750 MG TABLET PO SCH (09:24)
[2022-03-05] MEDS: *HR* Amiodarone 200 MG TABLET PO SCH (09:24)
[2022-03-05] MEDS: Linezolid 600 MG TABLET PO SCH ×2 (09:24→21:30)
[2022-03-05] MEDS: Nystatin POWDER 30 GM BOTTLE TP SCH ×3 (09:24→22:23)
[2022-03-05] MEDS ORDERED: Iopamidol - 370 500 ML MLS IVP ONE (13:07)
[2022-03-05] MEDS ORDERED: *HR* Heparin 5,000 UNIT/ML VIAL IVP PRN ×2 (14:31)
[2022-03-05] MEDS: Heparin 25,000UNIT/250ML 1/2NS 25,000 UNIT/250 ML IV.SOLN IVC SCH ×2 (15:59→20:37)
[2022-03-05] MEDS ORDERED: *HR* Warfarin 5 MG TABLET PO ONE (18:00)
[2022-03-05] MEDS: Melatonin 3 MG TABLET PO SCH (21:30)
[2022-03-06] MEDS: Heparin 25,000UNIT/250ML 1/2NS 25,000 UNIT/250 ML IV.SOLN IVC SCH ×3 (02:42→22:41)
[2022-03-06 05:43] LABS: Basophils # 0.1 K/mcL (0.0-0.2); Eosinophils # 0.2 K/mcL (0.0-0.6); Eosinophils % 2.2 %; Hematocrit 43.2 % (37.5-50.1); Hemoglobin 12.8 g/dL (12.9-16.9); Immature Granulocytes % 0.7 % (0-4); Lymphocytes # 1.3 K/mcL (0.6-4.6); Lymphocytes % 18.1 %; Mean Corpuscular HGB Conc 29.6 g/dL (31.6-35.5); Mean Corpuscular Hemoglobin 29.2 pg (28.0-33.3); Mean Corpuscular Volume 98.6 fL (83.0-100.0); Mean Platelet Volume 10.4 fL (9.4-12.4); Monocytes # 0.7 K/mcL (0.0-1.3); Monocytes % 9.7 %; Neutrophils # 4.9 K/mcL (1.6-8.9); Platelet Count 209 K/mcL (140-400); Red Blood Count 4.38 M/mcL (4.19-5.50); Red Cell Distribution Width 16.6 % (11.5-14.5); Segmented Neutrophils % 68.3 %; White Blood Count 7.2 K/mcL (4.3-11.1)
[2022-03-06 05:51] LABS: Heparin anti-factor XA UFH 0.67 IU/mL (0.30-0.70)
[2022-03-06 05:52] LABS: INR 1.9; Prothrombin Time 21.4 Seconds (9.4-12.1)
[2022-03-06 06:35] LABS: BUN/Creatinine Ratio 34 (6-26); Blood Urea Nitrogen 32 mg/dL (6-20); Calcium 8.6 mg/dL (8.6-10.3); Carbon Dioxide 45 mEq/L (23-29); Chloride 93 mEq/L (98-107); Glucose 193 mg/dL (70-105); Magnesium 1.9 mg/dL (1.6-2.6); Osmolality,Calculated 302 (280-300); Phosphorous 2.5 mg/dL (2.7-4.5); Potassium 4.6 mEq/L (3.5-5.1); Sodium 140 mEq/L (136-145)
[2022-03-06] MEDS: levoFLOXacin 750 MG TABLET PO SCH (08:06)
[2022-03-06] MEDS: carvediloL 25 MG TABLET PO SCH (08:06)
[2022-03-06] MEDS: Spironolactone 25 MG TABLET PO SCH (08:07)
[2022-03-06] MEDS: *HR* Amiodarone 200 MG TABLET PO SCH (08:07)
[2022-03-06] MEDS: metroNIDAZOLE 500 MG TABLET PO SCH ×3 (08:07→22:01)
[2022-03-06] MEDS: Linezolid 600 MG TABLET PO SCH ×2 (08:07→22:00)
[2022-03-06] MEDS: *HR* HYDROcodone/Acet 5/325 mg TABLET PO PRN ×2 (08:13→22:01)
[2022-03-06] MEDS: Insulin LISPRO 300 UNITS/3 ML VIAL SUBQ SCH ×7 (08:14→22:02)
[2022-03-06] MEDS: Insulin DETEMIR 100 UNIT/ML X5UNITS SUBQ SCH ×2 (08:14→22:01)
[2022-03-06] MEDS: Furosemide 40 MG/4 ML VIAL IVP SCH ×2 (08:45→22:02)
[2022-03-06] MEDS ORDERED: Potassium Phosphate 44 MEQ in 0.9 % Sodium Chloride 250 ML IVPB ONE (08:48)
[2022-03-06] MEDS: Nystatin POWDER 30 GM BOTTLE TP SCH ×3 (10:19→22:01)
[2022-03-06] MEDS: Albumin 25% 25gram/100mL 25 GM/100 ML IV.SOLN IVC SCH ×4 (15:51→17:15)
[2022-03-06] MEDS ORDERED: *HR* Warfarin 5 MG TABLET PO ONE (18:00)
[2022-03-06] MEDS: Melatonin 3 MG TABLET PO SCH (22:00)
[2022-03-06] MEDS: Metoprolol XL (24 HR) Succ 50 MG TAB.ER.24H PO SCH (22:01)
[2022-03-07 04:14] LABS: Basophils # 0.1 K/mcL (0.0-0.2); Basophils % 0.9 %; Eosinophils # 0.3 K/mcL (0.0-0.6); Eosinophils % 3.2 %; Hematocrit 44.4 % (37.5-50.1); Hemoglobin 13.1 g/dL (12.9-16.9); Immature Granulocytes % 0.3 % (0-4); Lymphocytes # 1.5 K/mcL (0.6-4.6); Lymphocytes % 16.3 %; Mean Corpuscular HGB Conc 29.5 g/dL (31.6-35.5); Mean Corpuscular Volume 98.2 fL (83.0-100.0); Mean Platelet Volume 10.7 fL (9.4-12.4); Monocytes % 10.4 %; Neutrophils # 6.3 K/mcL (1.6-8.9); Platelet Count 227 K/mcL (140-400); Red Blood Count 4.52 M/mcL (4.19-5.50); Red Cell Distribution Width 16.7 % (11.5-14.5); Segmented Neutrophils % 68.9 %; White Blood Count 9.2 K/mcL (4.3-11.1)
[2022-03-07 04:19] LABS: INR 2.3; Prothrombin Time 25.8 Seconds (9.4-12.1)
[2022-03-07 04:36] LABS: Activated Partial Thrombo Time > 360.0 Seconds (26.0-36.0); Heparin anti-factor XA UFH 1.16 IU/mL (0.30-0.70)
[2022-03-07 04:43] LABS: BUN/Creatinine Ratio 33 (6-26); Blood Urea Nitrogen 29 mg/dL (6-20); Calcium 8.7 mg/dL (8.6-10.3); Carbon Dioxide > 45 mEq/L (23-29); Chloride 91 mEq/L (98-107); Glucose 134 mg/dL (70-105); Osmolality,Calculated 300 (280-300); Phosphorous 2.9 mg/dL (2.7-4.5); Potassium 4.4 mEq/L (3.5-5.1); Sodium 141 mEq/L (136-145)
[2022-03-07] MEDS: Heparin 25,000UNIT/250ML 1/2NS 25,000 UNIT/250 ML IV.SOLN IVC SCH (06:08)
[2022-03-07] MEDS: Spironolactone 25 MG TABLET PO SCH (08:03)
[2022-03-07] MEDS: Linezolid 600 MG TABLET PO SCH ×2 (08:03→21:40)
[2022-03-07] MEDS: levoFLOXacin 750 MG TABLET PO SCH (08:03)
[2022-03-07] MEDS: metroNIDAZOLE 500 MG TABLET PO SCH ×3 (08:03→21:40)
[2022-03-07] MEDS: Metoprolol XL (24 HR) Succ 50 MG TAB.ER.24H PO SCH ×2 (08:04→21:39)
[2022-03-07] MEDS: Insulin DETEMIR 100 UNIT/ML X5UNITS SUBQ SCH ×2 (08:04→21:40)
[2022-03-07] MEDS: Insulin LISPRO 300 UNITS/3 ML VIAL SUBQ SCH ×7 (08:04→21:40)
[2022-03-07] MEDS: *HR* Amiodarone 200 MG TABLET PO SCH (08:04)
[2022-03-07] MEDS: *HR* HYDROcodone/Acet 5/325 mg TABLET PO PRN (08:21)
[2022-03-07] MEDS: Furosemide 40 MG/4 ML VIAL IVP SCH (08:53)
[2022-03-07] MEDS ORDERED: Furosemide 80 MG in 0.9 % Sodium Chloride 50 ML IVPB ONE (09:24)
[2022-03-07] MEDS: Nystatin POWDER 30 GM BOTTLE TP SCH ×3 (11:25→21:41)
[2022-03-07] MEDS ORDERED: *HR* OxyCODONE/APAP 5/325 TABLET PO ONE (11:27)
[2022-03-07] MEDS ORDERED: *HR* LORazepam 2 MG/ML VIAL IVP ONE (11:27)
[2022-03-07] MEDS ORDERED: Iopamidol - 370 500 ML MLS IVP ONE (11:28)
[2022-03-07] MEDS: *HR* HYDROcodone/Acet 7.5/325 mg TABLET PO PRN ×2 (15:50→21:39)
[2022-03-07 16:15] LABS: ABG Base Excess 18 mEq/L (-2 to 3); ABG HCO3 49 mEq/L (21-27); ABG Oxygen Saturation 97 % (95-98); ABG PCO2 89 mmHg (35-45); ABG PH 7.35 pH Units (7.32-7.45); ABG PO2 100 mmHg (85-104); ABG TCO2 > 50 mEq/L (20-26)
[2022-03-07] MEDS ORDERED: *HR* Warfarin 4 MG TABLET PO ONE (18:00)
[2022-03-07] MEDS: Acetaminophen 325 MG TABLET PO PRN (20:11)
[2022-03-07] MEDS: Melatonin 3 MG TABLET PO SCH (21:40)
[2022-03-07] MEDS: *HR* Metoprolol 5 MG/5 ML VIAL IVP PRN (23:41)
[2022-03-07] MEDS: Baclofen 10 MG TABLET PO PRN (23:44)
[2022-03-08 03:07] LABS: Basophils # 0.1 K/mcL (0.0-0.2); Basophils % 0.7 %; Eosinophils # 0.1 K/mcL (0.0-0.6); Eosinophils % 0.6 %; Hematocrit 46.7 % (37.5-50.1); Hemoglobin 13.9 g/dL (12.9-16.9); Immature Granulocytes % 0.4 % (0-4); Lymphocytes % 10.3 %; Mean Corpuscular HGB Conc 29.8 g/dL (31.6-35.5); Mean Corpuscular Hemoglobin 29.6 pg (28.0-33.3); Mean Corpuscular Volume 99.4 fL (83.0-100.0); Mean Platelet Volume 10.2 fL (9.4-12.4); Monocytes # 0.9 K/mcL (0.0-1.3); Monocytes % 9.3 %; Neutrophils # 7.9 K/mcL (1.6-8.9); Platelet Count 230 K/mcL (140-400); Red Cell Distribution Width 16.7 % (11.5-14.5); Segmented Neutrophils % 78.7 %; White Blood Count 10.1 K/mcL (4.3-11.1)
[2022-03-08 03:35] LABS: BUN/Creatinine Ratio 33 (6-26); Blood Urea Nitrogen 29 mg/dL (6-20); C-Reactive Protein 25 mg/L (Less than 10); Carbon Dioxide > 45 mEq/L (23-29); Chloride 89 mEq/L (98-107); Glucose 208 mg/dL (70-105); Osmolality,Calculated 300 (280-300); Potassium 4.9 mEq/L (3.5-5.1); Sodium 139 mEq/L (136-145)
[2022-03-08] MEDS: Saline Nasal Spray 44 ML BOTTLE NS SCH ×10 (04:37→22:17)
[2022-03-08] MEDS: *HR* HYDROcodone/Acet 7.5/325 mg TABLET PO PRN ×3 (06:34→18:08)
[2022-03-08 07:43] LABS: INR 3.3; Prothrombin Time 36.1 Seconds (9.4-12.1)
[2022-03-08 07:46] LABS: Activated Partial Thrombo Time 39.7 Seconds (26.0-36.0)
[2022-03-08] MEDS: Insulin LISPRO 300 UNITS/3 ML VIAL SUBQ SCH ×7 (08:08→21:10)
[2022-03-08] MEDS: metroNIDAZOLE 500 MG TABLET PO SCH ×3 (08:12→21:06)
[2022-03-08] MEDS: Metoprolol XL (24 HR) Succ 50 MG TAB.ER.24H PO SCH ×2 (08:12→21:05)
[2022-03-08] MEDS: Spironolactone 25 MG TABLET PO SCH (08:13)
[2022-03-08] MEDS: levoFLOXacin 750 MG TABLET PO SCH (08:13)
[2022-03-08] MEDS: Linezolid 600 MG TABLET PO SCH ×2 (08:13→21:05)
[2022-03-08] MEDS: *HR* Amiodarone 200 MG TABLET PO SCH (08:14)
[2022-03-08] MEDS: Insulin DETEMIR 100 UNIT/ML X5UNITS SUBQ SCH ×2 (08:34→21:06)
[2022-03-08] MEDS: Furosemide 80 MG in 0.9 % Sodium Chloride 50 ML IV SCH ×3 (08:34→21:04)
[2022-03-08 08:37] LABS: Alanine Aminotransferase 14 Units/L (7-52); Albumin 3.6 g/dL (3.5-5.7); Alkaline Phosphatase 157 Units/L (34-104); Aspartate Amino Transferase 17 Units/L (13-39); Bilirubin,Direct 0.2 mg/dL (0.0-0.2); Bilirubin,Indirect 0.4 mg/dL (0.0-1.0); Bilirubin,Total 0.6 mg/dL (0.3-1.0); Globulin 3.5 g/dL (2.4-3.5); Lactate Dehydrogenase 238 Units/L (140-271); Total Protein 7.1 g/dL (6.4-8.9); Uric Acid 4.6 mg/dL (2.3-7.6)
[2022-03-08] MEDS: Nystatin POWDER 30 GM BOTTLE TP SCH ×3 (10:53→21:07)
[2022-03-08] MEDS: *HR* Metoprolol 5 MG/5 ML VIAL IVP PRN (13:42)
[2022-03-08] MEDS: Acetaminophen 325 MG TABLET PO PRN (13:42)
[2022-03-08] MEDS: *HR* OxyCODONE/APAP 7.5/325 TABLET PO PRN ×2 (14:04→21:36)
[2022-03-08] MEDS ORDERED: hydrOXYzine pamoate 25 MG CAPSULE PO PRN (15:26)
[2022-03-08] MEDS: Melatonin 3 MG TABLET PO SCH (21:06)
[2022-03-09] MEDS: Saline Nasal Spray 44 ML BOTTLE NS SCH ×11 (00:21→22:20)
[2022-03-09] MEDS: Baclofen 10 MG TABLET PO PRN (02:58)
[2022-03-09] MEDS: *HR* HYDROcodone/Acet 7.5/325 mg TABLET PO PRN ×2 (02:58→09:27)
[2022-03-09 03:30] LABS: Basophils % 0.5 %; Eosinophils # 0.1 K/mcL (0.0-0.6); Eosinophils % 1.1 %; Hematocrit 45.2 % (37.5-50.1); Hemoglobin 13.5 g/dL (12.9-16.9); Immature Granulocytes % 0.4 % (0-4); Lymphocytes % 11.7 %; Mean Corpuscular HGB Conc 29.9 g/dL (31.6-35.5); Mean Corpuscular Hemoglobin 29.2 pg (28.0-33.3); Mean Corpuscular Volume 97.6 fL (83.0-100.0); Mean Platelet Volume 10.4 fL (9.4-12.4); Monocytes # 0.8 K/mcL (0.0-1.3); Monocytes % 9.8 %; Neutrophils # 6.6 K/mcL (1.6-8.9); Platelet Count 180 K/mcL (140-400); Red Blood Count 4.63 M/mcL (4.19-5.50); Red Cell Distribution Width 16.5 % (11.5-14.5); Segmented Neutrophils % 76.5 %; White Blood Count 8.6 K/mcL (4.3-11.1)
[2022-03-09 03:42] LABS: Prothrombin Time 54.8 Seconds (9.4-12.1)
[2022-03-09 04:28] LABS: BUN/Creatinine Ratio 32 (6-26); Blood Urea Nitrogen 28 mg/dL (6-20); Calcium 8.8 mg/dL (8.6-10.3); Carbon Dioxide > 45 mEq/L (23-29); Chloride 88 mEq/L (98-107); Glucose 164 mg/dL (70-105); Osmolality,Calculated 301 (280-300); Potassium 4.4 mEq/L (3.5-5.1); Sodium 141 mEq/L (136-145)
[2022-03-09] MEDS: Linezolid 600 MG TABLET PO SCH ×2 (09:26→20:48)
[2022-03-09] MEDS: Spironolactone 25 MG TABLET PO SCH (09:26)
[2022-03-09] MEDS: *HR* Amiodarone 200 MG TABLET PO SCH (09:26)
[2022-03-09] MEDS: Metoprolol XL (24 HR) Succ 50 MG TAB.ER.24H PO SCH ×2 (09:26→20:49)
[2022-03-09] MEDS: metroNIDAZOLE 500 MG TABLET PO SCH ×3 (09:27→20:48)
[2022-03-09] MEDS: polyethylene glycoL 3350 17 GM POWD.PACK PO SCH (09:27)
[2022-03-09] MEDS: levoFLOXacin 750 MG TABLET PO SCH (09:27)
[2022-03-09] MEDS: Nystatin POWDER 30 GM BOTTLE TP SCH ×3 (09:28→20:53)
[2022-03-09] MEDS: Insulin LISPRO 300 UNITS/3 ML VIAL SUBQ SCH ×7 (09:30→21:47)
[2022-03-09] MEDS: Insulin DETEMIR 100 UNIT/ML X5UNITS SUBQ SCH ×2 (09:38→21:48)
[2022-03-09] MEDS: Furosemide 80 MG in 0.9 % Sodium Chloride 50 ML IV SCH ×2 (09:39→21:42)
[2022-03-09] MEDS: *HR* OxyCODONE/APAP 7.5/325 TABLET PO PRN (13:53)
[2022-03-09] MEDS ORDERED: *HR* HYDROcodone/Acet 5/325 mg TABLET PO PRN (15:21)
[2022-03-09] MEDS: *HR* OxyCODONE Immed Rel 5 MG TABLET PO PRN ×2 (18:56→23:59)
[2022-03-09] MEDS: Melatonin 3 MG TABLET PO SCH (20:48)
[2022-03-10] MEDS: Saline Nasal Spray 44 ML BOTTLE NS SCH ×7 (00:04→18:30)
[2022-03-10 06:03] LABS: INR 3.3; Prothrombin Time 36.1 Seconds (9.4-12.1)
[2022-03-10 06:56] LABS: Basophils % 0.3 %; Eosinophils # 0.1 K/mcL (0.0-0.6); Eosinophils % 1.2 %; Hematocrit 43.6 % (37.5-50.1); Hemoglobin 13.2 g/dL (12.9-16.9); Immature Granulocytes % 0.3 % (0-4); Lymphocytes # 1.1 K/mcL (0.6-4.6); Mean Corpuscular HGB Conc 30.3 g/dL (31.6-35.5); Mean Corpuscular Hemoglobin 29.7 pg (28.0-33.3); Mean Platelet Volume 10.1 fL (9.4-12.4); Monocytes # 0.9 K/mcL (0.0-1.3); Monocytes % 9.8 %; Neutrophils # 6.8 K/mcL (1.6-8.9); Platelet Count 158 K/mcL (140-400); Red Blood Count 4.45 M/mcL (4.19-5.50); Red Cell Distribution Width 16.4 % (11.5-14.5); Segmented Neutrophils % 76.4 %; White Blood Count 8.9 K/mcL (4.3-11.1)
[2022-03-10] MEDS: *HR* OxyCODONE Immed Rel 5 MG TABLET PO PRN ×3 (07:07→23:33)
[2022-03-10 07:36] LABS: BUN/Creatinine Ratio 32 (6-26); Blood Urea Nitrogen 28 mg/dL (6-20); Chloride 87 mEq/L (98-107); Glucose 156 mg/dL (70-105); Osmolality,Calculated 299 (280-300); Potassium 4.7 mEq/L (3.5-5.1)
[2022-03-10] MEDS: Insulin LISPRO 300 UNITS/3 ML VIAL SUBQ SCH ×6 (11:17→16:36)
[2022-03-10] MEDS: Spironolactone 25 MG TABLET PO SCH (11:17)
[2022-03-10] MEDS: Insulin DETEMIR 100 UNIT/ML X5UNITS SUBQ SCH (11:18)
[2022-03-10] MEDS: *HR* Amiodarone 200 MG TABLET PO SCH (11:18)
[2022-03-10] MEDS: Furosemide 80 MG in 0.9 % Sodium Chloride 50 ML IV SCH (11:18)
[2022-03-10] MEDS: levoFLOXacin 750 MG TABLET PO SCH (11:18)
[2022-03-10] MEDS: metroNIDAZOLE 500 MG TABLET PO SCH ×2 (11:18→16:44)
[2022-03-10] MEDS: Linezolid 600 MG TABLET PO SCH (11:19)
[2022-03-10] MEDS: polyethylene glycoL 3350 17 GM POWD.PACK PO SCH (11:19)
[2022-03-10] MEDS: Nystatin POWDER 30 GM BOTTLE TP SCH ×2 (11:19→16:36)
[2022-03-10] MEDS: Metoprolol XL (24 HR) Succ 50 MG TAB.ER.24H PO SCH (11:19)
[2022-03-10 15:24] LABS: Carbon Dioxide > 45 mEq/L (23-29)
[2022-03-10 15:26] LABS: Sodium 140 mEq/L (136-145)
[2022-03-11] MEDS: Linezolid 600 MG TABLET PO SCH ×3 (00:41→23:05)
[2022-03-11] MEDS: Saline Nasal Spray 44 ML BOTTLE NS SCH ×12 (00:41→23:19)
[2022-03-11] MEDS: metroNIDAZOLE 500 MG TABLET PO SCH ×4 (00:41→23:04)
[2022-03-11] MEDS: Metoprolol XL (24 HR) Succ 50 MG TAB.ER.24H PO SCH ×3 (00:41→23:04)
[2022-03-11] MEDS: Baclofen 10 MG TABLET PO PRN ×3 (00:41→23:05)
[2022-03-11] MEDS: Nystatin POWDER 30 GM BOTTLE TP SCH ×4 (00:42→23:08)
[2022-03-11] MEDS: Melatonin 3 MG TABLET PO SCH ×2 (00:42→23:04)
[2022-03-11] MEDS: Furosemide 80 MG in 0.9 % Sodium Chloride 50 ML IV SCH ×3 (00:43→23:06)
[2022-03-11] MEDS: Insulin DETEMIR 100 UNIT/ML X5UNITS SUBQ SCH ×3 (00:51→23:18)
[2022-03-11] MEDS: Insulin LISPRO 300 UNITS/3 ML VIAL SUBQ SCH ×8 (00:52→23:18)
[2022-03-11] MEDS: polyethylene glycoL 3350 17 GM POWD.PACK PO SCH (08:56)
[2022-03-11] MEDS: Spironolactone 25 MG TABLET PO SCH (08:56)
[2022-03-11] MEDS: *HR* Amiodarone 200 MG TABLET PO SCH (08:56)
[2022-03-11] MEDS: levoFLOXacin 750 MG TABLET PO SCH (08:57)
[2022-03-11 12:09] LABS: INR 1.9; Prothrombin Time 20.8 Seconds (9.4-12.1)
[2022-03-11] MEDS: Acetaminophen 325 MG TABLET PO PRN ×2 (14:27→23:05)
[2022-03-11] MEDS ORDERED: *HR* Warfarin 5 MG TABLET PO ONE (18:00)
[2022-03-11] MEDS: *HR* OxyCODONE Immed Rel 5 MG TABLET PO PRN (23:05)
[2022-03-12] MEDS: *HR* OxyCODONE Immed Rel 5 MG TABLET PO PRN ×2 (06:12→16:46)
[2022-03-12] MEDS: Saline Nasal Spray 44 ML BOTTLE NS SCH ×13 (06:12→23:37)
[2022-03-12 06:19] LABS: Basophils # 0.1 K/mcL (0.0-0.2); Basophils % 0.6 %; Eosinophils # 0.3 K/mcL (0.0-0.6); Eosinophils % 2.7 %; Hematocrit 40.8 % (37.5-50.1); Hemoglobin 12.4 g/dL (12.9-16.9); Immature Granulocytes % 0.4 % (0-4); Lymphocytes # 1.5 K/mcL (0.6-4.6); Mean Corpuscular HGB Conc 30.4 g/dL (31.6-35.5); Mean Corpuscular Hemoglobin 29.5 pg (28.0-33.3); Mean Corpuscular Volume 97.1 fL (83.0-100.0); Mean Platelet Volume 10.5 fL (9.4-12.4); Platelet Count 147 K/mcL (140-400); Red Cell Distribution Width 16.4 % (11.5-14.5); Segmented Neutrophils % 73.3 %
[2022-03-12 06:44] LABS: BUN/Creatinine Ratio 27 (6-26); Blood Urea Nitrogen 28 mg/dL (6-20); Calcium 8.6 mg/dL (8.6-10.3); Carbon Dioxide > 45 mEq/L (23-29); Chloride 90 mEq/L (98-107); Glucose 115 mg/dL (70-105); Osmolality,Calculated 294 (280-300); Potassium 4.2 mEq/L (3.5-5.1); Sodium 139 mEq/L (136-145)
[2022-03-12] MEDS: levoFLOXacin 750 MG TABLET PO SCH (09:37)
[2022-03-12] MEDS: Spironolactone 25 MG TABLET PO SCH (09:37)
[2022-03-12] MEDS: Metoprolol XL (24 HR) Succ 50 MG TAB.ER.24H PO SCH ×2 (09:37→21:56)
[2022-03-12] MEDS: metroNIDAZOLE 500 MG TABLET PO SCH ×3 (09:37→21:56)
[2022-03-12] MEDS: polyethylene glycoL 3350 17 GM POWD.PACK PO SCH (09:37)
[2022-03-12] MEDS: *HR* Amiodarone 200 MG TABLET PO SCH (09:37)
[2022-03-12] MEDS: Furosemide 80 MG in 0.9 % Sodium Chloride 50 ML IV SCH ×2 (09:38→22:11)
[2022-03-12] MEDS: Linezolid 600 MG TABLET PO SCH ×2 (09:38→21:56)
[2022-03-12] MEDS: Insulin DETEMIR 100 UNIT/ML X5UNITS SUBQ SCH ×2 (09:38→21:57)
[2022-03-12] MEDS: Insulin LISPRO 300 UNITS/3 ML VIAL SUBQ SCH ×7 (09:40→22:00)
[2022-03-12] MEDS: Nystatin POWDER 30 GM BOTTLE TP SCH ×3 (09:42→21:58)
[2022-03-12 10:39] LABS: INR 1.5; Prothrombin Time 16.7 Seconds (9.4-12.1)
[2022-03-12] MEDS ORDERED: *HR* Warfarin 7.5 MG TABLET PO ONE (20:00)
[2022-03-12] MEDS: Furosemide 40 MG/4 ML VIAL IVP SCH (21:57)
[2022-03-12] MEDS: Melatonin 3 MG TABLET PO SCH (21:57)
[2022-03-13] MEDS: Acetaminophen 325 MG TABLET PO PRN (01:43)
[2022-03-13] MEDS: *HR* OxyCODONE Immed Rel 5 MG TABLET PO PRN ×3 (01:43→18:03)
[2022-03-13] MEDS: Saline Nasal Spray 44 ML BOTTLE NS SCH ×9 (05:29→22:07)
[2022-03-13 08:33] LABS: Basophils # 0.1 K/mcL (0.0-0.2); Basophils % 0.7 %; Eosinophils # 0.3 K/mcL (0.0-0.6); Eosinophils % 2.7 %; Hematocrit 42.3 % (37.5-50.1); Hemoglobin 12.6 g/dL (12.9-16.9); Immature Granulocytes % 0.3 % (0-4); Lymphocytes # 1.2 K/mcL (0.6-4.6); Lymphocytes % 12.7 %; Mean Corpuscular HGB Conc 29.8 g/dL (31.6-35.5); Mean Corpuscular Hemoglobin 28.9 pg (28.0-33.3); Mean Platelet Volume 10.6 fL (9.4-12.4); Monocytes # 0.9 K/mcL (0.0-1.3); Monocytes % 10.1 %; Neutrophils # 6.7 K/mcL (1.6-8.9); Platelet Count 142 K/mcL (140-400); Red Blood Count 4.36 M/mcL (4.19-5.50); Red Cell Distribution Width 16.4 % (11.5-14.5); Segmented Neutrophils % 73.5 %; White Blood Count 9.2 K/mcL (4.3-11.1)
[2022-03-13 08:41] LABS: INR 1.4; Prothrombin Time 15.6 Seconds (9.4-12.1)
[2022-03-13 08:53] LABS: BUN/Creatinine Ratio 32 (6-26); Blood Urea Nitrogen 31 mg/dL (6-20); Calcium 8.8 mg/dL (8.6-10.3); Carbon Dioxide > 45 mEq/L (23-29); Chloride 88 mEq/L (98-107); Glucose 241 mg/dL (70-105); Osmolality,Calculated 300 (280-300); Potassium 4.5 mEq/L (3.5-5.1); Sodium 138 mEq/L (136-145)
[2022-03-13] MEDS: Insulin LISPRO 300 UNITS/3 ML VIAL SUBQ SCH ×7 (09:40→22:08)
[2022-03-13] MEDS: metroNIDAZOLE 500 MG TABLET PO SCH ×3 (09:41→21:31)
[2022-03-13] MEDS: Linezolid 600 MG TABLET PO SCH ×2 (09:41→21:32)
[2022-03-13] MEDS: polyethylene glycoL 3350 17 GM POWD.PACK PO SCH (09:41)
[2022-03-13] MEDS: *HR* Amiodarone 200 MG TABLET PO SCH (09:41)
[2022-03-13] MEDS: Metoprolol XL (24 HR) Succ 50 MG TAB.ER.24H PO SCH ×2 (09:41→21:32)
[2022-03-13] MEDS: Spironolactone 25 MG TABLET PO SCH (09:42)
[2022-03-13] MEDS: Furosemide 40 MG/4 ML VIAL IVP SCH ×2 (09:42→21:07)
[2022-03-13] MEDS: Nystatin POWDER 30 GM BOTTLE TP SCH ×3 (09:51→21:32)
[2022-03-13] MEDS: Insulin DETEMIR 100 UNIT/ML X5UNITS SUBQ SCH ×2 (09:51→22:08)
[2022-03-13] MEDS ORDERED: *HR* Heparin 5,000 UNIT/ML VIAL IVP PRN ×2 (10:02)
[2022-03-13] MEDS: Heparin 25,000UNIT/250ML 1/2NS 25,000 UNIT/250 ML IV.SOLN IVC SCH ×2 (11:44→23:29)
[2022-03-13] MEDS ORDERED: *HR* Succinylcholine 200 MG/10 ML VIAL IVP ONE (15:04)
[2022-03-13] MEDS ORDERED: *HR* Midazolam HCl 5 MG/5 ML VIAL IVP ONE ×2 (15:04→22:54)
[2022-03-13] MEDS ORDERED: *HR* Propofol 200 MG/20 ML VIAL IVP ONE ×2 (15:04→23:47)
[2022-03-13] MEDS ORDERED: *HR* Warfarin 5 MG TABLET PO ONE (18:00)
[2022-03-13] MEDS: Melatonin 3 MG TABLET PO SCH (21:32)
[2022-03-13 21:59] LABS: Basophils % 0.6 %; Hemoglobin 12.1 g/dL (12.9-16.9); Mean Platelet Volume 10.8 fL (9.4-12.4)
[2022-03-13 22:01] LABS: Basophils # 0.1 K/mcL (0.0-0.2); Eosinophils # 0.3 K/mcL (0.0-0.6); Eosinophils % 3.2 %; Hematocrit 40.1 % (37.5-50.1); Immature Granulocytes % 0.3 % (0-4); Immature Platelets 6.7 % (1.1-6.1); Lymphocytes % 10.1 %; Mean Corpuscular HGB Conc 30.2 g/dL (31.6-35.5); Mean Corpuscular Hemoglobin 29.4 pg (28.0-33.3); Mean Corpuscular Volume 97.6 fL (83.0-100.0); Monocytes # 0.9 K/mcL (0.0-1.3); Monocytes % 9.1 %; Neutrophils # 7.9 K/mcL (1.6-8.9); Platelet Count 131 K/mcL (140-400); Red Blood Count 4.11 M/mcL (4.19-5.50); Red Cell Distribution Width 16.4 % (11.5-14.5); Segmented Neutrophils % 76.7 %; White Blood Count 10.3 K/mcL (4.3-11.1)
[2022-03-13 22:09] LABS: INR 1.5; Prothrombin Time 16.5 Seconds (9.4-12.1)
[2022-03-13 22:22] LABS: BUN/Creatinine Ratio 37 (6-26); Blood Urea Nitrogen 32 mg/dL (6-20); Calcium 8.7 mg/dL (8.6-10.3); Carbon Dioxide 45 mEq/L (23-29); Chloride 90 mEq/L (98-107); Glucose 234 mg/dL (70-105); Osmolality,Calculated 300 (280-300); Potassium 4.9 mEq/L (3.5-5.1); Sodium 138 mEq/L (136-145)
[2022-03-13] MEDS ORDERED: Protamine Sulfate 50 MG/5 ML VIAL IVP ONE (22:55)
[2022-03-13] MEDS ORDERED: Oxymetazoline Nasal Spray Bottle 30ML NS ONE (23:30)
[2022-03-13] MEDS ORDERED: Ondansetron 4 MG/2 ML VIAL ONE (23:47)
[2022-03-13] MEDS ORDERED: Artificial Tears SOLN 15 ML BOTTLE BOTH EYES PRN (23:47)
[2022-03-13] MEDS ORDERED: Albumin Human 5% 0 GM/0 ML IV.SOLN ONE (23:54)
[2022-03-13] MEDS ORDERED: *HR* Vasopressin 20 UNIT/ML VIAL ONE (23:54)
[2022-03-14] MEDS ORDERED: Lidocaine/EPI 1:100k 1% 20 ML VIAL ONE (00:03)
[2022-03-14] MEDS ORDERED: Oxymetazoline Nasal Spray Bottle 30ML NS ONE ×2 (00:04→01:49)
[2022-03-14 00:38] LABS: Basophils # 0.1 K/mcL (0.0-0.2); Basophils % 0.6 %; Eosinophils # 0.2 K/mcL (0.0-0.6); Eosinophils % 2.1 %; Hematocrit 34.9 % (37.5-50.1); Hemoglobin 10.6 g/dL (12.9-16.9); Immature Granulocytes % 0.5 % (0-4); Lymphocytes # 0.8 K/mcL (0.6-4.6); Lymphocytes % 7.7 %; Mean Corpuscular HGB Conc 30.4 g/dL (31.6-35.5); Mean Corpuscular Hemoglobin 29.5 pg (28.0-33.3); Mean Corpuscular Volume 97.2 fL (83.0-100.0); Mean Platelet Volume 10.8 fL (9.4-12.4); Monocytes # 0.9 K/mcL (0.0-1.3); Monocytes % 8.9 %; Neutrophils # 8.1 K/mcL (1.6-8.9); Platelet Count 136 K/mcL (140-400); Red Blood Count 3.59 M/mcL (4.19-5.50); Red Cell Distribution Width 16.2 % (11.5-14.5); Segmented Neutrophils % 80.2 %; White Blood Count 10.1 K/mcL (4.3-11.1)
[2022-03-14 00:42] LABS: VBG HCO3 40 mEq/L (21-27); VBG Ionized Calcium 1.03 mmol/L (1.15-1.35); VBG PCO2 60 mmHg (41-51); VBG PH 7.43 pH Units (7.32-7.42); VBG PO2 148 mmHg (25-50)
[2022-03-14 00:47] LABS: INR 1.5; Prothrombin Time 16.6 Seconds (9.4-12.1)
[2022-03-14] MEDS ORDERED: *HR* Rocuronium Bromide 50 MG/5 ML VIAL ONE ×3 (00:54→02:14)
[2022-03-14 00:58] LABS: Alanine Aminotransferase 10 Units/L (7-52); Albumin 2.9 g/dL (3.5-5.7); Albumin/Globulin Ratio 1.1 (1.1-2.2); Alkaline Phosphatase 159 Units/L (34-104); Aspartate Amino Transferase 13 Units/L (13-39); BUN/Creatinine Ratio 42 (6-26); Bilirubin,Direct 0.1 mg/dL (0.0-0.2); Bilirubin,Indirect 0.4 mg/dL (0.0-1.0); Bilirubin,Total 0.5 mg/dL (0.3-1.0); Blood Urea Nitrogen 35 mg/dL (6-20); Calcium 8.4 mg/dL (8.6-10.3); Carbon Dioxide 44 mEq/L (23-29); Chloride 91 mEq/L (98-107); Globulin 2.7 g/dL (2.4-3.5); Glucose 244 mg/dL (70-105); Magnesium 1.7 mg/dL (1.6-2.6); Osmolality,Calculated 300 (280-300); Potassium 4.9 mEq/L (3.5-5.1); Sodium 137 mEq/L (136-145); Total Protein 5.6 g/dL (6.4-8.9)
[2022-03-14] MEDS ORDERED: *HR* FentaNYL (PF) 100 MCG/2 ML VIAL ONE ×2 (01:14→02:01)
[2022-03-14] MEDS ORDERED: *HR* Labetalol 20 MG/4 ML SYRINGE IVP ONE (01:21)
[2022-03-14 01:51] LABS: Activated Partial Thrombo Time 22.4 Seconds (26.0-36.0)
[2022-03-14 02:42] LABS: Alpha 2 Globulin (PEP) 0.71 g/dL (0.48-1.05); Beta Globulin (PEP) 0.71 g/dL (0.48-1.10)
[2022-03-14 02:58] LABS: ABG Base Excess 15 mEq/L (-2 to 3); ABG HCO3 42 mEq/L (21-27); ABG Oxygen Saturation 93 % (95-98); ABG PCO2 58 mmHg (35-45); ABG PH 7.46 pH Units (7.32-7.45); ABG PO2 66 mmHg (85-104); ABG TCO2 44 mEq/L (20-26); Blood Gas Modality ASSIST CONTROL; Blood Gas VT 500 cc
[2022-03-14] MEDS: Artificial Tears SOLN 15 ML BOTTLE BOTH EYES SCH ×6 (03:01→20:30)
[2022-03-14] MEDS: Pantoprazole 40 MG VIAL IVP SCH ×3 (03:01→20:37)
[2022-03-14] MEDS: Saline Nasal Spray 44 ML BOTTLE NS SCH ×5 (03:02→10:45)
[2022-03-14] MEDS: FentaNYL (PF) 1,000 MCG/100 ML IV.SOLN IVC SCH ×2 (04:26→16:50)
[2022-03-14 05:15] LABS: IFE Reflexed NOT DONE
[2022-03-14] MEDS: Insulin LISPRO 300 UNITS/3 ML VIAL SUBQ SCH ×4 (06:42→10:56)
[2022-03-14] MEDS: Chlorhexidine Rinse 15 ML MOUTHWASH MM SCH ×2 (08:03→20:36)
[2022-03-14] MEDS: Metoprolol XL (24 HR) Succ 50 MG TAB.ER.24H PO SCH ×2 (08:03→20:38)
[2022-03-14] MEDS: metroNIDAZOLE 500 MG TABLET PO SCH ×3 (08:03→20:37)
[2022-03-14] MEDS: *HR* Amiodarone 200 MG TABLET PO SCH (08:03)
[2022-03-14] MEDS: Spironolactone 25 MG TABLET PO SCH (08:03)
[2022-03-14] MEDS: polyethylene glycoL 3350 17 GM POWD.PACK PO SCH (08:04)
[2022-03-14] MEDS: Furosemide 40 MG/4 ML VIAL IVP SCH ×2 (08:04→20:36)
[2022-03-14] MEDS: Insulin DETEMIR 100 UNIT/ML X5UNITS SUBQ SCH (08:05)
[2022-03-14] MEDS: Nystatin POWDER 30 GM BOTTLE TP SCH ×3 (09:39→20:38)
[2022-03-14] MEDS: Linezolid 600 MG TABLET PO SCH ×2 (09:39→20:37)
[2022-03-14] MEDS ORDERED: Lidocaine -MPF 1% 5 ML AMPUL INFILT ONE (09:51)
[2022-03-14 10:25] LABS: BUN/Creatinine Ratio 40 (6-26); Blood Urea Nitrogen 38 mg/dL (6-20); Carbon Dioxide 44 mEq/L (23-29); Chloride 89 mEq/L (98-107); Glucose 304 mg/dL (70-105); Osmolality,Calculated 304 (280-300); Potassium 5.3 mEq/L (3.5-5.1); Sodium 137 mEq/L (136-145)
[2022-03-14 10:37] LABS: Thyroid Stimulating Hormone 2.182 mcIU/mL (0.340-5.600)
[2022-03-14] MEDS ORDERED: *HR* Dextrose 50 % in Water (Syg) 50 ML SYRINGE IVP PRN (11:30)
[2022-03-14] MEDS ORDERED: Insulin LISPRO 300 UNITS/3 ML VIAL SUBQ SCH ×4 (11:30→12:00)
[2022-03-14 12:31] LABS: Hematocrit 35.2 % (37.5-50.1)
[2022-03-14 17:27] LABS: Basophils % 0.5 %; Eosinophils % 0.1 %; Hematocrit 32.6 % (37.5-50.1); Hemoglobin 10.4 g/dL (12.9-16.9); Immature Granulocytes % 0.3 % (0-4); Lymphocytes # 0.9 K/mcL (0.6-4.6); Mean Corpuscular HGB Conc 31.9 g/dL (31.6-35.5); Mean Corpuscular Hemoglobin 29.1 pg (28.0-33.3); Mean Corpuscular Volume 91.3 fL (83.0-100.0); Mean Platelet Volume 10.9 fL (9.4-12.4); Monocytes # 0.8 K/mcL (0.0-1.3); Monocytes % 8.8 %; Neutrophils # 6.9 K/mcL (1.6-8.9); Platelet Count 154 K/mcL (140-400); Red Blood Count 3.57 M/mcL (4.19-5.50); Red Cell Distribution Width 15.9 % (11.5-14.5); Segmented Neutrophils % 80.3 %; White Blood Count 8.6 K/mcL (4.3-11.1)
[2022-03-14 17:38] LABS: BUN/Creatinine Ratio 36 (6-26); Blood Urea Nitrogen 33 mg/dL (6-20); Calcium 8.7 mg/dL (8.6-10.3); Carbon Dioxide 44 mEq/L (23-29); Chloride 92 mEq/L (98-107); Glucose 177 mg/dL (70-105); Magnesium 1.9 mg/dL (1.6-2.6); Osmolality,Calculated 300 (280-300); Potassium 4.6 mEq/L (3.5-5.1); Sodium 139 mEq/L (136-145)
[2022-03-14] MEDS ORDERED: Potassium Phosphate 44 MEQ in 0.9 % Sodium Chloride 250 ML IVPB PRN (17:38)
[2022-03-14] MEDS ORDERED: Calcium Gluconate 1gm/50mL 1 GM/50 ML BAG IVPB PRN (17:38)
[2022-03-14] MEDS: Melatonin 3 MG TABLET PO SCH (20:31)
[2022-03-14] MEDS ORDERED: Insulin DETEMIR 100 UNIT/ML X5UNITS SUBQ SCH (21:00)
[2022-03-15] MEDS: Artificial Tears SOLN 15 ML BOTTLE BOTH EYES SCH ×6 (00:08→19:31)
[2022-03-15 04:20] LABS: Basophils # 0.1 K/mcL (0.0-0.2); Basophils % 0.5 %; Eosinophils # 0.1 K/mcL (0.0-0.6); Eosinophils % 0.9 %; Hematocrit 35.4 % (37.5-50.1); Hemoglobin 11.4 g/dL (12.9-16.9); Immature Granulocytes % 0.4 % (0-4); Lymphocytes # 1.7 K/mcL (0.6-4.6); Lymphocytes % 18.4 %; Mean Corpuscular HGB Conc 32.2 g/dL (31.6-35.5); Mean Corpuscular Hemoglobin 29.5 pg (28.0-33.3); Mean Corpuscular Volume 91.7 fL (83.0-100.0); Mean Platelet Volume 10.6 fL (9.4-12.4); Monocytes # 0.9 K/mcL (0.0-1.3); Monocytes % 9.4 %; Neutrophils # 6.4 K/mcL (1.6-8.9); Platelet Count 182 K/mcL (140-400); Red Blood Count 3.86 M/mcL (4.19-5.50); Red Cell Distribution Width 16.2 % (11.5-14.5); Segmented Neutrophils % 70.4 %; White Blood Count 9.1 K/mcL (4.3-11.1)
[2022-03-15 04:22] LABS: INR 1.5; Prothrombin Time 17.1 Seconds (9.4-12.1)
[2022-03-15 04:38] LABS: Alanine Aminotransferase 11 Units/L (7-52); Albumin 2.9 g/dL (3.5-5.7); Alkaline Phosphatase 140 Units/L (34-104); Aspartate Amino Transferase 12 Units/L (13-39); BUN/Creatinine Ratio 34 (6-26); Bilirubin,Total 0.7 mg/dL (0.3-1.0); Blood Urea Nitrogen 31 mg/dL (6-20); Calcium 8.8 mg/dL (8.6-10.3); Carbon Dioxide 42 mEq/L (23-29); Chloride 92 mEq/L (98-107); Glucose 102 mg/dL (70-105); Osmolality,Calculated 293 (280-300); Potassium 4.5 mEq/L (3.5-5.1); Sodium 138 mEq/L (136-145); Total Protein 5.9 g/dL (6.4-8.9)
[2022-03-15 04:51] LABS: ABG Base Excess 14 mEq/L (-2 to 3); ABG HCO3 38 mEq/L (21-27); ABG Oxygen Saturation 97 % (95-98); ABG PCO2 43 mmHg (35-45); ABG PH 7.55 pH Units (7.32-7.45); ABG PO2 79 mmHg (85-104); ABG TCO2 40 mEq/L (20-26); Blood Gas Modality ASSIST CONTROL; Blood Gas VT 500 cc
[2022-03-15] MEDS: FentaNYL (PF) 1,000 MCG/100 ML IV.SOLN IVC SCH ×2 (04:51→16:13)
[2022-03-15] MEDS: Pantoprazole 40 MG VIAL IVP SCH ×3 (08:02→19:31)
[2022-03-15] MEDS: polyethylene glycoL 3350 17 GM POWD.PACK PO SCH (08:02)
[2022-03-15] MEDS: Chlorhexidine Rinse 15 ML MOUTHWASH MM SCH ×2 (08:02→19:31)
[2022-03-15] MEDS: Spironolactone 25 MG TABLET PO SCH (08:03)
[2022-03-15] MEDS: metroNIDAZOLE 500 MG TABLET PO SCH ×3 (08:03→19:31)
[2022-03-15] MEDS: Linezolid 600 MG TABLET PO SCH ×2 (08:03→19:31)
[2022-03-15] MEDS: *HR* Amiodarone 200 MG TABLET PO SCH (08:03)
[2022-03-15] MEDS: Furosemide 40 MG/4 ML VIAL IVP SCH (08:03)
[2022-03-15] MEDS: Nystatin POWDER 30 GM BOTTLE TP SCH ×3 (08:04→20:03)
[2022-03-15] MEDS: Metoprolol XL (24 HR) Succ 50 MG TAB.ER.24H PO SCH (08:04)
[2022-03-15] MEDS: Metoprolol 100 MG TABLET PO SCH (09:47)
[2022-03-15] MEDS: Docusate Oral Soln 100 MG/10 ML UDC GTUBE SCH ×2 (09:47→19:31)
[2022-03-15] MEDS ORDERED: acetaZOLAMIDE 250 MG in Water for inj. (sterile) 2.5 ML IVP ONE (15:00)
[2022-03-15] MEDS: 3% Sodium Chloride Inhalation 4 ML VIAL.NEB IH SCH ×2 (15:24→15:27)
[2022-03-15] MEDS ORDERED: Albumin 25% 25gram/100mL 25 GM/100 ML IV.SOLN IVPB ONE (18:21)
[2022-03-15] MEDS ORDERED: 0.9 % Sodium Chloride 500 ML IVC ONE (18:52)
[2022-03-15 19:40] LABS: Hematocrit 32.4 % (37.5-50.1); Hemoglobin 10.4 g/dL (12.9-16.9)
[2022-03-15] MEDS: Melatonin 3 MG TABLET PO SCH (20:02)
[2022-03-15] MEDS: Norepinephrine 4 MG/254 ML IV.SOLN IVC SCH (20:07)
[2022-03-15] MEDS: Sodium Chloride for inhalation 3 ML VIAL IH SCH (22:47)
[2022-03-16] MEDS: Artificial Tears SOLN 15 ML BOTTLE BOTH EYES SCH ×7 (00:18→23:44)
[2022-03-16] MEDS: Sodium Chloride for inhalation 3 ML VIAL IH SCH ×4 (03:37→22:33)
[2022-03-16 04:45] LABS: Basophils % 0.5 %; Eosinophils # 0.2 K/mcL (0.0-0.6); Hematocrit 33.9 % (37.5-50.1); Hemoglobin 10.7 g/dL (12.9-16.9); Immature Granulocytes % 0.4 % (0-4); Lymphocytes # 1.6 K/mcL (0.6-4.6); Lymphocytes % 22.3 %; Mean Corpuscular HGB Conc 31.6 g/dL (31.6-35.5); Mean Corpuscular Hemoglobin 29.5 pg (28.0-33.3); Mean Corpuscular Volume 93.4 fL (83.0-100.0); Mean Platelet Volume 10.8 fL (9.4-12.4); Monocytes # 0.8 K/mcL (0.0-1.3); Monocytes % 10.4 %; Neutrophils # 4.7 K/mcL (1.6-8.9); Platelet Count 186 K/mcL (140-400); Red Blood Count 3.63 M/mcL (4.19-5.50); Red Cell Distribution Width 16.2 % (11.5-14.5); Segmented Neutrophils % 64.4 %; White Blood Count 7.3 K/mcL (4.3-11.1)
[2022-03-16 04:48] LABS: ABG Base Excess 8 mEq/L (-2 to 3); ABG HCO3 34 mEq/L (21-27); ABG Oxygen Saturation 97 % (95-98); ABG PCO2 49 mmHg (35-45); ABG PH 7.44 pH Units (7.32-7.45); ABG PO2 90 mmHg (85-104); ABG TCO2 35 mEq/L (20-26); Blood Gas Modality ASSIST CONTROL; Blood Gas VT 500 cc
[2022-03-16 05:02] LABS: Calcium 8.5 mg/dL (8.6-10.3)
[2022-03-16 05:03] LABS: INR 1.3; Prothrombin Time 14.9 Seconds (9.4-12.1)
[2022-03-16] MEDS: FentaNYL (PF) 1,000 MCG/100 ML IV.SOLN IVC SCH ×2 (05:53→21:25)
[2022-03-16] MEDS ORDERED: *HR* Succinylcholine 200 MG/10 ML VIAL IVP ONE (06:42)
[2022-03-16] MEDS ORDERED: *HR* Midazolam HCl 2 MG/2 ML VIAL ONE (06:42)
[2022-03-16] MEDS ORDERED: *HR* Propofol 200 MG/20 ML VIAL IVP ONE (06:42)
[2022-03-16] MEDS ORDERED: Ondansetron 4 MG/2 ML VIAL ONE (06:42)
[2022-03-16] MEDS ORDERED: *HR* Rocuronium Bromide 50 MG/5 ML VIAL ONE ×3 (06:42→09:26)
[2022-03-16] MEDS ORDERED: *HR* FentaNYL (PF) 100 MCG/2 ML VIAL ONE (06:48)
[2022-03-16] MEDS ORDERED: Lidocaine/EPI 1:100k 1% 10 ML Vial IJ ONE ×2 (07:25→07:27)
[2022-03-16] MEDS ORDERED: Lidocaine Jelly 11 ml Syringe ONE ×2 (07:28→08:28)
[2022-03-16] MEDS: Norepinephrine 4 MG/254 ML IV.SOLN IVC SCH ×3 (07:48→19:37)
[2022-03-16] MEDS: Spironolactone 25 MG TABLET PO SCH (07:51)
[2022-03-16] MEDS: Metoprolol 100 MG TABLET PO SCH ×2 (07:51→19:57)
[2022-03-16] MEDS: Docusate Oral Soln 100 MG/10 ML UDC GTUBE SCH ×2 (07:51→19:56)
[2022-03-16] MEDS: polyethylene glycoL 3350 17 GM POWD.PACK PO SCH (07:51)
[2022-03-16] MEDS: Pantoprazole 40 MG VIAL IVP SCH ×2 (07:59→19:55)
[2022-03-16] MEDS: Chlorhexidine Rinse 15 ML MOUTHWASH MM SCH ×2 (07:59→19:56)
[2022-03-16] MEDS: Nystatin POWDER 30 GM BOTTLE TP SCH ×3 (08:00→19:56)
[2022-03-16] MEDS: metroNIDAZOLE 500 MG TABLET PO SCH ×3 (08:00→19:56)
[2022-03-16] MEDS: Linezolid 600 MG TABLET PO SCH ×2 (08:00→19:57)
[2022-03-16] MEDS: *HR* Amiodarone 200 MG TABLET PO SCH (08:00)
[2022-03-16] MEDS ORDERED: Ketamine HCL *QUVA* 50mg (1mL) SYRINGE ONE (09:27)
[2022-03-16] MEDS ORDERED: Oxymetazoline Nasal Spray Bottle 30ML NS ONE (09:32)
[2022-03-16 11:02] LABS: VBG Ionized Calcium 1.03 mmol/L (1.15-1.35)
[2022-03-16] MEDS ORDERED: *HR* Amiodarone 200 MG TABLET PO ONE (13:15)
[2022-03-16] MEDS: Melatonin 3 MG TABLET PO SCH (19:57)
[2022-03-17] MEDS: Artificial Tears SOLN 15 ML BOTTLE BOTH EYES SCH ×6 (03:30→23:28)
[2022-03-17] MEDS: Sodium Chloride for inhalation 3 ML VIAL IH SCH ×4 (03:54→22:30)
[2022-03-17 04:08] LABS: Basophils # 0.1 K/mcL (0.0-0.2); Basophils % 0.6 %; Eosinophils # 0.3 K/mcL (0.0-0.6); Eosinophils % 3.2 %; Hematocrit 33.5 % (37.5-50.1); Immature Granulocytes % 0.4 % (0-4); Lymphocytes # 1.5 K/mcL (0.6-4.6); Lymphocytes % 16.1 %; Mean Corpuscular HGB Conc 32.8 g/dL (31.6-35.5); Mean Corpuscular Hemoglobin 30.1 pg (28.0-33.3); Mean Corpuscular Volume 91.5 fL (83.0-100.0); Mean Platelet Volume 10.4 fL (9.4-12.4); Monocytes # 1.1 K/mcL (0.0-1.3); Monocytes % 11.2 %; Neutrophils # 6.6 K/mcL (1.6-8.9); Nucleated Red Blood Cells 0.2 /100 WBC (0); Platelet Count 219 K/mcL (140-400); Red Blood Count 3.66 M/mcL (4.19-5.50); Red Cell Distribution Width 16.5 % (11.5-14.5); Segmented Neutrophils % 68.5 %; White Blood Count 9.6 K/mcL (4.3-11.1)
[2022-03-17 04:10] LABS: ABG Base Excess 4 mEq/L (-2 to 3); ABG HCO3 27 mEq/L (21-27); ABG Oxygen Saturation 95 % (95-98); ABG PCO2 34 mmHg (35-45); ABG PO2 69 mmHg (85-104); ABG TCO2 28 mEq/L (20-26); Blood Gas Modality ASSIST CONTROL; Blood Gas VT 500 cc
[2022-03-17 04:16] LABS: INR 1.3; Prothrombin Time 14.6 Seconds (9.4-12.1)
[2022-03-17 04:27] LABS: BUN/Creatinine Ratio 27 (6-26); Blood Urea Nitrogen 26 mg/dL (6-20); Calcium 8.2 mg/dL (8.6-10.3); Carbon Dioxide 31 mEq/L (23-29); Chloride 97 mEq/L (98-107); Glucose 161 mg/dL (70-105); Magnesium 1.8 mg/dL (1.6-2.6); Osmolality,Calculated 286 (280-300); Phosphorous 4.2 mg/dL (2.7-4.5); Potassium 3.6 mEq/L (3.5-5.1); Sodium 134 mEq/L (136-145)
[2022-03-17] MEDS: Pantoprazole 40 MG VIAL IVP SCH ×2 (09:00→20:18)
[2022-03-17] MEDS: metroNIDAZOLE 500 MG TABLET PO SCH ×3 (09:01→20:18)
[2022-03-17] MEDS: Linezolid 600 MG TABLET PO SCH ×2 (09:01→20:18)
[2022-03-17] MEDS: Spironolactone 25 MG TABLET PO SCH (09:01)
[2022-03-17] MEDS: *HR* Amiodarone 200 MG TABLET PO SCH (09:01)
[2022-03-17] MEDS: Metoprolol 100 MG TABLET PO SCH ×2 (09:01→20:18)
[2022-03-17] MEDS: polyethylene glycoL 3350 17 GM POWD.PACK PO SCH (09:10)
[2022-03-17] MEDS: Chlorhexidine Rinse 15 ML MOUTHWASH MM SCH ×2 (09:10→20:19)
[2022-03-17] MEDS: Docusate Oral Soln 100 MG/10 ML UDC GTUBE SCH ×2 (09:10→20:19)
[2022-03-17] MEDS: Nystatin POWDER 30 GM BOTTLE TP SCH ×3 (09:11→20:20)
[2022-03-17] MEDS: FentaNYL (PF) 1,000 MCG/100 ML IV.SOLN IVC SCH (10:29)
[2022-03-17] MEDS: Acetaminophen 325 MG TABLET PO PRN (16:13)
[2022-03-17] MEDS: Insulin DETEMIR 100 UNIT/ML X5UNITS SUBQ SCH (20:19)
[2022-03-17] MEDS: Melatonin 3 MG TABLET PO SCH (20:19)
[2022-03-17] MEDS: Insulin LISPRO 300 UNITS/3 ML VIAL SUBQ SCH (23:28)
[2022-03-18] MEDS: Artificial Tears SOLN 15 ML BOTTLE BOTH EYES SCH ×5 (03:09→20:12)
[2022-03-18 03:34] LABS: Basophils # 0.1 K/mcL (0.0-0.2); Basophils % 0.6 %; Eosinophils # 0.4 K/mcL (0.0-0.6); Eosinophils % 4.2 %; Hematocrit 31.4 % (37.5-50.1); Hemoglobin 10.3 g/dL (12.9-16.9); Immature Granulocytes % 0.4 % (0-4); Lymphocytes # 1.4 K/mcL (0.6-4.6); Lymphocytes % 16.6 %; Mean Corpuscular HGB Conc 32.8 g/dL (31.6-35.5); Mean Corpuscular Hemoglobin 30.1 pg (28.0-33.3); Mean Corpuscular Volume 91.8 fL (83.0-100.0); Mean Platelet Volume 10.5 fL (9.4-12.4); Monocytes # 1.2 K/mcL (0.0-1.3); Monocytes % 14.7 %; Neutrophils # 5.3 K/mcL (1.6-8.9); Platelet Count 193 K/mcL (140-400); Red Blood Count 3.42 M/mcL (4.19-5.50); Red Cell Distribution Width 16.4 % (11.5-14.5); Segmented Neutrophils % 63.5 %; White Blood Count 8.4 K/mcL (4.3-11.1)
[2022-03-18 03:48] LABS: INR 1.3; Prothrombin Time 14.5 Seconds (9.4-12.1)
[2022-03-18 03:50] LABS: BUN/Creatinine Ratio 25 (6-26); Blood Urea Nitrogen 22 mg/dL (6-20); Carbon Dioxide 29 mEq/L (23-29); Chloride 99 mEq/L (98-107); Glucose 161 mg/dL (70-105); Magnesium 1.7 mg/dL (1.6-2.6); Osmolality,Calculated 289 (280-300); Phosphorous 3.1 mg/dL (2.7-4.5); Potassium 3.4 mEq/L (3.5-5.1); Sodium 136 mEq/L (136-145)
[2022-03-18] MEDS: Sodium Chloride for inhalation 3 ML VIAL IH SCH ×5 (04:03→21:44)
[2022-03-18 04:14] LABS: ABG Base Excess 5 mEq/L (-2 to 3); ABG HCO3 29 mEq/L (21-27); ABG Oxygen Saturation 96 % (95-98); ABG PCO2 42 mmHg (35-45); ABG PH 7.45 pH Units (7.32-7.45); ABG PO2 81 mmHg (85-104); ABG TCO2 30 mEq/L (20-26); Blood Gas VT 500 cc
[2022-03-18] MEDS: Insulin LISPRO 300 UNITS/3 ML VIAL SUBQ SCH ×4 (04:19→23:26)
[2022-03-18] MEDS: FentaNYL (PF) 1,000 MCG/100 ML IV.SOLN IVC SCH (04:27)
[2022-03-18] MEDS: polyethylene glycoL 3350 17 GM POWD.PACK PO SCH (07:45)
[2022-03-18] MEDS: Docusate Oral Soln 100 MG/10 ML UDC GTUBE SCH ×2 (08:14→22:22)
[2022-03-18] MEDS: Chlorhexidine Rinse 15 ML MOUTHWASH MM SCH ×2 (08:14→20:11)
[2022-03-18] MEDS: Metoprolol 100 MG TABLET PO SCH ×2 (08:14→20:10)
[2022-03-18] MEDS: metroNIDAZOLE 500 MG TABLET PO SCH ×3 (08:14→20:10)
[2022-03-18] MEDS: Linezolid 600 MG TABLET PO SCH ×2 (08:15→20:11)
[2022-03-18] MEDS: *HR* Amiodarone 200 MG TABLET PO SCH (08:15)
[2022-03-18] MEDS: Pantoprazole 40 MG VIAL IVP SCH ×2 (08:15→20:11)
[2022-03-18] MEDS: Spironolactone 25 MG TABLET PO SCH (08:15)
[2022-03-18] MEDS: Nystatin POWDER 30 GM BOTTLE TP SCH ×3 (08:16→20:12)
[2022-03-18] MEDS: Dexmedetomidine HCl 400 MCG/100 ML MLS IVC SCH ×2 (10:57→20:11)
[2022-03-18] MEDS ORDERED: *HR* Heparin 5,000 UNIT/ML VIAL IVP PRN (12:42)
[2022-03-18] MEDS: Heparin 25,000UNIT/250ML 1/2NS 25,000 UNIT/250 ML IV.SOLN IVC SCH (13:48)
[2022-03-18 14:20] LABS: Heparin anti-factor XA UFH < 0.04 IU/mL (0.30-0.70); INR 1.2; Prothrombin Time 13.8 Seconds (9.4-12.1)
[2022-03-18] MEDS: Melatonin 3 MG TABLET PO SCH (20:11)
[2022-03-18] MEDS: Insulin DETEMIR 100 UNIT/ML X5UNITS SUBQ SCH (22:17)
[2022-03-18 22:21] LABS: Hematocrit 28.6 % (37.5-50.1); Hemoglobin 9.4 g/dL (12.9-16.9); Mean Corpuscular HGB Conc 32.9 g/dL (31.6-35.5); Mean Corpuscular Hemoglobin 30.6 pg (28.0-33.3); Mean Corpuscular Volume 93.2 fL (83.0-100.0); Platelet Count 158 K/mcL (140-400); Red Blood Count 3.07 M/mcL (4.19-5.50); Red Cell Distribution Width 16.4 % (11.5-14.5)
[2022-03-19] MEDS: Artificial Tears SOLN 15 ML BOTTLE BOTH EYES SCH ×6 (00:09→19:48)
[2022-03-19] MEDS: Heparin 25,000UNIT/250ML 1/2NS 25,000 UNIT/250 ML IV.SOLN IVC SCH ×2 (00:10→15:38)
[2022-03-19] MEDS: Sodium Chloride for inhalation 3 ML VIAL IH SCH ×4 (03:42→21:57)
[2022-03-19 03:52] LABS: Basophils # 0.1 K/mcL (0.0-0.2); Basophils % 0.5 %; Eosinophils # 0.5 K/mcL (0.0-0.6); Eosinophils % 4.4 %; Hematocrit 30.4 % (37.5-50.1); Hemoglobin 9.7 g/dL (12.9-16.9); Immature Granulocytes % 0.7 % (0-4); Lymphocytes # 1.6 K/mcL (0.6-4.6); Lymphocytes % 14.8 %; Mean Corpuscular HGB Conc 31.9 g/dL (31.6-35.5); Mean Corpuscular Hemoglobin 29.7 pg (28.0-33.3); Mean Platelet Volume 10.8 fL (9.4-12.4); Monocytes # 1.6 K/mcL (0.0-1.3); Monocytes % 14.8 %; Neutrophils # 6.9 K/mcL (1.6-8.9); Nucleated Red Blood Cells 0.2 /100 WBC (0); Platelet Count 180 K/mcL (140-400); Red Blood Count 3.27 M/mcL (4.19-5.50); Red Cell Distribution Width 16.3 % (11.5-14.5); Segmented Neutrophils % 64.8 %; White Blood Count 10.6 K/mcL (4.3-11.1)
[2022-03-19 04:05] LABS: BUN/Creatinine Ratio 21 (6-26); Blood Urea Nitrogen 16 mg/dL (6-20); Calcium 8.1 mg/dL (8.6-10.3); Carbon Dioxide 30 mEq/L (23-29); Chloride 99 mEq/L (98-107); Glucose 149 mg/dL (70-105); Magnesium 1.7 mg/dL (1.6-2.6); Osmolality,Calculated 286 (280-300); Phosphorous 2.3 mg/dL (2.7-4.5); Potassium 3.5 mEq/L (3.5-5.1); Sodium 136 mEq/L (136-145)
[2022-03-19 04:33] LABS: ABG Base Excess 3 mEq/L (-2 to 3); ABG HCO3 28 mEq/L (21-27); ABG Oxygen Saturation 96 % (95-98); ABG PCO2 40 mmHg (35-45); ABG PH 7.45 pH Units (7.32-7.45); ABG PO2 76 mmHg (85-104); ABG TCO2 29 mEq/L (20-26); Blood Gas Modality AF; Blood Gas VT 500 cc
[2022-03-19] MEDS: Acetaminophen 325 MG TABLET PO PRN ×2 (05:29→14:03)
[2022-03-19] MEDS: Insulin LISPRO 300 UNITS/3 ML VIAL SUBQ SCH ×4 (05:36→19:48)
[2022-03-19] MEDS: Spironolactone 25 MG TABLET PO SCH (08:02)
[2022-03-19] MEDS: metroNIDAZOLE 500 MG TABLET PO SCH ×3 (08:02→19:48)
[2022-03-19] MEDS: Metoprolol 100 MG TABLET PO SCH ×2 (08:02→19:48)
[2022-03-19] MEDS: Chlorhexidine Rinse 15 ML MOUTHWASH MM SCH ×2 (08:02→19:48)
[2022-03-19] MEDS: *HR* Amiodarone 200 MG TABLET PO SCH (08:02)
[2022-03-19] MEDS: Linezolid 600 MG TABLET PO SCH ×2 (08:02→19:48)
[2022-03-19] MEDS: Pantoprazole 40 MG VIAL IVP SCH (08:02)
[2022-03-19] MEDS: polyethylene glycoL 3350 17 GM POWD.PACK PO SCH (08:03)
[2022-03-19] MEDS: Docusate Oral Soln 100 MG/10 ML UDC GTUBE SCH ×2 (08:03→19:44)
[2022-03-19] MEDS: Nystatin POWDER 30 GM BOTTLE TP SCH ×3 (08:04→19:49)
[2022-03-19] MEDS ORDERED: Furosemide 40 MG/4 ML VIAL IVP ONE (08:40)
[2022-03-19 10:29] LABS: ABG Base Excess 1 mEq/L (-2 to 3); ABG HCO3 27 mEq/L (21-27); ABG Oxygen Saturation 98 % (95-98); ABG PCO2 51 mmHg (35-45); ABG PH 7.34 pH Units (7.32-7.45); ABG PO2 108 mmHg (85-104); ABG TCO2 29 mEq/L (20-26); Blood Gas Modality CPAP/PS; Blood Gas Pressure Support 8 cm H2O
[2022-03-19] MEDS ORDERED: Ondansetron 4 MG/2 ML VIAL ONE (11:10)
[2022-03-19] MEDS: Ondansetron 4 MG/2 ML VIAL IVP PRN (11:14)
[2022-03-19] MEDS: *HR* Heparin 5,000 UNIT/ML VIAL IVP PRN (15:37)
[2022-03-19] MEDS: Dexmedetomidine HCl 400 MCG/100 ML MLS IVC SCH (19:44)
[2022-03-19] MEDS: Melatonin 3 MG TABLET PO SCH (19:48)
[2022-03-19] MEDS: Insulin DETEMIR 100 UNIT/ML X5UNITS SUBQ SCH (19:50)
[2022-03-19 22:26] LABS: BUN/Creatinine Ratio 19 (6-26); Blood Urea Nitrogen 13 mg/dL (6-20); Calcium 8.1 mg/dL (8.6-10.3); Carbon Dioxide 29 mEq/L (23-29); Chloride 99 mEq/L (98-107); Glucose 180 mg/dL (70-105); Magnesium 1.7 mg/dL (1.6-2.6); Osmolality,Calculated 285 (280-300); Potassium 3.8 mEq/L (3.5-5.1); Sodium 135 mEq/L (136-145)
[2022-03-20] MEDS: Insulin LISPRO 300 UNITS/3 ML VIAL SUBQ SCH ×6 (00:28→20:21)
[2022-03-20] MEDS: Artificial Tears SOLN 15 ML BOTTLE BOTH EYES SCH ×6 (00:28→20:19)
[2022-03-20] MEDS: Heparin 25,000UNIT/250ML 1/2NS 25,000 UNIT/250 ML IV.SOLN IVC SCH ×4 (03:42→23:49)
[2022-03-20 04:23] LABS: VBG Ionized Calcium 1.11 mmol/L (1.15-1.35)
[2022-03-20] MEDS: Sodium Chloride for inhalation 3 ML VIAL IH SCH ×4 (04:32→23:08)
[2022-03-20 04:47] LABS: Basophils # 0.1 K/mcL (0.0-0.2); Basophils % 0.5 %; Eosinophils # 0.4 K/mcL (0.0-0.6); Eosinophils % 3.6 %; Hematocrit 29.9 % (37.5-50.1); Hemoglobin 9.6 g/dL (12.9-16.9); Immature Granulocytes % 0.8 % (0-4); Lymphocytes # 1.4 K/mcL (0.6-4.6); Lymphocytes % 12.8 %; Mean Corpuscular HGB Conc 32.1 g/dL (31.6-35.5); Mean Corpuscular Hemoglobin 29.6 pg (28.0-33.3); Mean Corpuscular Volume 92.3 fL (83.0-100.0); Mean Platelet Volume 10.7 fL (9.4-12.4); Monocytes # 1.7 K/mcL (0.0-1.3); Monocytes % 15.2 %; Neutrophils # 7.4 K/mcL (1.6-8.9); Nucleated Red Blood Cells 0.2 /100 WBC (0); Platelet Count 216 K/mcL (140-400); Red Blood Count 3.24 M/mcL (4.19-5.50); Red Cell Distribution Width 16.2 % (11.5-14.5); Segmented Neutrophils % 67.1 %
[2022-03-20 05:05] LABS: Alanine Aminotransferase 10 Units/L (7-52); Albumin 2.9 g/dL (3.5-5.7); Albumin/Globulin Ratio 0.9 (1.1-2.2); Alkaline Phosphatase 102 Units/L (34-104); Aspartate Amino Transferase 11 Units/L (13-39); BUN/Creatinine Ratio 21 (6-26); Bilirubin,Total 0.8 mg/dL (0.3-1.0); Blood Urea Nitrogen 13 mg/dL (6-20); Calcium 8.2 mg/dL (8.6-10.3); Carbon Dioxide 30 mEq/L (23-29); Chloride 99 mEq/L (98-107); Globulin 3.2 g/dL (2.4-3.5); Glucose 168 mg/dL (70-105); Magnesium 1.7 mg/dL (1.6-2.6); Osmolality,Calculated 286 (280-300); Phosphorous 1.8 mg/dL (2.7-4.5); Potassium 3.7 mEq/L (3.5-5.1); Sodium 136 mEq/L (136-145); Total Protein 6.1 g/dL (6.4-8.9)
[2022-03-20] MEDS: *HR* Heparin 5,000 UNIT/ML VIAL IVP PRN (07:08)
[2022-03-20] MEDS: Chlorhexidine Rinse 15 ML MOUTHWASH MM SCH ×2 (08:58→20:18)
[2022-03-20] MEDS: Metoprolol 100 MG TABLET PO SCH ×2 (09:00→20:17)
[2022-03-20] MEDS: Linezolid 600 MG TABLET PO SCH ×2 (09:00→20:17)
[2022-03-20] MEDS: Furosemide 40 MG TABLET PO SCH (09:01)
[2022-03-20] MEDS: *HR* Amiodarone 200 MG TABLET PO SCH (09:01)
[2022-03-20] MEDS: metroNIDAZOLE 500 MG TABLET PO SCH ×3 (09:01→20:18)
[2022-03-20] MEDS: Spironolactone 25 MG TABLET PO SCH (09:01)
[2022-03-20] MEDS: Pantoprazole 40 MG VIAL IVP SCH (09:02)
[2022-03-20] MEDS: Docusate Oral Soln 100 MG/10 ML UDC GTUBE SCH ×2 (09:02→20:18)
[2022-03-20] MEDS: Potassium Chloride Elixir 20 MEQ/15 ML UDC GTUBE SCH (09:03)
[2022-03-20] MEDS: polyethylene glycoL 3350 17 GM POWD.PACK PO SCH (09:03)
[2022-03-20] MEDS: Insulin DETEMIR 100 UNIT/ML X5UNITS SUBQ SCH ×2 (09:12→20:18)
[2022-03-20] MEDS: *HR* OxyCODONE Immed Rel 5 MG TABLET PO PRN ×2 (09:18→20:17)
[2022-03-20] MEDS: Nystatin POWDER 30 GM BOTTLE TP SCH ×3 (13:18→20:19)
[2022-03-20] MEDS: Ondansetron 4 MG/2 ML VIAL IVP PRN ×2 (13:38→20:36)
[2022-03-20] MEDS: Dexmedetomidine HCl 400 MCG/100 ML MLS IVC SCH (15:25)
[2022-03-20] MEDS: Acetaminophen 325 MG TABLET PO PRN (15:27)
[2022-03-20] MEDS: *HR* Labetalol 20 MG/4 ML SYRINGE IVP PRN ×2 (15:28→22:23)
[2022-03-20 16:33] LABS: Magnesium 1.9 mg/dL (1.6-2.6); Potassium 4.2 mEq/L (3.5-5.1)
[2022-03-20] MEDS: *HR* Metoprolol 5 MG/5 ML VIAL IVP PRN (16:35)
[2022-03-20] MEDS: Baclofen 10 MG TABLET PO PRN (20:17)
[2022-03-20] MEDS: Melatonin 3 MG TABLET PO SCH (20:17)
[2022-03-20] MEDS ORDERED: Nitroglycerin 0 MG/0 ML INFUS..BTL IVC ONE (21:45)
[2022-03-20] MEDS: Isosorbide MONOnitrate (24 HR) 30 MG TAB.ER.24H PO SCH (22:22)
[2022-03-20] MEDS ORDERED: Furosemide 40 MG TABLET PO SCH (23:00)
[2022-03-21] MEDS: Dexmedetomidine HCl 400 MCG/100 ML MLS IVC SCH ×2 (00:27→19:49)
[2022-03-21] MEDS: carvediloL 25 MG TABLET PO SCH ×3 (00:27→18:00)
[2022-03-21] MEDS: Insulin LISPRO 300 UNITS/3 ML VIAL SUBQ SCH ×7 (00:32→23:22)
[2022-03-21] MEDS: Artificial Tears SOLN 15 ML BOTTLE BOTH EYES SCH ×7 (00:33→23:23)
[2022-03-21] MEDS: *HR* Labetalol 20 MG/4 ML SYRINGE IVP PRN ×3 (03:35→09:12)
[2022-03-21] MEDS: Sodium Chloride for inhalation 3 ML VIAL IH SCH ×4 (04:21→23:04)
[2022-03-21 05:12] LABS: Basophils # 0.1 K/mcL (0.0-0.2); Basophils % 0.6 %; Eosinophils # 0.3 K/mcL (0.0-0.6); Eosinophils % 2.6 %; Hematocrit 32.6 % (37.5-50.1); Hemoglobin 10.2 g/dL (12.9-16.9); Immature Granulocytes % 1.7 % (0-4); Lymphocytes # 1.8 K/mcL (0.6-4.6); Lymphocytes % 16.4 %; Mean Corpuscular HGB Conc 31.3 g/dL (31.6-35.5); Mean Corpuscular Hemoglobin 29.7 pg (28.0-33.3); Mean Corpuscular Volume 94.8 fL (83.0-100.0); Monocytes # 1.5 K/mcL (0.0-1.3); Monocytes % 13.3 %; Neutrophils # 7.3 K/mcL (1.6-8.9); Platelet Count 226 K/mcL (140-400); Red Blood Count 3.44 M/mcL (4.19-5.50); Red Cell Distribution Width 16.8 % (11.5-14.5); Segmented Neutrophils % 65.4 %; White Blood Count 11.2 K/mcL (4.3-11.1)
[2022-03-21 05:32] LABS: Alanine Aminotransferase 10 Units/L (7-52); Albumin 3.1 g/dL (3.5-5.7); Alkaline Phosphatase 128 Units/L (34-104); Aspartate Amino Transferase 12 Units/L (13-39); BUN/Creatinine Ratio 19 (6-26); Bilirubin,Total 0.6 mg/dL (0.3-1.0); Blood Urea Nitrogen 12 mg/dL (6-20); Calcium 8.2 mg/dL (8.6-10.3); Carbon Dioxide 33 mEq/L (23-29); Chloride 99 mEq/L (98-107); Globulin 3.1 g/dL (2.4-3.5); Glucose 143 mg/dL (70-105); Magnesium 1.9 mg/dL (1.6-2.6); Osmolality,Calculated 286 (280-300); Phosphorous 2.1 mg/dL (2.7-4.5); Sodium 137 mEq/L (136-145); Total Protein 6.2 g/dL (6.4-8.9)
[2022-03-21 05:42] LABS: Creatine Kinase 15 Units/L (30-223)
[2022-03-21 05:55] LABS: Thyroid Stimulating Hormone 2.073 mcIU/mL (0.340-5.600)
[2022-03-21] MEDS ORDERED: Bisacodyl 10 MG RECTAL SUPPOSITORY RC PRN (09:10)
[2022-03-21] MEDS: *HR* OxyCODONE Immed Rel 5 MG TABLET PO PRN ×2 (09:13→20:17)
[2022-03-21] MEDS: Nystatin POWDER 30 GM BOTTLE TP SCH ×3 (09:48→20:16)
[2022-03-21] MEDS: Chlorhexidine Rinse 15 ML MOUTHWASH MM SCH ×2 (09:50→20:15)
[2022-03-21] MEDS: Linezolid 600 MG TABLET PO SCH ×2 (09:51→20:17)
[2022-03-21] MEDS: Furosemide 40 MG TABLET PO SCH (09:51)
[2022-03-21] MEDS: metroNIDAZOLE 500 MG TABLET PO SCH ×3 (09:51→18:00)
[2022-03-21] MEDS: Isosorbide MONOnitrate (24 HR) 30 MG TAB.ER.24H PO SCH (09:51)
[2022-03-21] MEDS: *HR* Amiodarone 200 MG TABLET PO SCH (09:52)
[2022-03-21] MEDS: Docusate Oral Soln 100 MG/10 ML UDC GTUBE SCH ×2 (09:52→20:15)
[2022-03-21] MEDS: Potassium Chloride Elixir 20 MEQ/15 ML UDC GTUBE SCH (09:52)
[2022-03-21] MEDS: Pantoprazole 40 MG VIAL IVP SCH (09:53)
[2022-03-21] MEDS: Spironolactone 25 MG TABLET PO SCH (09:54)
[2022-03-21] MEDS: Heparin 25,000UNIT/250ML 1/2NS 25,000 UNIT/250 ML IV.SOLN IVC SCH ×2 (10:55→21:43)
[2022-03-21] MEDS: Insulin DETEMIR 100 UNIT/ML X5UNITS SUBQ SCH ×2 (11:19→20:15)
[2022-03-21] MEDS: niCARdipine 20 MG/200 ML MLS IVC SCH ×2 (11:23→19:49)
[2022-03-21] MEDS: Albumin 25% 25gram/100mL 25 GM/100 ML IV.SOLN IVPB SCH ×3 (11:39→23:27)
[2022-03-21] MEDS ORDERED: Albumin 25% 25gram/100mL 25 GM/100 ML IV.SOLN IVPB SCH (16:00)
[2022-03-21] MEDS: Promethazine Syrup 6.25 MG/5 ML PO PRN (16:17)
[2022-03-21] MEDS: Melatonin 3 MG TABLET PO SCH (20:15)
[2022-03-22] MEDS: Dexmedetomidine HCl 400 MCG/100 ML MLS IVC SCH ×2 (01:01→15:34)
[2022-03-22] MEDS: *HR* Labetalol 20 MG/4 ML SYRINGE IVP PRN (02:49)
[2022-03-22] MEDS: Artificial Tears SOLN 15 ML BOTTLE BOTH EYES SCH ×5 (03:32→20:06)
[2022-03-22] MEDS: Insulin LISPRO 300 UNITS/3 ML VIAL SUBQ SCH ×5 (03:32→20:06)
[2022-03-22] MEDS: Sodium Chloride for inhalation 3 ML VIAL IH SCH ×2 (03:32→11:09)
[2022-03-22 03:54] LABS: VBG Ionized Calcium 1.13 mmol/L (1.15-1.35)
[2022-03-22 04:18] LABS: Basophils # 0.1 K/mcL (0.0-0.2); Basophils % 0.6 %; Eosinophils # 0.4 K/mcL (0.0-0.6); Eosinophils % 4.2 %; Hematocrit 28.3 % (37.5-50.1); Hemoglobin 9.1 g/dL (12.9-16.9); INR 1.5; Immature Granulocytes % 1.5 % (0-4); Lymphocytes # 1.6 K/mcL (0.6-4.6); Lymphocytes % 18.5 %; Mean Corpuscular HGB Conc 32.2 g/dL (31.6-35.5); Mean Corpuscular Hemoglobin 30.5 pg (28.0-33.3); Mean Platelet Volume 10.7 fL (9.4-12.4); Monocytes # 1.1 K/mcL (0.0-1.3); Monocytes % 12.7 %; Neutrophils # 5.3 K/mcL (1.6-8.9); Nucleated Red Blood Cells 0.2 /100 WBC (0); Platelet Count 213 K/mcL (140-400); Prothrombin Time 16.9 Seconds (9.4-12.1); Red Blood Count 2.98 M/mcL (4.19-5.50); Red Cell Distribution Width 17.2 % (11.5-14.5); Segmented Neutrophils % 62.5 %; White Blood Count 8.4 K/mcL (4.3-11.1)
[2022-03-22 04:25] LABS: Alanine Aminotransferase 8 Units/L (7-52); Albumin 3.6 g/dL (3.5-5.7); Albumin/Globulin Ratio 1.3 (1.1-2.2); Alkaline Phosphatase 105 Units/L (34-104); Aspartate Amino Transferase 10 Units/L (13-39); BUN/Creatinine Ratio 18 (6-26); Bilirubin,Direct 0.2 mg/dL (0.0-0.2); Bilirubin,Indirect 0.4 mg/dL (0.0-1.0); Bilirubin,Total 0.6 mg/dL (0.3-1.0); Blood Urea Nitrogen 11 mg/dL (6-20); Calcium 8.6 mg/dL (8.6-10.3); Carbon Dioxide 30 mEq/L (23-29); Chloride 100 mEq/L (98-107); Globulin 2.8 g/dL (2.4-3.5); Glucose 146 mg/dL (70-105); Magnesium 1.9 mg/dL (1.6-2.6); Osmolality,Calculated 286 (280-300); Phosphorous 1.7 mg/dL (2.7-4.5); Potassium 4.2 mEq/L (3.5-5.1); Sodium 137 mEq/L (136-145); Total Protein 6.4 g/dL (6.4-8.9)
[2022-03-22] MEDS: Heparin 25,000UNIT/250ML 1/2NS 25,000 UNIT/250 ML IV.SOLN IVC SCH ×2 (07:55→18:26)
[2022-03-22] MEDS: Potassium Chloride Elixir 20 MEQ/15 ML UDC GTUBE SCH (09:11)
[2022-03-22] MEDS: Docusate Oral Soln 100 MG/10 ML UDC GTUBE SCH ×2 (09:11→20:06)
[2022-03-22] MEDS: metroNIDAZOLE 500 MG TABLET PO SCH ×3 (09:12→20:05)
[2022-03-22] MEDS: Linezolid 600 MG TABLET PO SCH ×2 (09:12→20:05)
[2022-03-22] MEDS: *HR* Amiodarone 200 MG TABLET PO SCH (09:12)
[2022-03-22] MEDS: Furosemide 40 MG TABLET PO SCH (09:12)
[2022-03-22] MEDS: Spironolactone 25 MG TABLET PO SCH (09:12)
[2022-03-22] MEDS: carvediloL 25 MG TABLET PO SCH ×2 (09:12→16:29)
[2022-03-22] MEDS: Isosorbide MONOnitrate (24 HR) 30 MG TAB.ER.24H PO SCH (09:13)
[2022-03-22] MEDS: Chlorhexidine Rinse 15 ML MOUTHWASH MM SCH ×2 (09:13→20:05)
[2022-03-22] MEDS: Nystatin POWDER 30 GM BOTTLE TP SCH ×3 (09:14→20:07)
[2022-03-22] MEDS: Albumin 25% 25gram/100mL 25 GM/100 ML IV.SOLN IVPB SCH ×2 (09:36→16:22)
[2022-03-22] MEDS: Pantoprazole 40 MG VIAL IVP SCH (09:46)
[2022-03-22] MEDS: Insulin DETEMIR 100 UNIT/ML X5UNITS SUBQ SCH ×2 (09:48→20:13)
[2022-03-22] MEDS: Furosemide 40 MG/4 ML VIAL IVP SCH ×2 (10:12→16:26)
[2022-03-22] MEDS: *HR* Metoprolol 5 MG/5 ML VIAL IVP PRN ×2 (10:12→17:16)
[2022-03-22] MEDS ORDERED: *HR* Digoxin 0.5 MG/2 ML AMPUL IVP SCH (14:08)
[2022-03-22 14:37] LABS: Phosphorous 2.5 mg/dL (2.7-4.5)
[2022-03-22] MEDS: Melatonin 3 MG TABLET PO SCH (20:05)
[2022-03-23] MEDS: Albumin 25% 25gram/100mL 25 GM/100 ML IV.SOLN IVPB SCH ×2 (00:11→09:05)
[2022-03-23] MEDS: Artificial Tears SOLN 15 ML BOTTLE BOTH EYES SCH ×6 (00:12→20:33)
[2022-03-23] MEDS: Insulin LISPRO 300 UNITS/3 ML VIAL SUBQ SCH ×6 (00:12→20:55)
[2022-03-23] MEDS: Dexmedetomidine HCl 400 MCG/100 ML MLS IVC SCH ×2 (00:13→22:13)
[2022-03-23] MEDS: *HR* Labetalol 20 MG/4 ML SYRINGE IVP PRN ×2 (02:11→04:26)
[2022-03-23] MEDS: Heparin 25,000UNIT/250ML 1/2NS 25,000 UNIT/250 ML IV.SOLN IVC SCH (04:29)
[2022-03-23 04:37] LABS: VBG Ionized Calcium 1.09 mmol/L (1.15-1.35)
[2022-03-23 04:38] LABS: Basophils # 0.1 K/mcL (0.0-0.2); Basophils % 0.8 %; Eosinophils # 0.4 K/mcL (0.0-0.6); Eosinophils % 5.1 %; Hematocrit 29.9 % (37.5-50.1); Hemoglobin 9.2 g/dL (12.9-16.9); Immature Granulocytes % 2.1 % (0-4); Lymphocytes # 1.7 K/mcL (0.6-4.6); Lymphocytes % 22.3 %; Mean Corpuscular HGB Conc 30.8 g/dL (31.6-35.5); Mean Corpuscular Hemoglobin 29.6 pg (28.0-33.3); Mean Corpuscular Volume 96.1 fL (83.0-100.0); Mean Platelet Volume 10.8 fL (9.4-12.4); Monocytes % 13.6 %; Neutrophils # 4.2 K/mcL (1.6-8.9); Nucleated Red Blood Cells 0.5 /100 WBC (0); Platelet Count 235 K/mcL (140-400); Red Blood Count 3.11 M/mcL (4.19-5.50); Red Cell Distribution Width 17.7 % (11.5-14.5); Segmented Neutrophils % 56.1 %; White Blood Count 7.5 K/mcL (4.3-11.1)
[2022-03-23 04:53] LABS: INR 1.7; Prothrombin Time 18.5 Seconds (9.4-12.1)
[2022-03-23 04:56] LABS: Alanine Aminotransferase 8 Units/L (7-52); Albumin 3.9 g/dL (3.5-5.7); Albumin/Globulin Ratio 1.4 (1.1-2.2); Alkaline Phosphatase 116 Units/L (34-104); Aspartate Amino Transferase 11 Units/L (13-39); BUN/Creatinine Ratio 15 (6-26); Bilirubin,Direct 0.3 mg/dL (0.0-0.2); Bilirubin,Indirect 0.4 mg/dL (0.0-1.0); Bilirubin,Total 0.7 mg/dL (0.3-1.0); Blood Urea Nitrogen 11 mg/dL (6-20); Carbon Dioxide 34 mEq/L (23-29); Chloride 97 mEq/L (98-107); Digoxin 0.4 ng/mL (0.8-2.0); Globulin 2.7 g/dL (2.4-3.5); Glucose 221 mg/dL (70-105); Magnesium 1.6 mg/dL (1.6-2.6); Osmolality,Calculated 292 (280-300); Phosphorous 2.6 mg/dL (2.7-4.5); Potassium 3.9 mEq/L (3.5-5.1); Sodium 138 mEq/L (136-145); Total Protein 6.6 g/dL (6.4-8.9)
[2022-03-23] MEDS: Insulin DETEMIR 100 UNIT/ML X5UNITS SUBQ SCH ×2 (09:07→20:56)
[2022-03-23] MEDS: Isosorbide MONOnitrate (24 HR) 30 MG TAB.ER.24H PO SCH (09:14)
[2022-03-23] MEDS: *HR* Amiodarone 200 MG TABLET PO SCH ×2 (09:16→20:31)
[2022-03-23] MEDS: carvediloL 25 MG TABLET PO SCH (09:16)
[2022-03-23] MEDS: metroNIDAZOLE 500 MG TABLET PO SCH ×3 (09:16→20:30)
[2022-03-23] MEDS: Spironolactone 25 MG TABLET PO SCH (09:20)
[2022-03-23] MEDS: Linezolid 600 MG TABLET PO SCH ×2 (09:20→20:32)
[2022-03-23] MEDS: Docusate Oral Soln 100 MG/10 ML UDC GTUBE SCH (09:22)
[2022-03-23] MEDS: Potassium Chloride Elixir 20 MEQ/15 ML UDC GTUBE SCH (09:22)
[2022-03-23] MEDS: Digoxin Oral Liquid 125 MCG/2.5 ML ORAL.SYG GTUBE SCH (09:24)
[2022-03-23] MEDS: Furosemide 40 MG/4 ML VIAL IVP SCH ×2 (09:35→17:30)
[2022-03-23] MEDS: Nystatin POWDER 30 GM BOTTLE TP SCH ×3 (09:38→20:33)
[2022-03-23] MEDS: Chlorhexidine Rinse 15 ML MOUTHWASH MM SCH ×2 (09:38→20:30)
[2022-03-23] MEDS ORDERED: Metoprolol XL (24 HR) Succ 50 MG TAB.ER.24H PO SCH (13:15)
[2022-03-23] MEDS: Promethazine Syrup 6.25 MG/5 ML PO PRN (16:16)
[2022-03-23] MEDS ORDERED: Protamine Sulfate 50 MG/5 ML VIAL IVP ONE (17:41)
[2022-03-23] MEDS: niCARdipine 20 MG/200 ML MLS IVC SCH (17:44)
[2022-03-23 18:57] LABS: Hematocrit 27.9 % (37.5-50.1); Hemoglobin 8.7 g/dL (12.9-16.9)
[2022-03-23] MEDS: Melatonin 3 MG TABLET PO SCH ×2 (20:31→20:32)
[2022-03-23] MEDS ORDERED: Oxymetazoline Nasal Spray Bottle 30ML NS ONE (21:45)
[2022-03-23] MEDS ORDERED: Iopamidol - 370 500 ML MLS IVP ONE (22:00)
[2022-03-23 23:29] LABS: Hematocrit 19.6 % (37.5-50.1); Hemoglobin 8.4 g/dL (12.9-16.9)
[2022-03-24] MEDS: Insulin LISPRO 300 UNITS/3 ML VIAL SUBQ SCH ×6 (00:17→20:46)
[2022-03-24] MEDS: Artificial Tears SOLN 15 ML BOTTLE BOTH EYES SCH ×6 (00:22→20:44)
[2022-03-24] MEDS: niCARdipine 20 MG/200 ML MLS IVC SCH ×14 (00:29→22:48)
[2022-03-24] MEDS: Dexmedetomidine HCl 400 MCG/100 ML MLS IVC SCH ×9 (01:48→22:04)
[2022-03-24 04:28] LABS: Basophils # 0.1 K/mcL (0.0-0.2); Basophils % 0.6 %; Eosinophils % 0.1 %; Hematocrit 26.9 % (37.5-50.1); Hemoglobin 8.5 g/dL (12.9-16.9); Immature Granulocytes % 0.7 % (0-4); Lymphocytes # 0.8 K/mcL (0.6-4.6); Lymphocytes % 9.8 %; Mean Corpuscular HGB Conc 31.6 g/dL (31.6-35.5); Mean Corpuscular Hemoglobin 29.4 pg (28.0-33.3); Mean Corpuscular Volume 93.1 fL (83.0-100.0); Mean Platelet Volume 10.8 fL (9.4-12.4); Monocytes # 0.9 K/mcL (0.0-1.3); Monocytes % 11.1 %; Neutrophils # 6.3 K/mcL (1.6-8.9); Nucleated Red Blood Cells 0.2 /100 WBC (0); Platelet Count 235 K/mcL (140-400); Red Blood Count 2.89 M/mcL (4.19-5.50); Red Cell Distribution Width 17.3 % (11.5-14.5); Segmented Neutrophils % 77.7 %; White Blood Count 8.1 K/mcL (4.3-11.1)
[2022-03-24 04:35] LABS: Alanine Aminotransferase 8 Units/L (7-52); Albumin 3.9 g/dL (3.5-5.7); Albumin/Globulin Ratio 1.5 (1.1-2.2); Alkaline Phosphatase 110 Units/L (34-104); Aspartate Amino Transferase 10 Units/L (13-39); BUN/Creatinine Ratio 21 (6-26); Bilirubin,Direct 0.2 mg/dL (0.0-0.2); Bilirubin,Indirect 0.5 mg/dL (0.0-1.0); Bilirubin,Total 0.7 mg/dL (0.3-1.0); Blood Urea Nitrogen 15 mg/dL (6-20); Carbon Dioxide 33 mEq/L (23-29); Chloride 98 mEq/L (98-107); Digoxin 0.7 ng/mL (0.8-2.0); Globulin 2.6 g/dL (2.4-3.5); Glucose 233 mg/dL (70-105); Magnesium 1.7 mg/dL (1.6-2.6); Osmolality,Calculated 294 (280-300); Phosphorous 1.9 mg/dL (2.7-4.5); Potassium 4.1 mEq/L (3.5-5.1); Sodium 138 mEq/L (136-145); Total Protein 6.5 g/dL (6.4-8.9)
[2022-03-24] MEDS: Heparin 25,000UNIT/250ML 1/2NS 25,000 UNIT/250 ML IV.SOLN IVC SCH (07:35)
[2022-03-24] MEDS: Potassium Chloride Elixir 20 MEQ/15 ML UDC GTUBE SCH (07:45)
[2022-03-24] MEDS: Chlorhexidine Rinse 15 ML MOUTHWASH MM SCH ×2 (07:45→20:42)
[2022-03-24] MEDS: Furosemide 40 MG/4 ML VIAL IVP SCH ×2 (07:46→15:09)
[2022-03-24] MEDS: *HR* Amiodarone 200 MG TABLET PO SCH ×2 (07:49→20:43)
[2022-03-24] MEDS: Linezolid 600 MG TABLET PO SCH ×2 (07:59→20:43)
[2022-03-24] MEDS: Spironolactone 25 MG TABLET PO SCH (07:59)
[2022-03-24] MEDS: metroNIDAZOLE 500 MG TABLET PO SCH ×3 (08:01→20:44)
[2022-03-24] MEDS: Digoxin Oral Liquid 125 MCG/2.5 ML ORAL.SYG GTUBE SCH (08:02)
[2022-03-24] MEDS: Isosorbide MONOnitrate (24 HR) 30 MG TAB.ER.24H PO SCH (08:03)
[2022-03-24] MEDS: Insulin DETEMIR 100 UNIT/ML X5UNITS SUBQ SCH ×2 (08:16→20:46)
[2022-03-24] MEDS: Nystatin POWDER 30 GM BOTTLE TP SCH ×3 (08:16→20:44)
[2022-03-24] MEDS ORDERED: 0.9 % Sodium Chloride 250 ML ONE (09:30)
[2022-03-24 18:53] LABS: Hematocrit 25.9 % (37.5-50.1); Hemoglobin 8.3 g/dL (12.9-16.9)
[2022-03-24] MEDS: Melatonin 3 MG TABLET PO SCH (20:43)
[2022-03-24 21:51] VITALS: O2SAT 92
[2022-03-24 21:55] VITALS: TEMP 96.5
[2022-03-24 22:50] VITALS: BP 107/69; PULSE 62
== END 2022-03-23 23:25 | disposition short-term general hospital (02) | DRG 5 ==
LOC: 2NENU → SUATTDRO 02-24 00:58 → ICNU 03-13 22:57
PROVIDERS: ADMIT Internal Medicine; ATTEND Emergency Medicine